=== PATIENT | male | born 1945 | race Caucasian/White ===

== ENCOUNTER → 2017-02-18 | Outpatient (REF) | payer OTHER | LOC: M LAB REF 16:49 | PROVIDERS: ATTEND Orthopaedic Surgery | DX: M25.522 Pain in left elbow (principal) ==

== ENCOUNTER 2017-06-25 06:13 | Day surgery (SDC) | payer OTHER ==
[~2017-06-25] VITALS: Ht 182.9 cm; Wt 93.0 kg
[~2017-06-25 06:13] MED LIST: ACETAMINOPHEN 325 MG TAB PO PRN; ATEN100T PO; LR 500 ML IV SCH; MULT1TAB10 PO; NEXI40CA PO; RAMI5CA PO
[2017-06-25] MEDS ORDERED: LIDOCAINE 1% MDV 20ML VIAL SC ONE (06:30)
[2017-06-25] MEDS ORDERED: TRIAMCINOLONE PRES FR 40 MG/ML 1ML(TRIESENCE)(OR EYE ONLY)(J3300 PER 1MG) As Ordered ONE (06:41)
[2017-06-25] MEDS ORDERED: LIDOCAINE 1% SDV 5 ML VIAL As Ordered ONE (06:41)
[2017-06-25] MEDS ORDERED: POVIDONE-IODINE 5% OPHTH PREP SOL 30ML As Ordered ONE (06:41)
[2017-06-25] MEDS ORDERED: MOXIFLOXACIN IN BSS 0.25MG/0.25ML INTRACAMERAL INJ (OR EYE ONLY)(J2280) As Ordered ONE (06:42)
[2017-06-25] MEDS ORDERED: HEALON DUET (HEALON 10MG/ML 0.55ML & HEALON ENDOCOAT 30MG/ML 0.85ML) As Ordered ONE (06:42)
[2017-06-25] MEDS ORDERED: LIDOCAINE 3.5 % 1ML OPHTH TOPICAL GEL As Ordered ONE (06:43)
[2017-06-25] MEDS ORDERED: BSS with VANC/TOB/EPI for EYE CASES IR ONE (07:00)
[2017-06-25] MEDS ORDERED: CYCLOPENTOLATE 2% OPHTH SOLN 2ML BTL OS ONE (07:00)
[2017-06-25] MEDS ORDERED: TROPICAMIDE 1% OPHTH SOLN 2ML OS ONE (07:00)
[2017-06-25] MEDS ORDERED: LIDOCAINE 3.5 % 1ML OPHTH TOPICAL GEL OU ONE (07:00)
[2017-06-25] MEDS ORDERED: PHENYLEPHRINE 2.5% OPHTH SOL 2ML OS ONE (07:00)
[2017-06-25] MEDS ORDERED: OFLOXACIN 0.3 % (OCUFLOX) OPTH SOL 5ML OS ONE (07:00)
[2017-06-25] MEDS ORDERED: PROPARACAINE 0.5% OPHTH SOL 15ML OS PRN (07:01)
[2017-06-25] MEDS ORDERED: MIDAZOLAM INJ 2 MG/2 ML VIAL (J2250) As Ordered ONE (07:39)
[2017-06-25] MEDS ORDERED: fentaNYL 100 MCG/2 ML INJECTION (J3010) As Ordered ONE (07:39)
[2017-06-25] MEDS ORDERED: CEFUROXIME 1MG/0.1ML INTRACAMERAL INJ As Ordered ONE (07:56)
[2017-06-25 08:35] VITALS: BP 118/79
[2017-06-25] MEDS ORDERED: TRIMETHOBENZAMIDE 300 MG CAP PO PRN (08:45)
[2017-06-25] MEDS ORDERED: AcetaZOLAMIDE 500 MG ER CAP PO ONE (08:45)
[2017-06-25] MEDS ORDERED: KETOROLAC 0.5% OPHTH SOLN OS ONE (08:45)
== END 2017-06-25 08:58 | disposition home or self-care (01) ==
LOC: M SDC 06:13
PROVIDERS: ATTEND Ophthalmology
DX: H25.9 Unspecified age-related cataract (principal); I34.8 Other nonrheumatic mitral valve disorders; I10 Essential (primary) hypertension; Z79.899 Other long term (current) drug therapy; K21.9 Gastro-esophageal reflux disease without esophagitis; Z87.891 Personal history of nicotine dependence
CPT/HCPCS: 66984; J2250; J2280; J3010; J3300

== ENCOUNTER 2018-03-02 10:12 | Emergency (ER) | payer OTHER ==
[2018-03-02] MEDS: NS 1,000 ML IV (12:30)
[2018-03-02 13:04] LABS: BASO % 0.7 % (0.0-1.0); EOS # 0.1 10^3/uL (0.0-0.50); EOS % 1.9 % (0.0-3.0); HEMATOCRIT 49.4 % (42.0-52.0); HEMOGLOBIN 16.9 g/dl (13.5-17.5); IMMATURE GRANULOCYTE % 0.2 % (0-3.0); LYMPH # 1.4 10^3/uL (1.5-4.5); LYMPH % 34.2 % (24.0-44.0); MEAN CORPUSCULAR HEMOGLOBIN 33.4 pg (27.0-33.0); MEAN CORPUSCULAR HGB CONC 34.2 g/dl (32.0-36.5); MEAN CORPUSCULAR VOLUME 97.6 fl (80.0-96.0); MONO # 0.6 10^3/uL (0.0-0.8); NEUTROPHILS # 2.1 10^3/uL (1.8-7.7); PLATELET COUNT, AUTOMATED 204 10^3/uL (150-450); RED BLOOD COUNT 5.06 10^6/uL (4.30-6.10); RED CELL DISTRIBUTION WIDTH 12.8 % (11.5-14.5); WHITE BLOOD COUNT 4.2 10^3/uL (4.0-10.0)
[2018-03-02 13:17] LABS: INR 2.59; PROTHROMBIN TIME 28.9 SECONDS (12.4-14.5)
[2018-03-02 13:18] LABS: PARTIAL THROMBOPLASTIN TIME 47.2 SECONDS (26.8-37.9)
[2018-03-02 13:40] LABS: ALBUMIN 4.4 GM/DL (3.2-5.2); ALKALINE PHOSPHATASE 81 U/L (45-117); ALT/SGPT 55 U/L (12-78); ANION GAP 6 MEQ/L (8-16); AST/SGOT 63 U/L (7-37); BILIRUBIN,DIRECT 0.2 MG/DL (0.0-0.2); BILIRUBIN,TOTAL 0.6 MG/DL (0.2-1.0); BLOOD UREA NITROGEN 23 MG/DL (7-18); CALCIUM LEVEL 8.7 MG/DL (8.8-10.2); CARBON DIOXIDE LEVEL 27 MEQ/L (21-32); CHLORIDE LEVEL 109 MEQ/L (98-107); CREATININE FOR GFR 1.48 MG/DL (0.70-1.30); GLOMERULAR FILTRATION RATE 49.9 (>42); GLUCOSE, FASTING 93 MG/DL (70-100); LIPASE 413 U/L (73-393); POTASSIUM SERUM 4.6 MEQ/L (3.5-5.1); SODIUM LEVEL 142 MEQ/L (136-145); TOTAL PROTEIN 8.4 GM/DL (6.4-8.2)
[2018-03-02 13:42] LABS: LACTIC ACID SEPSIS PROTOCOL 0.7 MMOL/L (0.4-2.0)
== END 2018-03-02 15:07 | disposition home or self-care (01) ==
LOC: M ED 10:12
DX: R19.7 Diarrhea, unspecified (principal); E86.0 Dehydration; I48.91 Unspecified atrial fibrillation; K21.9 Gastro-esophageal reflux disease without esophagitis; Z79.899 Other long term (current) drug therapy; Z79.01 Long term (current) use of anticoagulants
CPT/HCPCS: 83690

== ENCOUNTER 2019-03-10 08:57 | Emergency (ER) | payer OTHER ==
[~2019-03-10] VITALS: Ht 182.9 cm; Wt 100.1 kg
[~2019-03-10 08:57] MED LIST changes: -ACETAMINOPHEN 325 MG TAB PO PRN; +DRON40TA PO; -LR 500 ML IV SCH; +RAMI1CAP24 PO; -RAMI5CA PO; +ROSU40TA3 PO; +XARE20TA PO
[2019-03-10] MEDS ORDERED: METO1TAB7 PO (09:20)
[2019-03-10 09:26] LABS: BASO # 0.1 10^3/uL (0.0-0.2); BASO % 1.2 % (0.0-1.0); EOS # 0.2 10^3/uL (0.0-0.50); EOS % 2.9 % (0.0-3.0); HEMATOCRIT 49.4 % (42.0-52.0); HEMOGLOBIN 16.1 g/dl (13.5-17.5); LYMPH # 2.9 10^3/uL (1.5-4.5); MEAN CORPUSCULAR HEMOGLOBIN 32.5 pg (27.0-33.0); MEAN CORPUSCULAR HGB CONC 32.6 g/dl (32.0-36.5); MONO # 0.6 10^3/uL (0.0-0.8); MONO % 8.5 % (0.0-5.0); NEUTROPHILS % 43.4 % (36.0-66.0); PLATELET COUNT, AUTOMATED 220 10^3/uL (150-450); RED BLOOD COUNT 4.95 10^6/uL (4.30-6.10); WHITE BLOOD COUNT 6.9 10^3/uL (4.0-10.0)
[2019-03-10] MEDS ORDERED: ETOMIDATE INJ 20MG/10ML VIAL IV STA (09:30)
[2019-03-10] MEDS ORDERED: ETOMIDATE INJ 20MG/10ML VIAL As Ordered ONE (09:30)
[2019-03-10] MEDS ORDERED: AMIODARONE HCL 360 MG/200 ML PREMIXED BAG (NEXTERONE) As Ordered ONE (09:35)
[2019-03-10 09:37] LABS: MEAN CORPUSCULAR VOLUME 99.8 fl (80.0-96.0)
[2019-03-10] MEDS ORDERED: AMIODARONE HCL 360 MG in APPROPRIATE DILUENT 1 EA IV SCH (09:45)
[2019-03-10 09:46] LABS: INR 1.7; PROTHROMBIN TIME 20.3 SECONDS (12.1-14.4)
[2019-03-10 09:47] LABS: PARTIAL THROMBOPLASTIN TIME 31.5 SECONDS (25.4-37.6)
[2019-03-10] MEDS ORDERED: NS 1,000 ML IV SCH (10:10)
[2019-03-10 10:12] LABS: ALBUMIN 3.8 GM/DL (3.2-5.2); ALT/SGPT 52 U/L (12-78); BILIRUBIN,DIRECT < 0.1 MG/DL (0.0-0.2); BILIRUBIN,TOTAL 0.3 MG/DL (0.2-1.0); BLOOD UREA NITROGEN 17 MG/DL (7-18); CALCIUM LEVEL 8.7 MG/DL (8.8-10.2); CARBON DIOXIDE LEVEL 19 MEQ/L (21-32); CHLORIDE LEVEL 106 MEQ/L (98-107); CPK CREATINE PHOSPHOKINASE 115 U/L (39-308); GLOMERULAR FILTRATION RATE 37.3 (>42); GLUCOSE, FASTING 290 MG/DL (70-100); LIPASE 423 U/L (73-393); MB/CK RELATIVE INDEX 10.35 (< OR =4); POTASSIUM SERUM 3.6 MEQ/L (3.5-5.1); SODIUM LEVEL 140 MEQ/L (136-145); TOTAL PROTEIN 7.6 GM/DL (6.4-8.2); TROPONIN I 0.15 NG/ML (< 0.10)
[2019-03-10 10:13] LABS: FREE T4 0.84 NG/DL (0.76-1.46)
--- NOTE | 2019-03-10 10:13 | REP ---
CHEST, PORTABLE: AP portable view of the chest is performed and compared to a prior study 11/24/2004. There is mild cardiomegaly and venous hypertension. No infiltrate is seen. There is marked tortuosity of the thoracic aorta. The mediastinal silhouette is otherwise unremarkable. IMPRESSION: Mild cardiomegaly. Venous hypertension. No acute infiltrate. Electronically Signed by Ramesh Soto MD 03/10/2019 03:37 P
[2019-03-10] MEDS ORDERED: HEPARIN DRIP 25,000 UNITS in APPROPRIATE DILUENT 1 EA IV SCH (10:20)
--- NOTE | 2019-03-10 10:27 | REP ---
CT study of the cervical spine without contrast: History: Trauma. Technique: Helical scanning is acquired and overlapping 2 mm high resolution axial images were generated and reviewed at bone and soft tissue window settings. Coronal and sagittal multiplanar re-formations images are generated. CT findings: A nasopharyngeal airway is noted in place. Osteoarthritic changes are seen at the C1-2 articulation and in the cervical spine facets. There is a degenerative cyst associated with facet osteoarthritis in the lateral articular pillar of the CT for level on the left. Degenerative disc changes are noted most pronounced at C6-7. There is no evidence of cervical spine element fracture. No skull base fracture is seen. Cervical vertebral body heights are preserved. Alignment is normal. Facet joints are normally aligned bilaterally at each cervical level on multiplanar re-formations images. There is no evidence of intraspinal or paraspinal hematoma. No extra vertebral abnormality is seen. Impression: Degenerative spondylosis changes as noted above. Otherwise negative CT study of the cervical spine without contrast. No fracture seen. The nasopharyngeal airway is noted in place. Electronically Signed by Neno Blanco MD 03/10/2019 10:19 A
--- NOTE | 2019-03-10 10:39 | REP ---
CT BRAIN WITHOUT CONTRAST: CT brain performed without IV contrast. There is a moderate degree of atrophy. There is no midline shift. There are patchy periventricular small vessel ischemic changes. There is no acute hemorrhage or extra-axial fluid collection. No skull fracture is seen. There is a catheter in the right nasal cavity. There is a retention cyst in the floor of the right maxillary sinus. IMPRESSION: No evidence of acute intracranial hemorrhage or skull fracture. Electronically Signed by Ramesh Soto MD 03/10/2019 03:38 P
[2019-03-10 11:03] VITALS: BP 138/88
--- NOTE | 2019-03-10 20:28 | ECGEPIP ---
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
--- NOTE | 2019-03-10 20:30 | ECGEPIP ---
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
== END 2019-03-10 11:03 | disposition short-term general hospital (02) ==
LOC: EDBD 08:57 → M ED 08:57 → EDUNIT# 08:57 → M ED 11:03
DX: I47.2 Ventricular tachycardia (principal); I24.9 Acute ischemic heart disease, unspecified; I10 Essential (primary) hypertension; I48.91 Unspecified atrial fibrillation; E78.5 Hyperlipidemia, unspecified; Z79.899 Other long term (current) drug therapy; Z79.01 Long term (current) use of anticoagulants

== ENCOUNTER → 2019-08-13 | Outpatient (CLI) | payer OTHER ==
[~2019-08-13] MED LIST changes: +METO1TAB7 PO; -ROSU40TA3 PO; +ROSU40TA4 PO
[2019-08-13 15:55] LABS: HEMATOCRIT 46.5 % (42.0-52.0); HEMOGLOBIN 16.1 g/dl (13.5-17.5); MEAN CORPUSCULAR HEMOGLOBIN 34.8 pg (27.0-33.0); MEAN CORPUSCULAR HGB CONC 34.6 g/dl (32.0-36.5); MEAN CORPUSCULAR VOLUME 100.6 fl (80.0-96.0); PLATELET COUNT, AUTOMATED 142 10^3/uL (150-450); RED BLOOD COUNT 4.62 10^6/uL (4.30-6.10); WHITE BLOOD COUNT 4.4 10^3/uL (4.0-10.0)
[2019-08-13 16:18] LABS: ALT/SGPT 35 U/L (12-78); BLOOD UREA NITROGEN 17 MG/DL (7-18); CALCIUM LEVEL 8.7 MG/DL (8.8-10.2); CARBON DIOXIDE LEVEL 30 MEQ/L (21-32); CHLORIDE LEVEL 104 MEQ/L (98-107); CREATININE FOR GFR 1.51 MG/DL (0.70-1.30); GLOMERULAR FILTRATION RATE 48.6 (>42); GLUCOSE, FASTING 119 MG/DL (70-100); POTASSIUM SERUM 3.8 MEQ/L (3.5-5.1); SODIUM LEVEL 140 MEQ/L (136-145)
[2019-08-13 16:19] LABS: ALBUMIN 3.9 GM/DL (3.2-5.2); BILIRUBIN,TOTAL 0.6 MG/DL (0.2-1.0); C REACTIVE PROTEIN QUANTITATIV < 0.30 MG/DL (0.00-0.30); LIPASE 218 U/L (73-393); TOTAL PROTEIN 7.4 GM/DL (6.4-8.2)
[2019-08-19 00:08] LABS: FATS NEUTRAL Normal (.); FATS TOTAL Normal (.)
== END ==
LOC: M LAB 14:51
PROVIDERS: ATTEND Internal Medicine Gastroenterology
DX: R10.13 Epigastric pain (principal); R19.7 Diarrhea, unspecified

== ENCOUNTER → 2019-10-22 | Outpatient (REF) | payer OTHER ==
[2019-10-22 18:13] LABS: APPEARANCE, URINE CLEAR (CLEAR); BACTERIA, URINE AUTO NEGATIVE (NEGATIVE); BILIRUBIN, URINE AUTO NEGATIVE (NEGATIVE); BLOOD, URINE BLOOD 1+ (NEGATIVE); COLOR, URINE YELLOW (YELLOW); GLUCOSE, URINE (UA) AUTO NEGATIVE (NEGATIVE); KETONE, URINE AUTO NEGATIVE (NEGATIVE); LEUKOCYTE ESTERASE, URINE AUTO NEGATIVE (NEGATIVE); NITRITE, URINE AUTO NEGATIVE (NEGATIVE); PROTEIN, URINE AUTO NEGATIVE (NEGATIVE); RBC, URINE AUTO 1 /HPF (0-3); SPECIFIC GRAVITY URINE AUTO 1.018 (1.002-1.035); SQUAMOUS EPITHELIAL CELL UR AU 0 /HPF (0-6); UROBILINOGEN, URINE AUTO 0.2 mg/dL (0.0-2.0); WBC, URINE AUTO 1 /HPF (0-3)
== END ==
LOC: M SMT 16:44
PROVIDERS: ATTEND Urology
DX: R35.1 Nocturia (principal)

== ENCOUNTER → 2020-02-17 | Outpatient (CLI) | payer OTHER ==
[2020-02-17 11:25] LABS: BASO % 0.7 % (0.0-1.0); EOS # 0.2 10^3/uL (0.0-0.5); EOS % 4.1 % (0.0-3.0); HEMATOCRIT 47.3 % (42.0-52.0); HEMOGLOBIN 16.2 g/dl (13.5-17.5); LYMPH # 1.4 10^3/uL (1.5-5.0); LYMPH % 26.8 % (24.0-44.0); MEAN CORPUSCULAR HEMOGLOBIN 34.8 pg (27.0-33.0); MEAN CORPUSCULAR HGB CONC 34.2 g/dl (32.0-36.5); MEAN CORPUSCULAR VOLUME 101.7 fl (80.0-96.0); MONO # 0.8 10^3/uL (0.0-0.8); MONO % 15.1 % (0.0-5.0); NEUTROPHILS # 2.8 10^3/uL (1.5-8.5); NEUTROPHILS % 52.7 % (36.0-66.0); PLATELET COUNT, AUTOMATED 161 10^3/uL (150-450); RED BLOOD COUNT 4.65 10^6/uL (4.30-6.10); WHITE BLOOD COUNT 5.4 10^3/uL (4.0-10.0)
[2020-02-17 11:53] LABS: ALBUMIN 4.1 GM/DL (3.2-5.2); BILIRUBIN,DIRECT 0.2 MG/DL (0.0-0.2); BILIRUBIN,TOTAL 0.5 MG/DL (0.2-1.0); CREATININE FOR GFR 1.39 MG/DL (0.70-1.30); FREE T4 1.17 NG/DL (0.76-1.46); GLOMERULAR FILTRATION RATE 53.3 (>42); POTASSIUM SERUM 4.1 MEQ/L (3.5-5.1); THYROID STIMULATING HORMONE 3.14 uIU/ML (0.358-3.740); TOTAL PROTEIN 7.8 GM/DL (6.4-8.2)
== END ==
LOC: M PLALAB 10:20
PROVIDERS: ATTEND Internal Medicine Cardiovascular Disease
DX: R06.09 Other forms of dyspnea (principal); Z79.899 Other long term (current) drug therapy

== ENCOUNTER → 2020-02-18 | Outpatient (CLI) | payer OTHER | LOC: M LABSMTC 10:47 | PROVIDERS: ATTEND Family Medicine | DX: Z11.59 Encounter for screening for other viral diseases (principal); Z20.828 Contact with and (suspected) exposure to other viral communicable diseases ==

== ENCOUNTER → 2020-03-06 | Outpatient (CLI) | payer OTHER ==
[2020-03-06 14:40] LABS: ALBUMIN 3.7 GM/DL (3.2-5.2); BILIRUBIN,DIRECT 0.2 MG/DL (0.0-0.2); BILIRUBIN,TOTAL 0.8 MG/DL (0.2-1.0); FREE T4 1.42 NG/DL (0.76-1.46); THYROID STIMULATING HORMONE 1.99 uIU/ML (0.358-3.740); TOTAL PROTEIN 7.2 GM/DL (6.4-8.2)
[2020-03-06 14:41] LABS: TOTAL T3 72.8 NG/DL (60.0-181.0)
== END ==
LOC: M LAB 13:19
PROVIDERS: ATTEND Internal Medicine Cardiovascular Disease
DX: R06.02 Shortness of breath (principal); T46.2X5A Adverse effect of other antidysrhythmic drugs, initial encounter

== ENCOUNTER → 2020-03-20 | Outpatient (CLI) | payer OTHER ==
[~2020-03-20] MED LIST changes: +VITAD1000T PO
== END ==
LOC: M LABSMTC 11:55
PROVIDERS: ATTEND Anesthesiology
DX: Z01.818 Encounter for other preprocedural examination (principal); Z11.59 Encounter for screening for other viral diseases
CPT/HCPCS: C9803; U0003

== ENCOUNTER 2020-03-23 07:45 | Day surgery (SDC) | payer OTHER ==
[~2020-03-23] VITALS: Ht 182.9 cm; Wt 94.8 kg
[2020-03-23] MEDS: NS 1,000 ML IV ONE (08:06)
[2020-03-23] MEDS ORDERED: LIDOCAINE 2% 100MG/5ML SDV (FOR ANES.) As Ordered ONE (09:04)
[2020-03-23] MEDS ORDERED: propofoL 200 MG/20 ML VIAL As Ordered ONE (09:04)
--- NOTE | 2020-03-23 09:21 | ROOR ---
Patient Name: Antony Daniel Procedure Date: 03/23/2020 8:51 AM Date of : 1945 Age: 74 Room: [facility] Gender: Male Note Status: Finalized Procedure: Colonoscopy Indications: High risk colon cancer surveillance: Personal history of colonic polyps Providers: Jt Oneil Jr, MD Referring MD: Skyla Cole MD Requesting Provider: Medicines: Propofol per Anesthesia Complications: No immediate complications. Procedure: Pre-Anesthesia Assessment: - Prior to the procedure, a History and Physical was performed, and patient medications and allergies were reviewed. The patient is competent. The risks and benefits of the procedure and the sedation options and risks were discussed with the patient. All questions were answered and informed consent was obtained. Patient identification and proposed procedure were verified by the physician and the nurse in the pre-procedure area and in the procedure room. Mental Status Examination: alert and oriented. Airway Examination: normal oropharyngeal airway and neck mobility. Respiratory Examination: clear to auscultation. CV Examination: normal. ASA Grade Assessment: III - A patient with severe systemic disease. After reviewing the risks and benefits, the patient was deemed in satisfactory condition to undergo the procedure. The anesthesia plan was to use moderate sedation / analgesia (conscious sedation). Immediately prior to administration of medications, the patient was re-assessed for adequacy to receive sedatives. The heart rate, respiratory rate, oxygen saturations, blood pressure, adequacy of pulmonary ventilation, and response to care were monitored throughout the procedure. The physical status of the patient was re-assessed after the procedure. The Colonoscope was introduced through the anus and advanced to the cecum, identified by appendiceal orifice and ileocecal valve. The colonoscopy was performed without difficulty. The patient tolerated the procedure well. The quality of the bowel preparation was adequate. Findings: The rectum, recto-sigmoid colon, descending colon, transverse colon, cecum, appendiceal orifice and ileocecal valve appeared normal. Three sessile polyps were found in the sigmoid colon, transverse colon and ascending colon. The polyps were small in size. These polyps were removed with a cold snare. Resection and retrieval were complete. Non-bleeding internal hemorrhoids were found during retroflexion and during endoscopy. The hemorrhoids were Grade III (internal hemorrhoids that prolapse but require manual reduction). Impression: - The rectum, recto-sigmoid colon, descending colon, transverse colon, cecum, appendiceal orifice and ileocecal valve are normal. - Three small polyps in the sigmoid colon, in the transverse colon and in the ascending colon, removed with a cold snare. Resected and retrieved. - Non-bleeding internal hemorrhoids. Recommendation: - Repeat colonoscopy in 3 - 5 years for surveillance based on pathology results. Jt Oneil MD Jt Oneil Jr, MD 03/23/2020 9:20:39 AM Electronically signed by Jt Oneil Jr, MD Number of Addenda: 0 Note Initiated On: 03/23/2020 8:51 AM Estimated Blood Loss: Estimated blood loss: none.
[2020-03-23 09:40] VITALS: BP 156/86
== END 2020-03-23 10:00 | disposition home or self-care (01) ==
LOC: M OPP 07:45
PROVIDERS: ATTEND Surgery
DX: K64.2 Third degree hemorrhoids (principal); K63.5 Polyp of colon; Z86.010 Personal history of colon polyps; Z09 Encounter for follow-up examination after completed treatment for conditions other than malignant neoplasm; K21.9 Gastro-esophageal reflux disease without esophagitis; Z79.899 Other long term (current) drug therapy; Z87.891 Personal history of nicotine dependence; Z86.13 Personal history of malaria; I48.91 Unspecified atrial fibrillation; Z95.810 Presence of automatic (implantable) cardiac defibrillator

== ENCOUNTER → 2020-08-24 | Outpatient (CLI) | payer SELFPAY ==
[~2020-08-24] MED LIST changes: +D31000TA2 PO; -VITAD1000T PO
== END ==
LOC: M LABSMTC 12:34
PROVIDERS: ATTEND Pediatrics
DX: Z11.59 Encounter for screening for other viral diseases (principal)

== ENCOUNTER → 2020-09-26 | Outpatient (CLI) | payer SELFPAY | LOC: M LABSMTC 10:09 | PROVIDERS: ATTEND Pediatrics | DX: Z11.59 Encounter for screening for other viral diseases (principal) ==

== ENCOUNTER → 2020-11-30 | Outpatient (CLI) | payer OTHER ==
--- NOTE | 2020-11-30 10:05 | REPVR ---
PROCEDURE INFORMATION: Exam: CT Temporal Bones Without Contrast. Exam date and time: 11/30/2020 8:54 AM Age: 75 years old Clinical indication: Other: Hearing loss; Additional info: Sensorineural hearing loss, bilateral TECHNIQUE: Imaging protocol: Computed tomography images of the temporal bones without contrast. Radiation optimization: All CT scans at this facility use at least one of these dose optimization techniques: automated exposure control; mA and/or kV adjustment per patient size (includes targeted exams where dose is matched to clinical indication); or iterative reconstruction. COMPARISON: CT Head without contrast 03/10/2019 9:44 AM FINDINGS: Right inner ear: Normal. Right ossicles and middle ear: Normal. The middle ear ossicles are intact. Right external auditory canal: Normal. Right facial nerve canal: Normal. Right jugular foramen: No jugular dehiscence. Right carotid canal: No aberrent carotid canal. Right mastoid air cells: Normal. No mastoid effusions. Left inner ear: Normal. Left ossicles and middle ear: Normal. The middle ear ossicles are intact. Left external auditory canal: Normal. Left facial nerve canal: Normal. Left jugular foramen: No jugular dehiscence. Left carotid canal: No aberrent carotid canal. Left mastoid air cells: Normal. No mastoid effusions. Soft tissues: Unremarkable. IMPRESSION: No acute findings. Electronically signed by: Dann Nunez On 11/30/2020 10:05:23 AM
== END ==
LOC: M RAD 08:48
PROVIDERS: ATTEND Otolaryngology
DX: H90.3 Sensorineural hearing loss, bilateral (principal)

== ENCOUNTER → 2021-05-15 | Outpatient (CLI) | payer OTHER ==
[~2021-05-15] MED LIST changes: +DRON400T PO; -DRON40TA PO
--- NOTE | 2021-05-15 17:03 | REP ---
INDICATION: CERVICALGIA. COMPARISON: None. TECHNIQUE: Nine views including flexion extension lateral views. FINDINGS: Lateral views done in flexion extension and neutral position show straightening. Alignment is otherwise normal. Vertebral body heights are preserved. Disc spaces are maintained except at C5-6 and C6-7. These levels are slightly narrowed in there is anterior osteophyte formation at these 2 levels. No subluxation or instability is seen. Open mouth odontoid view is unremarkable. AP radiograph demonstrates osteoarthritic facet hypertrophy most pronounced on the left at C2-3 and C3-4 but also present bilaterally at C4-5. Oblique images demonstrate neural foraminal encroachment from facet arthropathy on the left at C2-3 C3-4 and C4-5 and on the right at C4-5. A cardiac pacemaker is noted. Swimmer's lateral view shows no additional abnormality. IMPRESSION: Degenerative spondylosis changes as noted above. No acute bony abnormality. <Electronically signed by Aldo Blanco > 05/15/21 [id number]
== END ==
LOC: M RAD 11:26
PROVIDERS: ATTEND Family Medicine
DX: M47.812 Spondylosis without myelopathy or radiculopathy, cervical region (principal); Z95.0 Presence of cardiac pacemaker

== ENCOUNTER 2021-06-27 15:47 | Inpatient (IN) | payer OTHER ==
[~2021-06-27] VITALS: Ht 182.9 cm; Wt 93.3 kg
[2021-06-27] MEDS ORDERED: VERA120C3 PO (16:15)
--- NOTE | 2021-06-27 16:45 | REP ---
INDICATION: DYSPNEA/COUGH. COMPARISON: Comparison portable chest x-ray March 10, 2019. TECHNIQUE: Portable upright AP chest radiograph. FINDINGS: Bipolar pacemaker is seen in place. Heart is mildly enlarged unchanged. Pulmonary vasculature is cephalized as before. The pleural angles are sharp. There is linear density in the left base consistent with platelike atelectasis. No definite infiltrate. IMPRESSION: Linear density in the left base consistent with platelike atelectasis. Cardiomegaly and cephalization. Pacemaker. Otherwise no acute disease. <Electronically signed by Aldo Blanco > 06/27/21 [id number]
[2021-06-27] MEDS ORDERED: ACETAMINOPHEN TAB 650MG DOSE (2X325MG) PO ONE (17:15)
[2021-06-27] MEDS ORDERED: METOPROLOL 5 MG/5 ML VIAL IV STA (17:16)
[2021-06-27] MEDS ORDERED: RAMI1CAP26 PO (17:50)
[2021-06-27] MEDS ORDERED: METH25TAB PO (17:50)
[2021-06-27] MEDS ORDERED: TOPR100T PO (17:50)
[2021-06-27] MEDS ORDERED: D31000TA2 PO (17:51)
[2021-06-27] MEDS ORDERED: HOME MED LIST COMPLETE! XX SCH (17:55)
[2021-06-27 18:41] LABS: BASO % 0.2 % (0.0-1.0); HEMATOCRIT 44.2 % (42.0-52.0); HEMOGLOBIN 14.7 g/dl (13.5-17.5); LYMPH # 1.1 10^3/uL (1.5-5.0); LYMPH % 10.3 % (24.0-44.0); MEAN CORPUSCULAR HEMOGLOBIN 32.7 pg (27.0-33.0); MEAN CORPUSCULAR HGB CONC 33.3 g/dl (32.0-36.5); MEAN CORPUSCULAR VOLUME 98.4 fl (80.0-96.0); MONO # 1.7 10^3/uL (0.0-0.8); MONO % 15.9 % (2.0-8.0); NEUTROPHILS % 73.1 % (36.0-66.0); PLATELET COUNT, AUTOMATED 162 10^3/uL (150-450); RED BLOOD COUNT 4.49 10^6/uL (4.30-6.10)
[2021-06-27 19:02] LABS: INR 1.79; PROTHROMBIN TIME 21.2 SECONDS (12.7-14.5)
[2021-06-27 19:03] LABS: PARTIAL THROMBOPLASTIN TIME 47.3 SECONDS (25.9-37.0)
[2021-06-27 19:04] LABS: ALBUMIN 3.6 GM/DL (3.2-5.2); ALT/SGPT 26 U/L (12-78); BILIRUBIN,DIRECT 0.4 MG/DL (0.0-0.2); BILIRUBIN,TOTAL 1.1 MG/DL (0.2-1.0); BLOOD UREA NITROGEN 14 MG/DL (7-18); CALCIUM LEVEL 9.1 MG/DL (8.8-10.2); CARBON DIOXIDE LEVEL 27 MEQ/L (21-32); CHLORIDE LEVEL 106 MEQ/L (98-107); CK-MB VALUE MASS < 1.0 NG/ML (<3.6); CPK CREATINE PHOSPHOKINASE 23 U/L (39-308); CREATININE FOR GFR 1.07 MG/DL (0.70-1.30); FERRITIN 159 NG/ML (26-388); GLOMERULAR FILTRATION RATE > 60.0 (>42); GLUCOSE, FASTING 106 MG/DL (70-100); LDH LACTATE DEHYDROGENASE 222 U/L (87-241); MAGNESIUM LEVEL 1.7 MG/DL (1.8-2.4); MB/CK RELATIVE INDEX 4.35 (< OR =4); NT-PRO BNP 2210 PG/ML (<125); POTASSIUM SERUM 4.3 MEQ/L (3.5-5.1); SODIUM LEVEL 137 MEQ/L (136-145); THYROID STIMULATING HORMONE < 0.005 uIU/ML (0.358-3.740); TOTAL PROTEIN 7.7 GM/DL (6.4-8.2); TROPONIN I 0.04 NG/ML (< 0.10)
[2021-06-27 19:05] LABS: D-DIMER QUANT 694.39 ng/ml (<500)
[2021-06-27] MEDS ORDERED: ISOVUE-370 76% 100ML VIAL As Ordered ONE (19:38)
[2021-06-27 19:44] LABS: WHITE BLOOD COUNT 10.9 10^3/uL (4.0-10.0)
[2021-06-27 21:24] LABS: FREE T4 2.11 NG/DL (0.76-1.46)
--- NOTE | 2021-06-27 23:31 | REPVR ---
PROCEDURE INFORMATION: Exam: CTA Chest With Contrast Exam date and time: 06/27/2021 11:13 PM Age: 75 years old Clinical indication: Other: Covid positive chest pain SOB TECHNIQUE: Imaging protocol: Computed tomographic angiography of the chest with contrast. 3D rendering (Not supervised by radiologist): MIP and/or 3D reconstructed images were created by the technologist. Radiation optimization: All CT scans at this facility use at least one of these dose optimization techniques: automated exposure control; mA and/or kV adjustment per patient size (includes targeted exams where dose is matched to clinical indication); or iterative reconstruction. Contrast material: ISOVUE 370; Contrast volume: 75 ml; Contrast route: INTRAVENOUS (IV); COMPARISON: CR PORTABLE CHEST X-RAY 06/27/2021 4:26 PM FINDINGS: Pulmonary arteries: Normal. No pulmonary emboli. Aorta: Unremarkable. No aortic aneurysm. No aortic dissection. Lungs: Unremarkable. No consolidation. No masses. Pleural spaces: Unremarkable. No pneumothorax. No pleural effusion. Heart: Unremarkable. No cardiomegaly. No pericardial effusion. Lymph nodes: Unremarkable. No enlarged lymph nodes. Bones/joints: Unremarkable. No acute fracture. Soft tissues: Unremarkable. IMPRESSION: No acute findings. Electronically signed by: Kendall Lockwood On 06/27/2021 23:31:43 PM
--- NOTE | 2021-06-28 03:20 | HPEPDOC ---
General Date of Admission 06/28/2021 Date of Service: Jun 28, 2021 Chief Complaint The patient is a 75-year-old male admitted with a reason for visit of Atrial Fibrillation W/Rvr,Covid, Hyperthyroidism. Source: Patient, Old records Exam Limitations: No limitations Timing/Duration: Day(s) (7) Severity: Moderate History of Present Illness Patient is a very pleasant 75 year old male with past medical history of A. fib and hyperthyroidism who was tested positive for Covid-19 presented to ER via ambulance due to dyspnea for 7 days. He reported dyspnea has been about the same. Denies any coughing, rhinorrhea, loss of smell, loss of taste, chills, nausea, vomiting, diarrhea. He reported a temperature of 100.2F yesterday. He said he has no known sick contract or recent travel history. Home Medications Scheduled Cholecalciferol (Vitamin D3) (Vitamin D3) 1,000 Unit Tablet, 1,000 UNITS PO DAILY, (Reported) Methimazole (Methimazole) 5 Mg Tablet, 5 MG PO BID, (Reported) NEW MED, NOT STARTED YET Metoprolol Succinate (Toprol Xl) 100 Mg Tab.er.24h, 100 MG PO DAILY, (Reported) Ramipril (Ramipril) 10 Mg Capsule, 10 MG PO DAILY, (Reported) Rivaroxaban (Xarelto) 20 Mg Tab, 20 MG PO DAILY, (Reported) Rosuvastatin Calcium (Rosuvastatin Calcium) 40 Mg Tab, 40 MG PO DAILY, (Reported) Verapamil HCl (Verapamil Sr) 120 Mg Cap24h.pel, 120 MG PO QHS, (Reported) Allergies Coded Allergies: No Known Allergies (Unverified , 03/20/20) Past Medical History Medical History A. fib s/p pacemaker placement Hypertrophic obstructive cardiomyopathy Vitamin D deficiency Hyperthyroidism Surgical History Colonoscopy 2013 Pacemaker and defibrillator placement 2019 Family History Both parents were Social History * Smoker: Denies Recent Travel/Sick Contacts: Denies: Recent travel, Recent sick contacts A-FIB/CHADSVASC A-FIB History Current/History of A-Fib/PAF?: Yes Current PO Anticoag Therapy: Yes Age/Risk Factor Scoring CHADSVASC: CHADSVASC Response (Comments) Value Age Risk Factor Age >/= 75 years old 2 Gender Risk Factor Male 0 Hx of CHF No 0 Hx of HTN No 0 Hx of Stroke/TIA/or VTE No 0 Hx of Diabetes No 0 Hx of Vascular Disease No 0 Total 2 Review of Systems Constitutional: Denies: Chills ENT: Denies: Ear Pain, Other Symptoms (Denies rhinorrhea or loss of smell/loss of taste) Pulmonary: Reports: Dyspnea; Denies: Cough Cardiovascular: Denies: Chest Pain, Palpitations, Orthopnea Gastrointestinal: Denies: Nausea, Vomiting, Abdominal Pain, Diarrhea Neurological: Denies: Weakness Physical Examination General Exam: Positive: Alert, Cooperative, No Acute Distress Eye Exam: Positive: Conjunctiva & lids normal; Negative: Sclera icteric ENT Exam: Positive: Atraumatic, Mucous membr. moist/pink, Tongue Midline Neck Exam: Positive: Supple Chest Exam: Positive: Clear to auscultation, Normal air movement; Negative: Rales, Rhonchi, Wheezing Heart Exam: Positive: Rate Normal, Regular Rhythm; Negative: Murmurs Extremity Exam: Negative: Edema Skin Exam: Positive: Nl turgor and temperature Neuro Exam: Positive: Normal Speech Psych Exam: Positive: Mental status NL, Mood NL, Memory Intact, Oriented x 3 Vital Signs Vital Signs Date Time Temp Pulse Resp B/P (MAP) Pulse Ox O2 Delivery O2 Flow Rate FiO2 06/27/21 23:17 86 16 97 Nasal Cannula 2.0 06/27/21 23:00 131/78 (95) 06/27/21 16:10 100.6 Laboratory Data Labs 24H Laboratory Tests 2 06/27/21 17:35: Lactic Acid Level 1.4 06/27/21 17:46: Immature Granulocyte % (Auto) 0.5, Neutrophils (%) (Auto) 73.1H, Lymphocytes (%) (Auto) 10.3L, Monocytes (%) (Auto) 15.9H, Eosinophils (%) (Auto) 0.0, Basophils (%) (Auto) 0.2, Neutrophils # (Auto) 8.0, Lymphocytes # (Auto) 1.1L, Monocytes # (Auto) 1.7H, Eosinophils # (Auto) 0.0, Basophils # (Auto) 0.0, Nucleated Red Blood Cells % (auto) 0.0, Prothrombin Time 21.2H, Prothromb Time International Ratio 1.79, Activated Partial Thromboplast Time 47.3H, Fibrinogen 563H, D-Dimer, Quantitative 694.39H, Anion Gap 4L, Glomerular Filtration Rate > 60.0, Calcium Level 9.1, Magnesium Level 1.7L, Ferritin 159, Total Bilirubin 1.1H, Direct Bilirubin 0.4H, Aspartate Amino Transf (AST/SGOT) 18, Alanine Aminotransferase (ALT/SGPT) 26, Alkaline Phosphatase 69, Lactate Dehydrogenase 222, Total Creatine Kinase 23L, Creatine Kinase MB < 1.0, Creatine Kinase MB Relative Index 4.35H, Troponin I 0.04, C-Reactive Protein, Quantitative 12.90H, KK-Zol-P-Type Natriuretic Peptide 2210H, Total Protein 7.7, Albumin 3.6, Albumin/Globulin Ratio 0.9, Procalcitonin <0.05, Thyroid Stimulating Hormone (TSH) < 0.005L, Free Thyroxine 2.11H 06/27/21 18:19: SARS Antigen (LFIA) POSITIVEH CBC/BMP Laboratory Tests 06/27/21 17:46 Microbiology Microbiology 06/27/21 Blood Culture, Received Pending 06/27/21 Blood Culture, Received Pending Assessment/Plan 1. Dyspnea and hypoxia due to COVID-19 -tested positive for Covid-19 in ER -Vitals and oxygen saturation monitoring, oxygen therapy PRN to maintain pulse ox>90% -Remdisvir and Decadron -Follow up CBC, BMP, liver panel, and inflammatory markers -droplet/contact isolation, awake pronation -r/o superimposed infection with legionella, strep pneumo, and mycoplasma pneumonia 2. Atrial fibrillation -Continue home med Xarelto, Verapamil, Toprol XL 3. Hyperthyroidism -patient's TSH<0.0005 with free T4 within normal range -He was prescribed Methimazole as home med, but he has not started it yet. Start home med Methimazole during hospitalization DVT prophylaxis: Continue home med Xarelto. SCD/TEDS Plan / VTE VTE Prophylaxis Ordered?: Yes Plan Disposition COVID-19 patient with dyspnea, pending symptom and oxygen saturation improvement GME ATTESTATION GME ATTESTATION My faculty preceptor for this patient encounter was physically present during the encounter and was fully available. All aspects of the patient interview, examination, medical decision making process, and medical care plan development were reviewed and approved by the faculty preceptor. The faculty preceptor is aware and concurs with the plan as stated in the body of this note and will attest to such by his/her cosignature. ATTENDING NOTE I, Sarahy Juárezsef, have independently examined this patient and performed my own physical exam, as well as reviewed the documentation and edited where necessary. I have discussed in detail with the resident / student the findings and plan of treatment as documented by the resident / student and edited their note. I agree with their findings and treatment plan and have edited their documentation. I will continue to follow the patient during this hospital stay. Start Methimazole for hyperthyroidism. Fu with PCP and repeat TSH testing. OUSMANE PHELPS DO Jun 28, 2021 03:20 CRISTIAN GARDNER MD Jun 28, 2021 06:50
[2021-06-28] MEDS ORDERED: MAGNESIUM OXIDE 400MG TAB (MAG-OX) PO ONE (04:00)
[2021-06-28 04:03] VITALS: BP 134/85
[2021-06-28] MEDS: dexameTHASONE 4 MG/ML 1ML VIAL (J1100 PER 1MG) IV SCH ×2 (04:33→09:22)
[2021-06-28] MEDS: VERAPAMIL 120 MG SR TAB PO SCH ×2 (05:23→21:14)
[2021-06-28] MEDS ORDERED: REMDESIVIR 200 MG in NS 250 ML IV ONE (06:00)
[2021-06-28 08:00] VITALS: BP 97/59
[2021-06-28] MEDS ORDERED: SODIUM CHLORIDE 0.9% INJ 10 ML SYR IV ONE (08:00)
[2021-06-28] MEDS ORDERED: METOPROLOL SUCC (TopROL XL) 100MG *XL* TAB PO SCH (09:00)
[2021-06-28] MEDS ORDERED: ramipriL 5 MG CAP PO SCH (09:00)
[2021-06-28] MEDS: ROSUVASTATIN 10 MG TAB (CRESTOR) PO SCH (09:23)
[2021-06-28] MEDS: VITAMIN D 1,000 INTERNATIONAL UNITS TABLET PO SCH (09:23)
[2021-06-28 10:01] LABS: BASO % 0.1 % (0.0-1.0); HEMATOCRIT 44.3 % (42.0-52.0); HEMOGLOBIN 14.3 g/dl (13.5-17.5); LYMPH # 0.6 10^3/uL (1.5-5.0); LYMPH % 7.7 % (24.0-44.0); MEAN CORPUSCULAR HEMOGLOBIN 32.4 pg (27.0-33.0); MEAN CORPUSCULAR HGB CONC 32.3 g/dl (32.0-36.5); MEAN CORPUSCULAR VOLUME 100.2 fl (80.0-96.0); MONO # 0.2 10^3/uL (0.0-0.8); MONO % 2.8 % (2.0-8.0); NEUTROPHILS # 7.3 10^3/uL (1.5-8.5); NEUTROPHILS % 88.7 % (36.0-66.0); PLATELET COUNT, AUTOMATED 164 10^3/uL (150-450); RED BLOOD COUNT 4.42 10^6/uL (4.30-6.10); WHITE BLOOD COUNT 8.2 10^3/uL (4.0-10.0)
[2021-06-28 10:19] LABS: INR 1.81; PROTHROMBIN TIME 21.4 SECONDS (12.7-14.5)
[2021-06-28 10:20] LABS: PARTIAL THROMBOPLASTIN TIME 50.2 SECONDS (25.9-37.0)
[2021-06-28 10:22] LABS: D-DIMER QUANT 602.36 ng/ml (<500)
[2021-06-28 10:44] VITALS: O2SAT 92
[2021-06-28 10:48] LABS: C REACTIVE PROTEIN QUANTITATIV 17.4 MG/DL (0.00-0.30)
[2021-06-28 10:50] LABS: ALBUMIN 3.1 GM/DL (3.2-5.2); ALT/SGPT 21 U/L (12-78); BILIRUBIN,DIRECT 0.4 MG/DL (0.0-0.2); BILIRUBIN,TOTAL 1.1 MG/DL (0.2-1.0); BLOOD UREA NITROGEN 18 MG/DL (7-18); CARBON DIOXIDE LEVEL 25 MEQ/L (21-32); CHLORIDE LEVEL 105 MEQ/L (98-107); CREATININE FOR GFR 1.02 MG/DL (0.70-1.30); GLOMERULAR FILTRATION RATE > 60.0 (>42); GLUCOSE, FASTING 231 MG/DL (70-100); MAGNESIUM LEVEL 1.8 MG/DL (1.8-2.4); SODIUM LEVEL 136 MEQ/L (136-145); TOTAL PROTEIN 7.7 GM/DL (6.4-8.2)
[2021-06-28] MEDS ORDERED: NS 500 ML IV ONE ×2 (11:45→18:55)
[2021-06-28 12:00] VITALS: BP 103/64
[2021-06-28 16:00] VITALS: BP 100/66; O2SAT 95
[2021-06-28] MEDS ORDERED: RIVAROXABAN 20 MG TAB (XARELTO) PO SCH (18:00)
--- NOTE | 2021-06-28 18:49 | ECGEPIP ---
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
--- NOTE | 2021-06-28 19:00 | IPNPDOC ---
Subjective Date Seen The patient was seen on 06/28/21. Subjective Chief Complaint/HPI Mr. Daniel is a 75 year old male with atrial fibrillation s/p pacemaker placement and hyperthyroidism who is here for atrial fibrillation with RVR and is COVID positive. This morning, he was feeling better than yesterday, but not yet at baseline. Dyspnea and fatigue improved. Denied any chest pain. SBP<100 and Toprol XL had to be held. He tells me that on Friday, he started taking Toprol XL 100mg qD. Before he was on Toprol XL 50mg qD. Possibly a cause to his low blood pressure. Will switch him back to 50mg qD and give 500mg fluid bolus x2. Objective Physical Examination General Exam: Positive: Alert, Cooperative Eye Exam: Negative: Sclera icteric ENT Exam: Positive: Atraumatic, Tongue Midline Neck Exam: Positive: Supple Chest Exam: Positive: Clear to auscultation Heart Exam: Positive: Rate Normal, Regular Rhythm Extremity Exam: Negative: Edema Neuro Exam: Positive: Normal Speech Psych Exam: Positive: Mental status NL, Mood NL Assessment /Plan Assessment Mr. Daniel is a 75 year old male with atrial fibrillation s/p pacemaker placement and hyperthyroidism who is here for atrial fibrillation with RVR and is COVID positive. Patient's COVID infection and hypoxia may have caused him to go into afib with RVR. Patient required 2L of NC on admission, but with treatment is doing okay at room air. He is still mildly hypotensive, which may be due to the increase in Toprol XL. Will go back to [place] XL 50mg qD and give fluid boluses. Plan/VTE VTE Prophylaxis Ordered?: Yes Plan 1. Hypoxia 2/2 COVID infection -Imaging negative for PNA and procalcitonin negative -Continue with dexamethasone and Remdesivir -Resolved 2. Afib with RVR -May be secondary to hypoxia and COVID infection -Patient was put on Verapamil and Toprol XL. RVR resolved -Continue Xarelto 3. Hyperthyroidism -Continue methimazole 4. Hypertension -Patient now hypotensive -Discontinue Ramipril -Decrease dosage of Toprol XL -Continue Verapamil 5. DVT ppx -Patient on Xarelto Disposition: Pending improvement in blood pressure and clinical improvement. VS, I&O, 24H, Fishbone Vital Signs/I&O Vital Signs Date Time Temp Pulse Resp B/P (MAP) Pulse Ox O2 Delivery O2 Flow Rate FiO2 06/28/21 16:00 95 Room Air 06/28/21 16:00 96.4 82 20 100/66 (77) 06/28/21 08:00 2.0 Laboratory Data 24H LABS Laboratory Tests 2 06/28/21 09:16: Immature Granulocyte % (Auto) 0.7, Neutrophils (%) (Auto) 88.7H, Lymphocytes (%) (Auto) 7.7L, Monocytes (%) (Auto) 2.8, Eosinophils (%) (Auto) 0.0, Basophils (%) (Auto) 0.1, Neutrophils # (Auto) 7.3, Lymphocytes # (Auto) 0.6L, Monocytes # (Auto) 0.2, Eosinophils # (Auto) 0.0, Basophils # (Auto) 0.0, Nucleated Red Blood Cells % (auto) 0.0, Prothrombin Time 21.4H, Prothromb Time International Ratio 1.81, Activated Partial Thromboplast Time 50.2H, Fibrinogen 612H, D-Dimer, Quantitative 602.36H, Anion Gap 6L, Glomerular Filtration Rate > 60.0, Calcium Level 9.0, Magnesium Level 1.8, Ferritin 226, Total Bilirubin 1.1H, Direct Bilirubin 0.4H, Aspartate Amino Transf (AST/SGOT) 14, Alanine Aminotransferase (ALT/SGPT) 21, Alkaline Phosphatase 62, Lactate Dehydrogenase 172, Total Creatin e Kinase 33L, C-Reactive Protein, Quantitative 17.40H, Total Protein 7.7, Albumin 3.1L, Albumin/Globulin Ratio 0.7, Procalcitonin <0.05 CBC/BMP Laboratory Tests 06/28/21 09:16 Microbiology Microbiology 06/27/21 Blood Culture - Preliminary, Resulted No growth after 24 hours . All specim... 06/27/21 Blood Culture - Preliminary, Resulted No growth after 24 hours . All specim... ROSA GARCIA DO Jun 28, 2021 19:00
[2021-06-28 20:00] VITALS: BP 111/67; O2SAT 90
[2021-06-29] VITALS: BP 116/71
[2021-06-29] MEDS ORDERED: UNRESOLVED CLARIFICATION ENTRY XX SCH (00:01)
[2021-06-29 02:00] VITALS: O2SAT 97
[2021-06-29 04:00] VITALS: BP 113/67; O2SAT 97
[2021-06-29] MEDS ORDERED: REMDESIVIR 100 MG in NS 250 ML IV SCH (06:00)
[2021-06-29] MEDS: SODIUM CHLORIDE 0.9% INJ 10 ML SYR IV SCH ×2 (06:31→10:20)
[2021-06-29 07:58] LABS: BASO % 0.1 % (0.0-1.0); HEMATOCRIT 40.8 % (42.0-52.0); HEMOGLOBIN 13.6 g/dl (13.5-17.5); LYMPH # 0.8 10^3/uL (1.5-5.0); LYMPH % 6.3 % (24.0-44.0); MEAN CORPUSCULAR HEMOGLOBIN 32.9 pg (27.0-33.0); MEAN CORPUSCULAR HGB CONC 33.3 g/dl (32.0-36.5); MEAN CORPUSCULAR VOLUME 98.6 fl (80.0-96.0); MONO % 8.2 % (2.0-8.0); NEUTROPHILS # 10.5 10^3/uL (1.5-8.5); NEUTROPHILS % 84.3 % (36.0-66.0); PLATELET COUNT, AUTOMATED 165 10^3/uL (150-450); RED BLOOD COUNT 4.14 10^6/uL (4.30-6.10); WHITE BLOOD COUNT 12.5 10^3/uL (4.0-10.0)
[2021-06-29 08:07] VITALS: BP 112/75
[2021-06-29 08:33] LABS: ALBUMIN 2.8 GM/DL (3.2-5.2); ALT/SGPT 17 U/L (12-78); BILIRUBIN,DIRECT 0.2 MG/DL (0.0-0.2); BILIRUBIN,TOTAL 0.4 MG/DL (0.2-1.0); BLOOD UREA NITROGEN 22 MG/DL (7-18); CALCIUM LEVEL 8.7 MG/DL (8.8-10.2); CARBON DIOXIDE LEVEL 26 MEQ/L (21-32); CHLORIDE LEVEL 110 MEQ/L (98-107); CREATININE FOR GFR 0.81 MG/DL (0.70-1.30); GLOMERULAR FILTRATION RATE > 60.0 (>42); GLUCOSE, FASTING 132 MG/DL (70-100); POTASSIUM SERUM 4.3 MEQ/L (3.5-5.1); SODIUM LEVEL 141 MEQ/L (136-145); TOTAL PROTEIN 6.6 GM/DL (6.4-8.2)
[2021-06-29] MEDS ORDERED: METOPROLOL SUCC (TopROL XL) 50MG **XL** TAB PO SCH (09:00)
[2021-06-29] MEDS: VITAMIN D 1,000 INTERNATIONAL UNITS TABLET PO SCH (10:17)
[2021-06-29 10:18] VITALS: BP 112/75
[2021-06-29] MEDS: ROSUVASTATIN 10 MG TAB (CRESTOR) PO SCH (10:18)
[2021-06-29] MEDS: dexameTHASONE 4 MG/ML 1ML VIAL (J1100 PER 1MG) IV SCH (10:19)
[2021-06-29 12:00] VITALS: BP 117/73
[2021-06-29] MEDS ORDERED: PRED10TA2 PO (12:15)
[2021-06-29] MEDS ORDERED: METO1TAB7 PO (12:15)
[2021-06-29 15:09] LABS: MYCOPLASMA PNEUMONIAE IgG 1132 U/mL (0-99); MYCOPLASMA PNEUMONIAE IgM 1295 U/mL (0-769)
--- NOTE | 2021-06-29 22:59 | DS.PDOC ---
Discharge Summary General Date of Admission Jun 27, 2021 at 15:48 Date of Discharge Jun 29, 2021 Discharge Summary PROCEDURES PERFORMED DURING STAY: None ADMITTING DIAGNOSES: 1. COVID 19 respiratory infection 2. Atrial fibrillation with RVR 3. Hyperthyroidism DISCHARGE DIAGNOSES: 1. COVID 19 respiratory infection 2. Atrial fibrillation with RVR 3. Hyperthyroidism 4. Hypertension COMPLICATIONS/CHIEF COMPLAINT: Atrial Fibrillation W/Rvr,Covid, Hyperthyroidism. HISTORY OF PRESENT ILLNESS: Copied from admitting provider's H&P " Patient is a very pleasant 75 year old male with past medical history of A. fib and hyperthyroidism who was tested positive for Covid-19 presented to ER via ambulance due to dyspnea for 7 days. He reported dyspnea has been about the same. Denies any coughing, rhinorrhea, loss of smell, loss of taste, chills, nausea, vomiting, diarrhea. He reported a temperature of 100.2F yesterday. He said he has no known sick contract or recent travel history. " HOSPITAL COURSE: Patient had tested positive for COVID and was given Decadron and remdesivir. CT angio chest did not demonstrate any signs of pneumonia and his procalcitonin was low. No antibiotics needed. He initially required 2L of NC, but that was rapidly weaned off. Otherwise at night, he would desaturate, but oxygen improves while he is awake. He may benefit from a sleep study. Otherwise, his atrial fibrillation with RVR was rapidly controlled with oral rate control meds. He was going to be discharge the next day, but then was found to be hypotensive with SBP< 100. Patient tells me that about a day prior to admission, his Toprol XL was increased from 50mg qD to 100mg qD. Toprol XL was held and patient was given fluids. The next day, he was put on Toprol XL 50mg qD. Blood pressure is more stable with Toprol XL. He denied any chest pain. He had some dyspnea on exertion, which would be expected for a viral respiratory infection. His blood pressure was stable, heart rate was controlled, and was weaned off of oxygen. Patient felt okay for home and was discharged home today with a prednisone taper DISCHARGE MEDICATIONS: Please see below. ALLERGIES: Please see below. PHYSICAL EXAMINATION ON DISCHARGE: VITAL SIGNS: Please see below. GENERAL: Comfortable, in no apparent distress HEENT: Head normocephalic, atraumatic NECK: Supple CARDIOVASCULAR EXAMINATION: Regular rate and rhythm RESPIRATORY EXAMINATION: Lungs clear to auscultation bilaterally ABDOMINAL EXAMINATION: Soft, non-tender, normal bowel sounds EXTREMITIES: No pitting edema bilaterally SKIN: Warm and dry NEUROLOGICAL EXAMINATION: CN 3-12 grossly intact PSYCHIATRIC EXAMINATION: Normal mood and affect LABORATORY DATA: Please see below. IMAGING: Radiologist interpretation CT angio chest No acute findings. PROGNOSIS: Good ACTIVITY: As tolerated DIET: As tolerated DISCHARGE PLAN: Home DISPOSITION: 01 Home, Self-Care. DISCHARGE INSTRUCTIONS: 1. Follow up with PCP in 1 week 2. Take prednisone taper to completion ITEMS TO FOLLOWUP ON ON OUTPATIENT: 1. Consider sleep study for nocturnal hypoxia and snoring DISCHARGE CONDITION: Stable Total time spent on discharge planning, discharge summary, and medication reconciliation: 45 minutes Vital Signs/I&Os Vital Signs Date Time Temp Pulse Resp B/P (MAP) Pulse Ox O2 Delivery O2 Flow Rate FiO2 06/29/21 12:43 94 Room Air 06/29/21 12:00 96.8 87 17 117/73 (88) 0.0 I&O- Last 24 Hours up to 6 AM 06/29/21 06:00 Intake Total 960 ml Output Total 0 ml Balance 960 ml Laboratory Data Labs 24H Laboratory Tests 2 06/29/21 07:01: Immature Granulocyte % (Auto) 1.1, Neutrophils (%) (Auto) 84.3H, Lymphocytes (%) (Auto) 6.3L, Monocytes (%) (Auto) 8.2H, Eosinophils (%) (Auto) 0.0, Basophils (%) (Auto) 0.1, Neutrophils # (Auto) 10.5H, Lymphocytes # (Auto) 0.8L, Monocytes # (Auto) 1.0H, Eosinophils # (Auto) 0.0, Basophils # (Auto) 0.0, Nucleated Red Blood Cells % (auto) 0.0, Anion Gap 5L, Glomerular Filtration Rate > 60.0, Calcium Level 8.7L, Magnesium Level 2.0, Total Bilirubin 0.4#, Direct Bilirubin 0.2, Aspartate Amino Transf (AST/SGOT) 12, Alanine Aminotransferase (ALT/SGPT) 17, Alkaline Phosphatase 66, Total Protein 6.6, Albumin 2.8L, Albumin/Globulin Ratio 0.7 CBC/BMP Laboratory Tests 06/29/21 07:01 Microbiology Microbiology 06/27/21 Blood Culture - Preliminary, Resulted No Growth after 48 hours. All Specime... 06/27/21 Blood Culture - Preliminary, Resulted No Growth after 48 hours. All Specime... Discharge Medications Scheduled Cholecalciferol (Vitamin D3) (Vitamin D3) 1,000 Unit Tablet, 1,000 UNITS PO DAILY, (Reported) Methimazole (Methimazole) 5 Mg Tablet, 5 MG PO BID, (Reported) NEW MED, NOT STARTED YET Metoprolol Succinate (Metoprolol Succinate) 50 Mg Tab.er.24h, 50 MG PO DAILY Prednisone (Prednisone) 10 Mg Tablet, 10 MG PO TAPER Take 4 tabs daily x 3 days, then 3 tabs daily x 3 days, then 2 tabs daily x 3 days, then 1 tab daily x 3 days and stop Rivaroxaban (Xarelto) 20 Mg Tab, 20 MG PO DAILY, (Reported) Rosuvastatin Calcium (Rosuvastatin Calcium) 40 Mg Tab, 40 MG PO DAILY, (Reported) Verapamil HCl (Verapamil Sr) 120 Mg Cap24h.pel, 120 MG PO QHS, (Reported) Allergies Coded Allergies: No Known Allergies (Unverified , 03/20/20) ROSA GARCIA DO Jun 29, 2021 22:59
== END 2021-06-29 17:13 | disposition home health service (06) | DRG 178 ==
LOC: M ED 15:47 → EDBD 15:47 → M ED INP 15:48 → M 4MAIN 06-28 04:16
PROVIDERS: ADMIT Family Medicine; ATTEND Internal Medicine
PROC: XW033E5 Introduction of Remdesivir Anti-infective into Peripheral Vein, Percutaneous Approach, New Technology Group 5 (ICD-10-PCS; principal; 2021-06-29)
DX: U07.1 COVID-19 (principal); I42.2 Other hypertrophic cardiomyopathy; I48.91 Unspecified atrial fibrillation; E55.9 Vitamin D deficiency, unspecified; E05.90 Thyrotoxicosis, unspecified without thyrotoxic crisis or storm; Z95.0 Presence of cardiac pacemaker; I10 Essential (primary) hypertension; Z79.899 Other long term (current) drug therapy

== ENCOUNTER → 2021-08-30 | Outpatient (CLI) | payer OTHER ==
[~2021-08-30] MED LIST changes: +METH25TAB PO; +PRED10TA2 PO; +RAMI1CAP26 PO; +TOPR100T PO; +VERA120C3 PO
[2021-08-30 18:31] LABS: FREE T4 2.27 NG/DL (0.76-1.46); THYROID STIMULATING HORMONE < 0.005 uIU/ML (0.358-3.740)
== END ==
LOC: M LAB 16:16
PROVIDERS: ATTEND Internal Medicine Endocrinology, Diabetes & Metabolism
DX: E05.90 Thyrotoxicosis, unspecified without thyrotoxic crisis or storm (principal)

== ENCOUNTER 2021-09-17 10:12 | Emergency (ER) | payer OTHER ==
[~2021-09-17] VITALS: Ht 182.9 cm; Wt 90.0 kg
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
[2021-09-17 11:04] LABS: VENOUS BASE EXCESS 2.3 (-2.0-2.0); VENOUS HCO3 28.9 MEQ/L (23.0-27.0); VENOUS O2 SATURATION 53.7 % (60.0-80.0); VENOUS PARTIAL PRESSURE O2 32.1 mmHg (30.0-50.0); VENOUS PH 7.354 UNITS (7.330-7.430); VENOUS STANDARD HCO3 25.5 MEQ/L; VENOUS TOTAL CO2 30.5 MEQ/L (24.0-28.0)
[2021-09-17 11:10] LABS: BASO % 0.3 % (0.0-1.0); EOS % 0.2 % (0.0-3.0); HEMATOCRIT 40.3 % (42.0-52.0); HEMOGLOBIN 12.6 g/dl (13.5-17.5); LYMPH # 0.9 10^3/uL (1.5-5.0); LYMPH % 9.5 % (24.0-44.0); MEAN CORPUSCULAR HEMOGLOBIN 30.5 pg (27.0-33.0); MEAN CORPUSCULAR HGB CONC 31.3 g/dl (32.0-36.5); MEAN CORPUSCULAR VOLUME 97.6 fl (80.0-96.0); MONO # 1.1 10^3/uL (0.0-0.8); NEUTROPHILS # 6.8 10^3/uL (1.5-8.5); NEUTROPHILS % 76.1 % (36.0-66.0); PLATELET COUNT, AUTOMATED 335 10^3/uL (150-450); RED BLOOD COUNT 4.13 10^6/uL (4.30-6.10)
--- OUTSIDE RECORDS SUMMARY | 2021-09-17 11:11 | CCD | Continuity of Care Document ---
Author Author Antony ASCENCIO MD Organization Unknown Address [address] [place] [address] Phone [phone] Care Team Providers Care Washroom Operator Name Role Phone Morgan Schultz MD AUT[facility] [phone] Problems Description No Information Available Social History Type Date Description Comments Sex Unknown Tobacco Use Start: Unknown End: Unknown Former Cigarette Smo ker quit age 50s ETOH Use Consumes 1 beer per day Tobacco Use Start: Unknown End: Unknown Patient is a former smoker Recreational Drug Use Denies Drug Use Exercise Type/Frequency Exercises sporadically a ctive at work Allergies and adverse reactions Description No Known Drug Allergies Medications Active Medications SIG Qnty Indications Ordering Provide r Date Amoxicillin 500mg Capsules 4 tabs prior to procedure Unknown Vitamin D3 25mcg (1000 Ut) Capsule s 1 by mouth every day Unknown Ramipril 10mg Capsules 1 by mouth every day Unknown Xarelto 20mg Tablets 1 by mouth every day Unknown Rosuvastatin Calcium 40mg Tablets 1 by mouth every day Unknown Verapamil HCL 120mg Tablets take 1 tab by mouth qd Unknown Metoprolol Succinate ER 100mg Tablets ER 24HR 1 by mouth every day Unknown /0 000 Immunizations CPT Code Status Date Vaccine Lot # [id number] Given 01/02/2021 Covid-19 Moderna vaccine, mRNA, LNP-S, PF,100mcg/0.5 mL 1st dose [id number] Given 12/03/2020 Covid-19 Moderna vaccine, mRNA, LNP-S, PF,100mcg/0.5 mL 1st dose [id number] Vital Signs Date Vital Result Comment 08/14/2021 12:06pm Body Temperature 95.7 F Weight 211.00 lb Heart Rate 82 /min BP Systolic 122 mmHg BP Diastolic 68 mmHg Height 72 inches 6'0" O2 % BldC Oximetry 95 % [place] Body Weight 178 lb BMI (Body Mass Index) 28.6 kg/m2 Results Test Acquired Date Facility Test Result H/L Range Note Laboratory test finding 08/14/2021 [facility] <pending> TSH Ultrasensitive <pending> Procedures Description No Information Available Medical Devices Description No Information Available Encounters Description No Information Available Assessments Date Code Description Provider 08/14/2021 E05.90 Thyrotoxicosis, unsp ecified without thyrotoxic crisis or storm Sofy Ascencio MD 08/14/2021 I48.0 Paroxysmal atrial fibrillation S Sofy joyce MD 08/14/2021 Z68.28 Body mass index [BMI] 28.0-28.9, adult Sofy Ascencio MD Plan of Treatment 08/14/2021 - Sofy Ascencio MD* E05.90 Thyrotoxicosis, unspecified without thyrotoxic crisis or storm* Comments:* 76-year-old white male with history of atrial fibrillation was found to be significantly hyperthyroid- The pathophysiology and various Rx as well Rx vs no Rx discussed with patient at length. He has been started on Tapazole 3 months ago and has had some improvement in his s/s. I discussed various Rxs and she was options of I 131 Rx, surgery or stay on antithyroid medications and pros and cons of each were d/w him at length. If he chooses I 131 Rx, he will have to get off of tapazole for a week and than scan and uptake would have to be done to calculate the dose of JOHNSON but this would put him at a high risk of having recurrent atrial fibrillation while he is off the methimazole getting workup done. The better option at this point is to continue treatment with tapazole. I have discussed side effects of tapazole including small possibilty of agranulocytosis as well as hepatic damage.. He understands and is aware that she should stop tapazole and call me away if she develops ST or blisters in the mouth. I will check CBC, CMP and thyroid function test and adjust the dose accordingly. * I48.0 Paroxysmal atrial fibrillation* Comments:* Patient had recent cardioversion done. It is important for him to stay in the euthyroid range to prevent recurrence of atrial fibrillation. * Z68.28 Body mass index [BMI] 28.0-28.9, adult Functional Status Description No Information Available Mental Status Description No Information Available Referrals Description No Information Available
--- OUTSIDE RECORDS SUMMARY | 2021-09-17 11:11 | CCD | Continuity of Care Document ---
Author Author Antony HERNANDEZ M.D. Organization Unknown Address [address] [place] [address] Phone [phone] Care Team Providers Care Food And Beverage Assistant Name Role Phone Miguel Guillermo MD AUT[facility] [phone] [facility] - Dermatology AUTM [phone] [facility] Gastroenterology AUTM [phone] [facility] AUTM [phone] Problems Active Problems Provider Date Vitamin D deficiency Lety Heredia, RPA-C Onset: 012 Hypertrophic Obstructive Cardiomyopathy Arturo Darling M.D. 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 Quit in 2013 Recreational Drug Use Denies Drug Use Exercise Type/Frequency Exercises regularly Exercise Type/Frequency walks 2 miles twice a we ek Exercise Type/Frequency walks 2 miles twice a we ek Tattoo/Piercing None Sun Exposure Uses sunscreen Seat Belt/Car Seat Always uses seat belt Bike Helmet Always Smoke Alarms Yes Smoke Alarms Carbon Monoxide Detector: Yes Allergies, Adverse Reactions, Alerts Description No Known Drug Allergies Medications Active Medications SIG Qnty Indications Ordering Provide r Date Pantoprazole Sodium 40mg Tablets D R 1 cap by mouth every day for heartburn/acid reflux 90tabs Skyla Pate M.D. 06/15/2020 Ramipril 10mg Capsules 1 by mouth every day Unknown Metoprolol Succinate ER 50mg Tablets ER 24HR 1 by mouth bid Unknown Rosuvastatin Calcium 40mg Tablets take 1 tablet daily for cholesterol Unknown Xarelto 20mg Tablets 1 by mouth every day Unknown Amoxicillin 500mg Capsules 4 tabs prior to dental work Unknown Vitamin D3 Super Strength 50mcg (1999 Ut) Capsules 1 by mouth every day Unknown 0 000 Fibercon 625mg Tablets one po qd Unknown Zyrtec Allergy 10mg Tablets 1 by mouth every day Unknown Verapamil HCL 120mg Tablets take one tablet by mouth at night Unknown 0 000 Immunizations CPT Code Status Date Vaccine Lot # [id number] Given 01/02/2021 Moderna Sars-(Co vid-19) vaccine, mRNA, LNP-S, PF, 100 mcg/ 0.5 mL [id number] Given 12/03/2020 Moderna Sars-(Co vid-19) vaccine, mRNA, LNP-S, PF, 100 mcg/ 0.5 mL 42854 Given 08/17/2019 Influenza Virus Vaccine, Quadrivalent,age 3 and up,multidose vial [id number] Refused 04/05/2021 Pneumococcal Vaccine 00440 Refused 12/07/2018 Prevnar 13 For Adults 35761 Refused 12/07/2018 Pneumococcal Vaccine 31164 Refused 12/12/2016 Pneumococcal Vaccine 95657 Refused 12/12/2016 Prevnar 13 Vital Signs Date Vital Result Comment 05/15/2021 10:16am BP Systolic 155 mmHg BP Diastolic 76 mmHg BP Systolic Recheck 143 mmHg BP Diastolic Recheck 78 mmHg Heart Rate 64 /min Body Temperature 97.1 F Respiratory Rate 18 /min Height 71.5 inches 5'11.50" Weight 217.12 lb O2 % BldC Oximetry 96 % Peak Expiratory Flow Rate 503 Estimated Peak Flow Rate [place] Body Weight 172 lb BMI (Body Mass Index) 29.9 kg/m2 04/05/2021 8:18am BP Systolic 141 mmHg BP Diastolic 75 mmHg BP Systolic Recheck 148 mmHg BP Diastolic Recheck 72 mmHg Heart Rate 67 /min Body Temperature 97.6 F Respiratory Rate 17 /min Height 71.5 inches 5'11.50" Weight 220.38 lb O2 % BldC Oximetry 94 % Peak Expiratory Flow Rate 503 Estimated Peak Flow Rate [place] Body Weight 172 lb BMI (Body Mass Index) 30.3 kg/m2 Results Test Acquired Date Facility Test Result H/L Range Note Laboratory test finding 06/27/2021 [place] [address] [phone] Mariah Covid Antigen POSITIVE High Negative Cardiac Marker Panel 06/27/2021 [place] [address] [phone] CPK Creatine Phosphokinase 23 U/L Low 39-30 8 CK-MB Value Mass < 1.0 NG/ML Normal <3.6 MB/CK Relative Index 4.35 High < Or =4 1 Troponin I 0.04 NG/ML Normal < 0.10 2 Liver Profile 06/27/2021 [place] [address] [phone] Ast/Sgot 18 U/L Normal 7-37 Alt/SGPT 26 U/L Normal 12-78 Alkaline Phosphatase 69 U/L Normal 45-117 Bilirubin,Total 1.1 mg/dL High 0.2-1.0 Bilirubin,Direct 0.4 mg/dL High 0.0-0.2 Total Protein 7.7 GM/DL Normal 6.4-8.2 Albumin 3.6 GM/DL Normal 3.2-5.2 Albumin/Globulin Ratio 0.9 Normal Basic Metabolic Profile 06/27/2021 [place] [address] [phone] Glucose, Fasting 106 mg/dL High 70-100 Blood Urea Nitrogen 14 mg/dL Normal 7-18 Creatinine For GFR 1.07 mg/dL Normal 0.70-1.30 Glomerular Filtration Rate > 60.0 Normal >42 3 Sodium Level 137 mEq/L Normal 136-145 Potassium Serum 4.3 mEq/L Normal 3.5-5.1 Chloride Level 106 mEq/L Normal 98-107 Carbon Dioxide Level 27 mEq/L Normal 21-32 Anion Gap 4 mEq/L Low 8-16 Calcium Level 9.1 mg/dL Normal 8.8-10.2 Laboratory test finding 06/27/2021 [place] [address] [phone] LDH Lactate Dehydrogenase 222 U/L Normal 87-241 Magnesium Level 1.7 mg/dL Low 1.8-2.4 NT-Pro BNP 2210 pg/mL High <125 Thyroid Stimulating Hormone < 0.005 uIU/ML Low 0.358-3.740 Ferritin 159 NG/ML Normal 26-388 C Reactive Protein Quantitativ 12.90 mg/dL High 0.00-0.30 PT & Aptt 06/27/2021 [place] [address] [phone] Prothrombin Time 21.2 seconds High 12.7-14.5 Inr 1.79 Normal 4 Partial Thromboplastin Time 47.3 seconds High 25.9-37.0 Laboratory test finding 06/27/2021 [place] [address] [phone] Fibrinogen 563 mg/dL High 268-480 D-Dimer Quant 694.39 ng/ml High <500 Procalcitonin <0.05 Normal 5 CBC With Differential 06/27/2021 [place] [address] [phone] White Blood Count 10.9 10 High 4.0-10.0 6 Red Blood Count 4.49 10 Normal 4.30-6.10 Hemoglobin 14.7 g/dL Normal 13.5-17.5 Hematocrit 44.2 % Normal 42.0-52.0 Mean Corpuscular Volume 98.4 fl High 80.0-96.0 Mean Corpuscular Hemoglobin 32.7 pg Normal 27.0-33.0 Mean Corpuscular HGB Conc 33.3 g/dL Normal 32.0-36.5 Red Cell Distribution Width 12.6 % Normal 11.5-14.5 Platelet Count, Automated 162 10 Normal 150-450 Neutrophils % 73.1 % High 36.0-66.0 Lymph % 10.3 % Low 24.0-44.0 [place] % 15.9 % High 2.0-8.0 Eos % 0.0 % Normal 0.0-3.0 Baso % 0.2 % Normal 0.0-1.0 Immature Granulocyte % 0.5 % Normal 0-3.0 Nucleated Red Blood Cell % 0.0 % Normal 0-0 Neutrophils # 8.0 10 Normal 1.5-8.5 Lymph # 1.1 10 Low 1.5-5.0 [place] # 1.7 10 High 0.0-0.8 Eos # 0.0 10 Normal 0.0-0.5 Baso # 0.0 10 Normal 0.0-0.2 Laboratory test finding 06/27/2021 [place] [address] [phone] Free T4 2.11 ng/dL High 0.76-1.46 Laboratory test finding 06/27/2021 [facility] [place] [id number] [phone] Lactic Acid Sepsis Protocol 1.4 mmol/L Normal 0.4- 2.0 7 1 DIAGNOSIS CRITERIA MMB ng/ml Relative Index (RI) NON-AMI < or = 5 N/A REDMOND ZONE > 5 < or = 4 AMI > 5 > 4 2 Troponin I Reference Interva l for Siemens Nourish LOCI: 99th Percentile= 0.00-0.045 ng/ml Risk Stratification: <= 0.10 ng/ml Decreased Risk for Adverse Clinical Events. 0.10-1.50 ng/ml Increased Risk for Adv erse Clinical Events. Evaluation of additional criterion and/or repeat testing in 2-6 hours is suggested to rule out myocardial damage. >= 1.50 ng/ml Indicative of Myocardial Injury. 3 Units are mL/min/1.73 m2 Chronic Kidney Disease Staging per NKF: Stage I & II GFR >=60 Normal to Mildly Decreased Stage III GFR 30-59 Moderately Decreased Stage IV GFR 15-29 Severely Decreased Stage V GFR <15 Very Little GFR Left ESRD GFR <15 on FINANCIAL OPERATIONS CLERK 4 THERAPUTIC HUMAN INR VALUES INDICATIONS NORMAL RANGES PROPHYLAXIS/TREATMENT OF: VENOUS THROMBOSIS 2.0-3.0 PULMONARY EMBOLISM 2.0-3.0 PREVENTION OF SYSTEMIC EMBOLISM FROM: TISSUE HEART VALVES 2.0-3.0 ACUTE MYOCARDIAL INFARCTION 2.0-3.0 VALVULAR HEART DISEASE 2.0-3.0 ATRIAL FIBRILLATION 2.0-3.0 MECHANICAL VALVES(HIGH RISK) 2.5-3.5 RECURRENT MYOCARDIAL INFARCTION 2.5-3.5 5 SEPSIS INTERPRETATION OF RES ULTS <0.5 ng/ml Low risk for progression to severe sepsis and or septic shock. 0.50-2.00 ng/ml Sepsis should be consid ered. >2.00 ng/ml High risk for progression to severe sepsis and or septic shock. LOWER RESPIRATORY TRACT INFECTION REFERENCE INTERVAL <0.1 ng/ml Antibiotics strongly discouraged. 0.1-0.25 ng/ml Antibiotics are disc ouraged. 0.26-0.5 ng/ml Antibiotics are enco uraged. >0.5 ng/ml Antibiotics are strongly encouraged. 6 A Pathologist review of this differential can help in the evaluation of a differential diagnosis. Please order a Pathologist Review (PERISM) if deemed necessary. Results are subject to change if a Pathologist Review is performed. 7 Y/N query for Sepsis Lactate Rule: Y Procedures Date Code Description Status 05/15/2021 31762 Office/Outpatient Established Lo w MDM 20-29 Min Completed 04/05/2021 55116 Preventive Medicine Over 65 Year s Completed 04/05/2021 55316 Office/Outpatient Established Lo w MDM 20-29 Min Completed 03/23/2020 [id number] Colonoscopy Completed Medical Devices Description No Information Available Encounters Type Date Location Provider Dx Diagnosis Office Visit 05/15/2021 10:30a Main Office Skyla Hernandez M.D. M 54.2 Cervicalgia Office Visit 04/05/2021 8:30a Main Office Skyla Hernandez M.D. I 42.1 Obstructive hypertrophic cardiomyopathy K21.9 Gastro-esophageal reflux dis ease without esophagitis I10 Essential (primary) hyperten yves H90.A11 Condctv hear loss, uni, r ea r with rstrcd hear cntra side Z00.00 Encntr for general adult med ical exam w/o abnormal findings Assessments Date Code Description Provider 05/15/2021 M54.2 Cervicalgia Skyla Hernandez M.D. 04/05/2021 I42.1 Obstructive hypertrophic cardiom yopathy Skyla Hernandez M.D. 04/05/2021 K21.9 Gastro-esophageal reflux disease without esophagitis Skyla Hernandez M.D. 04/05/2021 I10 Essential (primary) hypertension Skyla Hernandez M.D. 04/05/2021 H90.A11 Conductive hearing l oss, unilateral, right ear with restricted hearing on the contralateral side Skyla Hernandez M.D. 04/05/2021 Z00.00 Encounter for genera l adult medical examination without abnormal findings Skyla Hernandez M.D. Plan of Treatment Future Appointment(s):* 10/05/2021 8:15 am - Skyla Hernandez M.D. at Main Office 05/15/2021 - Skyla Hernandez M.D.* M54.2 Cervicalgia* Comments:* x-ray, PT, follow up heat. * Follow up:* 4-6 weeks Functional Status Functional Condition Comment Date Status Independent with all ADL's Activ e Glasses Active Independent with all IADL's Acti ve Mental Status Mental Condition Comment Date Status None Active Referrals Description No Information Available
--- OUTSIDE RECORDS SUMMARY | 2021-09-17 11:11 | CCD | Continuity of Care Document ---
Author Author Antony HERNANDEZ M.D. Organization Unknown Address [address] [place] [address] Phone [phone] Care Team Providers Care Cloth Bleaching Supervisor Name Role Phone Miguel Guillermo MD AUTM [phone] [facility] - Dermatology AUTM [phone] [facility] Gastroenterology AUTM [phone] [facility] - [facility] AUTM [phone] Problems Active Problems Provider Date Vitamin D deficiency Lety Heredia R, RPA-C Onset: 012 Hypertrophic Obstructive Cardiomyopathy Arturo Darling M.D. Onset: 05/14/2012 Social History Type Date Description Comments Sex Unknown Tobacco Use Start: Unknown previously smoked 1 ppd x 30 yea rs Tobacco Use Start: Unknown End: Unknown Former Cigarette Smo ker quit 08/2012 Smoking Status Reviewed: 08/30/21 Former Cigarette Smoker quit 08/2012 Tobacco Use [...] Yes Smoke Alarms Carbon Monoxide Detector: Yes Allergies and adverse reactions Description No Known Drug Allergies Medications Active Medications SIG Qnty Indications Ordering Provide r Date Colchicine 0.6mg Capsules 2 by mouth now then 1 by mouth twice a day for 7 days after symptoms resolve. 30caps M10.9 Skyla Hernandez M.D. 08/30/2021 Methimazole 5mg Tablets take 5mg one tab twice daily 60taSkyla Ortiz M.D. 021 Pantoprazole Sodium 40mg Tablets D R 1 cap by mouth every day for heartburn/acid reflux 90taSkyla Ritchie M.D. 06/15/2020 Ramipril 10mg Capsules 1 by mouth every day Unknown Metoprolol Succinate ER 50mg Tablets ER 24HR 1 by mouth bid Unknown Rosuvastatin Calcium 40mg Tablets take 1 tablet daily for cholesterol Unknown Xarelto 20mg Tablets 1 by mouth every day 30taSkyla Ortiz M.D. Amoxicillin 500mg Capsules 4 tabs prior to dental work Unknown Vitamin D3 Super Strength 50mcg (2000 Ut) Capsules 1 by mouth every day Unknown 000 Fibercon 625mg Tablets one po qd Unknown Zyrtec Allergy 10mg Tablets 1 by mouth every day Unknown Verapamil HCL 120mg Tablets take one tablet by mouth at night 30Skyla Gonzalez M.D . Digoxin 125mcg Tablets 1 by mouth every day Unknown History Medications Prednisone 10mg Tablets 4 po q d xs 3 d then 3 q d xs 3 d then 2 q d xs 3 d then 1 qd for 3 days then D/C Unknown 06/29/2021 - 08/30/2021 Immunizations CPT Code Status Date Vaccine Lot # [id number] Given 01/02/2021 Moderna Sars-(Co vid-19) vaccine, mRNA, LNP-S, PF, 100 mcg/ 0.5 mL [id number] Given 12/03/2020 Moderna Sars-(Co vid-19) vaccine, mRNA, LNP-S, PF, 100 mcg/ 0.5 mL 85098 Given 08/17/2019 Influenza Virus Vaccine, Vic drivalent,multidose vial [id number] Refused 04/05/2021 Pneumococcal Vaccine [id number] Refused 12/07/2018 Prevnar 13 For Adults 30627 Refused 12/07/2018 Pneumococcal Vaccine 85976 Refused 12/12/2016 Pneumococcal Vaccine 91406 Refused 12/12/2016 Prevnar 13 Vital Signs Date Vital Result Comment 08/30/2021 1:43pm BP Systolic 117 mmHg BP Diastolic 69 mmHg Heart Rate 84 /min Body Temperature 97.2 F Respiratory Rate 18 /min Height 71.5 inches 5'11.50" Weight 207.12 lb O2 % BldC Oximetry 96 % Peak Expiratory Flow Rate 501 Estimated Peak Flow Rate [place] Body Weight 172 lb BMI (Body Mass Index) 28.5 kg/m2 05/15/2021 10:16am BP Systolic 155 mmHg BP Diastolic 76 mmHg BP Systolic Recheck 143 mmHg BP Diastolic Recheck 78 mmHg Heart Rate 64 /min Body Temperature 97.1 F Respiratory Rate 18 /min Height 71.5 inches 5'11.50" Weight 217.12 lb O2 % BldC Oximetry 96 % Peak Expiratory Flow Rate 503 Estimated Peak Flow Rate [place] Body Weight 172 lb BMI (Body Mass Index) 29.9 kg/m2 Results Test Acquired Date Facility Test Result H/L Range Note Laboratory test finding 06/27/2021 [place] [address] [phone] Mariah Covid Antigen POSITIVE High Negative Cardiac Marker Panel 06/27/2021 [place] [address] [phone] CPK Creatine Phosphokinase 23 U/L Low 39-30 8 CK-MB Value Mass < 1.0 NG/ML Normal <3.6 MB/CK Relative Index 4.35 High < Or =4 1 Troponin I 0.04 NG/ML Normal < 0.10 2 Liver Profile 06/27/2021 Patient Service [facility] [place] [address] [phone] Ast/Sgot 18 U/L Normal 7-37 Alt/SGPT 26 U/L Normal 12-78 Alkaline Phosphatase 69 U/L Normal 45-117 Bilirubin,Total 1.1 mg/dL High 0.2-1.0 Bilirubin,Direct 0.4 mg/dL High 0.0-0.2 Total Protein 7.7 GM/DL Normal 6.4-8.2 Albumin 3.6 GM/DL Normal 3.2-5.2 Albumin/Globulin Ratio 0.9 Normal Basic Metabolic Profile 06/27/2021 [place] [address] [phone] Glucose, Fasting 106 mg/dL High 70-100 Blood [...] Laboratory test finding 06/27/2021 Patient Service [facility] [place], [place] [id number] [phone] LDH Lactate Dehydrogenase 222 U/L Normal 87-241 Magnesium Level 1.7 mg/dL Low 1.8-2.4 NT-Pro BNP 2210 pg/mL High <125 Thyroid Stimulating Hormone < 0.005 uIU/ML Low 0.358-3.740 Ferritin 159 NG/ML Normal 26-388 C Reactive Protein Quantitativ 12.90 mg/dL High 0.00-0.30 PT & Aptt 06/27/2021 Patient Service [facility] [place], [place] [id number] [phone] Prothrombin Time 21.2 seconds High 12.7-14.5 Inr 1.79 Normal 4 Partial Thromboplastin Time 47.3 seconds High 25.9-37.0 Laboratory test finding 06/27/2021 [place] [address] [phone] Fibrinogen 563 mg/dL High 268-480 D-Dimer Quant 694.39 ng/ml High <500 Procalcitonin <0.05 Normal 5 CBC With Differential 06/27/2021 Patient Service [facility]ter [place], [place] [id number] [phone] White Blood Count 10.9 10 High 4.0-10.0 [...] 36.0-66.0 Lymph % 10.3 % Low 24.0-44.0 [place] % 15.9 % High 2.0-8.0 Eos % 0.0 % Normal 0.0-3.0 Baso % 0.2 % Normal 0.0-1.0 Immature Granulocyte % 0.5 % Normal 0-3.0 Nucleated Red Blood Cell % 0.0 % Normal 0-0 Neutrophils # 8.0 10 Normal 1.5-8.5 Lymph # 1.1 10 Low 1.5-5.0 [place] # 1.7 10 High 0.0-0.8 Eos # 0.0 10 Normal 0.0-0.5 Baso # 0.0 10 Normal 0.0-0.2 Laboratory test finding 06/27/2021 [place] [address] [phone] Free T4 2.11 ng/dL High 0.76-1.46 Laboratory test finding 06/27/2021 [facility] [place] [id number] [phone] Lactic Acid Sepsis Protocol 1.4 mmol/L Normal 0.4- 2.0 7 1 DIAGNOSIS CRITERIA MMB ng/ml Relative Index (RI) NON-AMI < or = 5 N/A [place] ZONE > 5 < or = 4 AMI > 5 > 4 2 Troponin I Reference Interva l for Siemens [place] LOCI: 99th Percentile= 0.00-0.045 ng/ml Risk Stratification: [...] Little GFR Left ESRD GFR <15 on MEDICAL RECORD SPECIALIST 4 THERAPUTIC HUMAN INR VALUES INDICATIONS NORMAL [...] Rule: Y Procedures Date Code Description Status 07/06/2021 77579 Office/Outpatient Established Mo d MDM 30-39 Min Completed 05/15/2021 24722 Office/Outpatient Established Lo w MDM 20-29 Min Completed 04/05/2021 77439 Preventive Medicine Over 65 Year s Completed 04/05/2021 41602 Office/Outpatient Established Lo w MDM 20-29 Min Completed 03/23/2020 [id number] Colonoscopy Completed Medical Devices Description No Information Available Encounters Type Date Location Provider Dx Diagnosis Office Visit 07/06/2021 10:00a Main Office Skyla Hernandez M.D. U 07.1 Covid-19 R94.6 Abnormal results of thyroid function studies Office Visit 05/15/2021 10:30a Main Office Skyla [...] abnormal findings Assessments Date Code Description Provider 08/30/2021 M10.9 Gout, unspecified Stephanie Hernandez M.D. 07/06/2021 U07.1 Covid-19 Skyla Hernandez M.D. 07/06/2021 R94.6 Abnormal results of thyroid func tion studies Skyla Hernandez M.D. 05/15/2021 M54.2 Cervicalgia Skyla Hernandez M.D. 04/05/2021 [...] - Skyla Hernandez M.D. at Main Office 08/30/2021 - Skyla Hernandez M.D.* M10.9 Gout, unspecified* New Medication: * Colchicine 0.6 mg - 2 by mouth now then 1 by mouth twice a day for 7 days after symptoms resolve. Functional Status Functional Condition Comment Date Status Independent with all ADL's Activ e Glasses Active Independent with all IADL's Acti ve Mental Status Mental Condition Comment Date Status None Active Referrals Description No Information Available
--- OUTSIDE RECORDS SUMMARY | 2021-09-17 11:11 | CCD | Continuity of Care Document ---
Author Author Antony HERNANDEZ M.D. Organization Unknown Address [address] [place] [address] Phone [phone] Care Team Providers Care Knockdown Worker Name Role Phone Miguel Guillermo MD AUTM [phone] [facility] - Dermatology AUTM [phone] [facility] Gastroenterology AUTM [phone] [facility] - Hearing Aid Equipment AUTM [phone] Problems Active Problems Provider Date Vitamin D deficiency Lety Heredia, RPA-C Onset: 012 Hypertrophic Obstructive Cardiomyopathy Arturo Darling M.D. Onset: 05/14/2012 History of SARS-CoV-2 Skyla Hernandez M.D. Onset: 2020 Social History Type Date Description Comments Sex [...] smoker 1/4 pack per day. Quit in 2012 Recreational Drug Use Denies Drug Use Exercise [...] Tablets take 5mg one tab twice daily 60tabs Skyla Hernandez M.D. 021 Pantoprazole Sodium 40mg Tablets D R 1 cap by mouth every day for heartburn/acid reflux 90tabs Skyla Pate M.D. 06/15/2020 Ramipril 10mg Capsules 1 by mouth every day Unknown Metoprolol Succinate ER 50mg Tablets ER 24HR 1 by mouth bid Unknown Rosuvastatin Calcium 40mg Tablets take 1 tablet daily for cholesterol Unknown Xarelto 20mg Tablets 1 by mouth every day 30tabs Skyla Hernandez M.D. Amoxicillin 500mg Capsules 4 tabs prior to dental work Unknown Vitamin D3 Super Strength 50mcg (2000 Ut) Capsules 1 by mouth every day Unknown 000 Fibercon 625mg Tablets one po qd Unknown Zyrtec Allergy 10mg Tablets 1 by mouth every day Unknown Verapamil HCL 120mg Tablets take one tablet by mouth at night 30taSkyla Ortiz M.D . Digoxin 125mcg Tablets 1 by mouth every day Unknown History Medications Prednisone 10mg Tablets 4 po q d xs 3 d then 3 q d xs 3 d then 2 q d xs 3 d then 1 qd for 3 days then D/C Unknown 06/29/2021 - 08/30/2021 Immunizations CPT Code Status Date Vaccine Lot # [id number] Given 01/02/2021 Moderna Sars-(Co vid-19) vaccine, mRNA, LNP-S, PF, 100 mcg/ 0.5 mL 54345 Given 12/03/2020 Moderna Sars-(Co vid-19) vaccine, mRNA, LNP-S, PF, 100 mcg/ 0.5 mL 48250 Given 08/17/2019 Influenza Virus Vaccine, Vic drivalent,multidose vial 44353 Refused 04/05/2021 Pneumococcal Vaccine 92556 Refused 12/07/2018 Prevnar 13 For Adults 01558 Refused 12/07/2018 Pneumococcal Vaccine 70823 Refused 12/12/2016 Pneumococcal Vaccine 97667 Refused 12/12/2016 Prevnar 13 Vital Signs Date Vital Result Comment 08/30/2021 1:43pm BP Systolic 117 mmHg BP Diastolic 69 mmHg Heart Rate 84 /min Body Temperature 97.2 F Respiratory Rate 18 /min Height 71.5 inches 5'11.50" Weight 207.12 lb O2 % BldC Oximetry 96 % Peak Expiratory Flow Rate 501 Estimated Peak Flow Rate Post Body Weight 172 lb BMI (Body Mass [...] Flow Rate 503 Estimated Peak Flow Rate Post Body Weight 172 lb BMI (Body Mass Index) 29.9 kg/m2 Results Test Acquired Date Facility Test Result H/L Range Note FT4&TSH Panel 08/30/2021 [place] [address] [phone] Thyroid Stimulating Hormone < 0.005 uIU/ML Low 0.358-3.740 Free T4 2.27 ng/dL High 0.76-1.46 Laboratory test finding 06/27/2021 [place] [address] [phone] Mariah Covid Antigen POSITIVE High Negative Cardiac Marker Panel 06/27/2021 [place] [address] [phone] CPK Creatine Phosphokinase 23 U/L Low 39-30 8 CK-MB Value Mass < 1.0 NG/ML Normal <3.6 MB/CK Relative Index 4.35 High < Or =4 1 Troponin I 0.04 NG/ML Normal < 0.10 2 Liver Profile 06/27/2021 [place] [address] [phone] Ast/Sgot 18 U/L Normal 7-37 Alt/SGPT 26 U/L Normal 12-78 Alkaline Phosphatase 69 U/L Normal 45-117 Bilirubin,Total 1.1 mg/dL High 0.2-1.0 Bilirubin,Direct 0.4 mg/dL High 0.0-0.2 Total Protein 7.7 GM/DL Normal 6.4-8.2 Albumin 3.6 GM/DL Normal 3.2-5.2 Albumin/Globulin Ratio 0.9 Normal Basic Metabolic Profile 06/27/2021 [place] [address] [phone] Glucose, Fasting 106 mg/dL High 70-100 Blood [...] 8.8-10.2 Laboratory test finding 06/27/2021 [place] [address] [phone] LDH Lactate Dehydrogenase 222 U/L Normal 87-241 Magnesium Level 1.7 mg/dL Low 1.8-2.4 NT-Pro BNP 2210 pg/mL High <125 Thyroid Stimulating Hormone < 0.005 uIU/ML Low 0.358-3.740 Ferritin 159 NG/ML Normal 26-388 C Reactive Protein Quantitativ 12.90 mg/dL High 0.00-0.30 PT & Aptt 06/27/2021 [place] [address] [phone] Prothrombin Time 21.2 seconds High 12.7-14.5 Inr 1.79 Normal 4 Partial Thromboplastin Time 47.3 seconds High 25.9-37.0 Laboratory test finding 06/27/2021 [place] [address] [phone] Fibrinogen 563 mg/dL High 268-480 D-Dimer Quant 694.39 ng/ml High <500 Procalcitonin <0.05 Normal 5 CBC With Differential 06/27/2021 [place] [address] [phone] White Blood Count 10.9 10 High 4.0-10.0 [...] 36.0-66.0 Lymph % 10.3 % Low 24.0-44.0 [place] % 15.9 % High 2.0-8.0 Eos % 0.0 % Normal 0.0-3.0 Baso % 0.2 % Normal 0.0-1.0 Immature Granulocyte % 0.5 % Normal 0-3.0 Nucleated Red Blood Cell % 0.0 % Normal 0-0 Neutrophils # 8.0 10 Normal 1.5-8.5 Lymph # 1.1 10 Low 1.5-5.0 [place] # 1.7 10 High 0.0-0.8 Eos # 0.0 10 Normal 0.0-0.5 Baso # 0.0 10 Normal 0.0-0.2 Laboratory test finding 06/27/2021 [place] [address] [phone] Free T4 2.11 ng/dL High 0.76-1.46 Laboratory test finding 06/27/2021 [place] [address] [phone] Lactic Acid Sepsis Protocol 1.4 mmol/L Normal 0.4- 2.0 7 1 DIAGNOSIS CRITERIA MMB ng/ml Relative Index (RI) NON-AMI < or = 5 N/A [place] ZONE > 5 < or = 4 AMI > 5 > 4 2 Troponin I Reference Interva l for Siemens [place] LOCI: 99th Percentile= 0.00-0.045 ng/ml Risk Stratification: [...] Little GFR Left ESRD GFR <15 on GROUP ART SUPERVISOR 4 THERAPUTIC HUMAN INR VALUES INDICATIONS NORMAL [...] Rule: Y Procedures Date Code Description Status 08/30/2021 31957 Office/Outpatient Established Mo d MDM 30-39 Min Completed 07/06/2021 74352 Office/Outpatient Established Mo d MDM 30-39 Min Completed 05/15/2021 27816 Office/Outpatient Established Lo w MDM 20-29 Min Completed 04/05/2021 80915 Preventive Medicine Over 65 Year s Completed 04/05/2021 77276 Office/Outpatient Established Lo w MDM 20-29 Min Completed 03/23/2020 [id number] Colonoscopy Completed Medical Devices Description No Information Available Encounters Type Date Location Provider Dx Diagnosis Office Visit 08/30/2021 1:45p Main Office Skyla Hernandez M.D. M 10.9 Gout, unspecified I48.91 Unspecified atrial fibrillat ion Z86.16 Personal history of Covid-19 E05.90 Thyrotoxicosis, unsp without thyrotoxic crisis or storm Office Visit 07/06/2021 10:00a Main Office Skyla [...] 08/30/2021 M10.9 Gout, unspecified Stephanie Hernandez M.D. 08/30/2021 I48.91 Unspecified atrial fibrillation Skyla Hernandez M.D. 08/30/2021 Z86.16 Personal history of Covid-19 Skyla Pate M.D. 08/30/2021 E05.90 Thyrotoxicosis, unsp ecified without thyrotoxic crisis or storm Skyla Hernandez M.D. 07/06/2021 U07.1 Covid-19 Skyla Hernandez [...] day for 7 days after symptoms resolve. * Comments:* treat the acute flare of gout, follow up after cardioversion. * I48.91 Unspecified atrial fibrillation * Z86.16 Personal history of Covid-19 * E05.90 Thyrotoxicosis, unspecified without thyrotoxic crisis or storm* Comments:* following with endo in [place], will try to get records. Continue methimazole in the meantime. Functional Status Functional Condition Comment Date Status Independent with all ADL's Activ e Glasses Active Independent with all IADL's Acti ve Mental Status Mental Condition Comment Date Status None Active Referrals Description No Information Available
--- OUTSIDE RECORDS SUMMARY | 2021-09-17 11:11 | CCD ---
Continuity of Care Document (CCD) Created on: 08/20/2021 DanielAntony singleton External Reference #: [id number] : [id number] Sex: Male Author Author Antony ASCENCIO MD Organization Unknown Address [address] [place] [address] Phone [phone] Care Team Providers Care Sales Warehouse Driver Name Role Phone Morgan Schultz MD AUTM [phone] Problems Description No Information Available Social History [...] CPT Code Status Date Vaccine Lot # [id number] Given 01/02/2021 Covid-19 Moderna vaccine, mRNA, LNP-S, PF,100mcg/0.5 mL 1st dose 56534 Given 12/03/2020 Covid-19 Moderna vaccine, mRNA, LNP-S, PF,100mcg/0.5 mL 1st dose [id number] Vital Signs Date Vital Result Comment 08/14/2021 12:06pm Body Temperature 95.7 F Weight 211.00 lb Heart Rate 82 /min BP Systolic 122 mmHg BP Diastolic 68 mmHg Height 72 inches 6'0" O2 % BldC Oximetry 95 % [place] Body Weight 178 lb BMI (Body Mass Index) 28.6 kg/m2 Results Test Acquired Date Facility Test Result H/L Range Note Laboratory test finding 08/14/2021 Rob Free T4 1.49 ng/dL High 0.70-1.48 1 TSH Ultrasensitive <pending> Comprehensive Met Panel-[facility] 08/14/2021 Rob Sodium 142 mmol/L 135-146 2 Potassium 4.1 mmol/L 3.5-5.2 Chloride# 105 mmol/L 97-110 3 Carbon Dioxide 27 mmol/L 24-34 Calcium 9.2 mg/dL 8.5-10.5 4 Glucose 96 mg/dL 70-105 BUN 11 mg/dL 6-26 Creatinine 1.0 mg/dL 0.5-1.4 Total Protein 6.8 g/dL 6.0-8.0 Albumin 4.0 g/dL 3.6-4.9 Globulin 2.8 g/dL 2.0-3.5 A/G Ratio 1.4 Ratio 1.0-2.2 Total Bilirubin 0.7 mg/dL 0.1-1.3 Alkaline Phosphatase 85 U/L 24-140 Alt 20 U/L 3-42 Ast 28 U/L 8-42 Anion Gap 10 mmol/L 5-15 5 Female Egfr 56 Low >60 6 Male Egfr 74 >60 7 CBC with Auto Diff-fcmg 08/14/2021 Rob WBC 5.4 K/uL 4.1-11.0 8 RBC 4.56 M/uL Low 4.60-6.10 9 Hemoglobin 14.7 gm/dL 13.5-18.0 10 Hematocrit 44.1 % 41.0-53.0 11 MCV 96.9 fL High 80.0-95.0 12 MCH 32.3 pg High 27.0-32.0 13 MCHC 33.4 g/dL 32.0-36.0 14 RDW 13.9 % 10.5-14.5 15 PLT Count 180 K/ul 150-400 16 MPV 10.0 FL 7.1-10.7 Neutrophil 55.6 % 35.0-75.0 17 Lymphocyte 23.2 % 16.0-52.0 18 Monocyte 19.0 % High 0.0-8.0 19 Eosinophil 1.3 % 0.0-5.0 Basophil 0.9 % 0.0-4.0 Abs Neutrophils 3.0 K/uL 1.8-7.7 20 Abs Lymphocytes 1.2 K/uL 1.2-4.8 21 Abs Monocytes 1.0 K/uL High 0.0-0.8 22 Abs Eosinophils 0.1 K/uL 0.0-0.5 23 Abs Basophils 0.1 K/uL 0.0-0.2 24 Laboratory test finding 08/14/2021 [place] TSH <0.01 uIU/mL Low 0.35-4.94 1 This sample is drawn by:bs 2 Updated reference range on n ew analyzer 3 Updated reference range on n ew analyzer 4 Updated reference range 05-0 5 Updated Reference Range 2-20 18 6 Concerning GFR Guidelines fo r Americans: Normal function or mild renal disease, if clinically at risk: >/= 60 mL/min Moderately decreased: 30-59 Severely decreased: 15-29 Renal failure: <15 There is reduced accuracy above 60ml/min/1.73 m squared, but the numeric value may be clinically useful in the near 60 range 7 Concerning GFR Guidelines: Normal function or mild renal disease, if clinically at risk: >/= 60 mL/min Moderately decreased: 30-59 Severely decreased: 15-29 Renal failure: <15 There is reduced accuracy above 60ml/min/1.73 m squared, but the numeric value may be clinically useful in the near 60 range Glomerular Filtration Rate (GFR) is estimated based on the CKD-EPI equation, which assumes a steady state for creatinine as recommended by the National Kidney Disease Education Program in conjunction with the National Institutes of Health and the National Kidney Foundation. Clinical conditions in which it may be necessary to measure GFR by using clearance methods include extremes of age and body size, severe malnutrition or obesity, diseases of skeletal muscle, paraplegia or quadriplegia, vegetarian diet, rapidly changing kidney function, and calculation of the dose of potentially toxic drugs that are excreted by the kidneys. 8 Updated Reference Range 09/04 9 Updated Reference Range 09/04 10 Updated Reference Range 09/04 11 Updated Reference Range 09/04 12 Updated Reference Range 09/04 13 Updated Reference Range 09/04 14 Updated Reference range 09/04 15 Updated Reference range 09/04 16 Updated Reference Range 09/04 17 Updated Reference Range 09/04 18 Updated Reference Range 09/04 19 Updated Reference Range 09/04 20 Updated Reference Range 09/04 21 Updated Reference Range 09/04 22 Updated Reference Range 09/04 23 Updated Reference Range 09/04 24 Updated Reference Range 09/04 Procedures Date Code Description Status 08/14/2021 33963 Office/Outpatient New High MDM 6 0-74 Minutes Completed Medical Devices Description No Information Available Encounters Type Date Location Provider Dx Diagnosis Office Visit 08/14/2021 11:45a [place] Sofy Ascencio MD E05.90 Thyrotoxicosis, 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
--- OUTSIDE RECORDS SUMMARY | 2021-09-17 11:11 | CCD | Continuity of Care Document ---
Author Organization Unknown Address Unknown Phone Unavailable Care Team Providers Care Mailroom Coordinator Name Role Phone Miguel Guillermo MD AUTM [phone] [facility] Dermatology AUTM [phone] [facility] Gastroenterology AUTM [phone] [facility] AUTM [phone] Problems Active Problems Provider Date Vitamin D deficiency Lety Heredia, RPA-C Onset: 012 Hypertrophic Obstructive Cardiomyopathy Arturo Darling M.D. Onset: 05/14/2012 History of SARS-CoV-2 Skyla Cole M.D. Onset: 2020 Social History Type Date [...] days after symptoms resolve. 30caps M10.9 Skyla Cole M.D. 08/30/2021 Methimazole 5mg Tablets take 5mg one tab twice daily 60tabs Skyla Cole M.D. 021 Pantoprazole Sodium 40mg Tablets D [...] CPT Code Status Date Vaccine Lot # [id number] Given 01/02/2021 Moderna Sars-(Co vid-19) vaccine, mRNA, LNP-S, PF, 100 mcg/ 0.5 mL 76795 Given 12/03/2020 Moderna Sars-(Co vid-19) vaccine, mRNA, LNP-S, PF, 100 mcg/ 0.5 mL 18763 Given 08/17/2019 Influenza Virus Vaccine, Vic drivalent,multidose vial 23520 Refused 04/05/2021 Pneumococcal Vaccine 92003 Refused 12/07/2018 Prevnar 13 For Adults 76596 Refused 12/07/2018 Pneumococcal Vaccine 33978 Refused 12/12/2016 Pneumococcal Vaccine 72602 Refused 12/12/2016 Prevnar 13 Vital Signs Date Vital Result Comment 08/30/2021 1:43pm BP Systolic 117 mmHg BP Diastolic 69 mmHg Heart Rate 84 /min Body Temperature 97.2 F Respiratory Rate 18 /min Height 71.5 inches 5'11.50" Weight 207.12 lb O2 % BldC Oximetry 96 % Peak Expiratory Flow Rate 501 Estimated Peak Flow Rate [place] Body Weight 172 lb BMI (Body Mass [...] Flow Rate 503 Estimated Peak Flow Rate [place] Body Weight 172 lb BMI (Body Mass Index) 29.9 kg/m2 Results Test Acquired Date Facility Test Result H/L Range Note FT4&TSH Panel 08/30/2021 [place] [address] [phone] Thyroid Stimulating Hormone < 0.005 uIU/ML Low 0.358-3.740 Free T4 2.27 ng/dL High 0.76-1.46 Laboratory test finding 06/27/2021 [place] [address] [phone] Mariah Covid Antigen POSITIVE High Negative Cardiac Marker Panel 06/27/2021 [place] [address] [phone] CPK Creatine Phosphokinase 23 U/L Low 39-30 8 CK-MB Value Mass < 1.0 NG/ML Normal <3.6 MB/CK Relative Index 4.35 High < Or =4 1 Troponin I 0.04 NG/ML Normal < 0.10 2 Liver Profile 06/27/2021 [place] [address] [phone] Ast/Sgot 18 U/L Normal 7-37 Alt/SGPT 26 U/L Normal 12-78 Alkaline Phosphatase 69 U/L Normal 45-117 Bilirubin,Total 1.1 mg/dL High 0.2-1.0 Bilirubin,Direct 0.4 mg/dL High 0.0-0.2 Total Protein 7.7 GM/DL Normal 6.4-8.2 Albumin 3.6 GM/DL Normal 3.2-5.2 Albumin/Globulin Ratio 0.9 Normal Basic Metabolic Profile 06/27/2021 [place] [address] [phone] Glucose, Fasting 106 mg/dL High 70-100 Blood [...] 8.8-10.2 Laboratory test finding 06/27/2021 [place] [address] [phone] LDH Lactate Dehydrogenase 222 U/L Normal 87-241 Magnesium Level 1.7 mg/dL Low 1.8-2.4 NT-Pro BNP 2210 pg/mL High <125 Thyroid Stimulating Hormone < 0.005 uIU/ML Low 0.358-3.740 Ferritin 159 NG/ML Normal 26-388 C Reactive Protein Quantitativ 12.90 mg/dL High 0.00-0.30 PT & Aptt 06/27/2021 [place] [address] [phone] Prothrombin Time 21.2 seconds High 12.7-14.5 Inr 1.79 Normal 4 Partial Thromboplastin Time 47.3 seconds High 25.9-37.0 Laboratory test finding 06/27/2021 [place] [address] [phone] Fibrinogen 563 mg/dL High 268-480 D-Dimer Quant 694.39 ng/ml High <500 Procalcitonin <0.05 Normal 5 CBC With Differential 06/27/2021 [place] [address] [phone] White Blood Count 10.9 10 High 4.0-10.0 [...] 36.0-66.0 Lymph % 10.3 % Low 24.0-44.0 [place] % 15.9 % High 2.0-8.0 Eos % 0.0 % Normal 0.0-3.0 Baso % 0.2 % Normal 0.0-1.0 Immature Granulocyte % 0.5 % Normal 0-3.0 Nucleated Red Blood Cell % 0.0 % Normal 0-0 Neutrophils # 8.0 10 Normal 1.5-8.5 Lymph # 1.1 10 Low 1.5-5.0 [place] # 1.7 10 High 0.0-0.8 Eos # 0.0 10 Normal 0.0-0.5 Baso # 0.0 10 Normal 0.0-0.2 Laboratory test finding 06/27/2021 [place] [address] [phone] Free T4 2.11 ng/dL High 0.76-1.46 Laboratory test finding 06/27/2021 [place] [address] [phone] Lactic Acid Sepsis Protocol 1.4 mmol/L Normal 0.4- 2.0 7 1 DIAGNOSIS CRITERIA MMB ng/ml Relative Index (RI) NON-AMI < or = 5 N/A REDMOND ZONE > 5 < or = 4 AMI > 5 > 4 2 Troponin I Reference Interva l for Siemens [place] LOCI: 99th Percentile= 0.00-0.045 ng/ml Risk Stratification: [...] Little GFR Left ESRD GFR <15 on DROP WIRE STRINGER 4 THERAPUTIC HUMAN INR VALUES INDICATIONS NORMAL [...] Y Procedures Date Code Description Status 07/06/2021 45380 Office/Outpatient Established Mo d MDM 30-39 Min Completed 05/15/2021 10316 Office/Outpatient Established Lo w MDM 20-29 Min Completed 04/05/2021 57358 Preventive Medicine Over 65 Year s Completed 04/05/2021 00635 Office/Outpatient Established Lo w MDM 20-29 Min Completed 03/23/2020 [id number] Colonoscopy Completed Medical Devices Description No Information Available Encounters Type Date Location Provider Dx Diagnosis Office Visit 07/06/2021 10:00a Main Office Skyla Cole M.D. U 07.1 Covid-19 R94.6 Abnormal results of thyroid function studies Office Visit 05/15/2021 10:30a Main Office Skyla Cole M.D. M 54.2 Cervicalgia Office Visit 04/05/2021 8:30a Main Office Skyla Cole M.D. I 42.1 Obstructive hypertrophic cardiomyopathy K21.9 Gastro-esophageal reflux dis ease without esophagitis I10 Essential (primary) hyperten yves H90.A11 Condctv hear loss, uni, r ea r with rstrcd hear cntra side Z00.00 Encntr for general adult med ical exam w/o abnormal findings Assessments Date Code Description Provider 08/30/2021 M10.9 Gout, unspecified Stephanie Cole M.D. 08/30/2021 I48.91 Unspecified atrial fibrillation Skyla Cole M.D. 08/30/2021 Z86.16 Personal history of Covid-19 Nikos Skyla knight M.D. 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 07/06/2021 U07.1 Covid-19 Skyla Cole M.D. 07/06/2021 R94.6 Abnormal results of thyroid func tion studies Skyla Cole M.D. 05/15/2021 M54.2 Cervicalgia Skyla Cole M.D. 04/05/2021 I42.1 Obstructive hypertrophic cardiom yopathy Skyla Cole M.D. 04/05/2021 K21.9 Gastro-esophageal reflux disease without esophagitis Skyla Cole M.D. 04/05/2021 I10 Essential (primary) hypertension Skyla Cole M.D. 04/05/2021 H90.A11 Conductive hearing l oss, unilateral, right ear with restricted hearing on the contralateral side Skyla Cole M.D. 04/05/2021 Z00.00 Encounter for genera l adult medical examination without abnormal findings Skyla Cole M.D. Plan of Treatment Future Appointment(s):* 10/05/2021 8:15 am - Skyla Cole M.D. at Main Office 08/30/2021 - Skyla Cole M.D.* M10.9 Gout, unspecified* New Medication: * [...] or storm* Comments:* following with endo in [place], will try to get records. Continue methimazole in the meantime. Functional Status Functional Condition Comment Date Status Independent with all ADL's Activ e Glasses Active Independent with all IADL's Acti ve Mental Status Mental Condition Comment Date Status None Active Referrals Description No Information Available
--- OUTSIDE RECORDS SUMMARY | 2021-09-17 11:11 | CCD ---
Continuity of Care Document (CCD) Created on: 08/20/2021 FredyAntony External Reference #: [id number] : 1945 Sex: Male Author Author Antony Hermosillo Organization Unknown Address [address] [place] [address] [address] [place] [address] Phone [phone] Care Team Providers Care Independent Insurance Adjuster Name Role Phone Morgan Schultz MD AUTM [phone] Problems Description No Information Available Social History [...] CPT Code Status Date Vaccine Lot # [id number] Given 01/02/2021 Covid-19 Moderna vaccine, mRNA, LNP-S, PF,100mcg/0.5 mL 1st dose 93546 Given 12/03/2020 Covid-19 Moderna vaccine, mRNA, LNP-S, PF,100mcg/0.5 mL 1st dose [id number] Vital Signs Date Vital Result Comment 08/14/2021 12:06pm Body Temperature 95.7 F Weight 211.00 lb Heart Rate 82 /min BP Systolic 122 mmHg BP Diastolic 68 mmHg Height 72 inches 6'0" O2 % BldC Oximetry 95 % [place] Body Weight 178 lb BMI (Body Mass Index) 28.6 kg/m2 Results Test Acquired Date Facility Test Result H/L Range Note Laboratory test finding 08/14/2021 Rob Free T4 1.49 ng/dL High 0.70-1.48 1 TSH Ultrasensitive <pending> Comprehensive Met Panel-[facility] 08/14/2021 [place] Sodium 142 mmol/L 135-146 2 Potassium 4.1 [...] 09/04 Procedures Date Code Description Status 08/14/2021 66250 Office/Outpatient New High MDM 6 0-74 Minutes Completed Medical Devices Description No Information Available Encounters Type Date Location Provider Dx Diagnosis Office Visit 08/14/2021 11:45a [place] Sofy Gill MD E05.90 Thyrotoxicosis, unsp without thyrotoxic crisis or storm I48.0 Paroxysmal atrial fibrillati on Z68.28 Body mass index [BMI] 28.0-2 8.9, adult Assessments Date Code Description Provider 08/14/2021 E05.90 Thyrotoxicosis, unsp ecified without thyrotoxic crisis or storm Sofy Gill MD 08/14/2021 I48.0 Paroxysmal atrial fibrillation S Sofy joyce MD 08/14/2021 Z68.28 Body mass index [BMI] 28.0-28.9, adult Sofy Gill MD 08/14/2021 E05.90 Thyrotoxicosis, unsp without thy rotoxic crisis or storm [facility] Plan of Treatment 08/14/2021 - Sofy Gill MD* E05.90 Thyrotoxicosis, unspecified without thyrotoxic crisis [...]
--- OUTSIDE RECORDS SUMMARY | 2021-09-17 11:11 | CCD | Continuity of Care Document ---
Author Author Antony HERNANDEZ M.D. Organization Unknown Address [address] [place] [address] Phone [phone] Care Team Providers Care Manpower Development Advisor Name Role Phone Miguel Guillermo MD AUTM [phone] [facility] - Dermatology AUTM [phone] [facility] Gastroenterology AUTM [phone] [facility] AUTM [phone] Problems Active Problems Provider Date Vitamin D [...] CPT Code Status Date Vaccine Lot # [id number] Given 01/02/2021 Moderna Sars-(Co vid-19) vaccine, mRNA, LNP-S, PF, 100 mcg/ 0.5 mL 13057 Given 12/03/2020 Moderna Sars-(Co vid-19) vaccine, mRNA, LNP-S, PF, 100 mcg/ 0.5 mL 50375 Given 08/17/2019 Influenza Virus Vaccine, Vic drivalent,multidose vial 46206 Refused 04/05/2021 Pneumococcal Vaccine 96278 Refused 12/07/2018 Prevnar 13 For Adults 21840 Refused 12/07/2018 Pneumococcal Vaccine 55395 Refused 12/12/2016 Pneumococcal Vaccine 75396 Refused 12/12/2016 Prevnar 13 Vital Signs Date Vital Result Comment 08/30/2021 1:43pm BP Systolic 117 mmHg BP Diastolic 69 mmHg Heart Rate 84 /min Body Temperature 97.2 F Respiratory Rate 18 /min Height 71.5 inches 5'11.50" Weight 207.12 lb O2 % BldC Oximetry 96 % Peak Expiratory Flow Rate 501 Estimated Peak Flow Rate [place] Body Weight 172 lb BMI (Body Mass [...] Flow Rate 503 Estimated Peak Flow Rate [place] Body Weight 172 lb BMI (Body Mass Index) 29.9 kg/m2 Results Test Acquired Date Facility Test Result H/L Range Note Laboratory test finding 06/27/2021 [place] [address] [phone] Mariah Covid Antigen POSITIVE High Negative Cardiac Marker Panel 06/27/2021 [place] [address] [phone] CPK Creatine Phosphokinase 23 U/L Low 39-30 8 CK-MB Value Mass < 1.0 NG/ML Normal <3.6 MB/CK Relative Index 4.35 High < Or =4 1 Troponin I 0.04 NG/ML Normal < 0.10 2 Liver Profile 06/27/2021 Patient Service [facility] [place] [address] [phone] Ast/Sgot 18 U/L Normal 7-37 Alt/SGPT 26 U/L Normal 12-78 Alkaline Phosphatase 69 U/L Normal 45-117 Bilirubin,Total 1.1 mg/dL High 0.2-1.0 Bilirubin,Direct 0.4 mg/dL High 0.0-0.2 Total Protein 7.7 GM/DL Normal 6.4-8.2 Albumin 3.6 GM/DL Normal 3.2-5.2 Albumin/Globulin Ratio 0.9 Normal Basic Metabolic Profile 06/27/2021 [place] [address] [phone] Glucose, Fasting 106 mg/dL High 70-100 Blood [...] Laboratory test finding 06/27/2021 Patient Service Center [place], [place] [id number] [phone] LDH Lactate Dehydrogenase 222 U/L Normal 87-241 Magnesium Level 1.7 mg/dL Low 1.8-2.4 NT-Pro BNP 2210 pg/mL High <125 Thyroid Stimulating Hormone < 0.005 uIU/ML Low 0.358-3.740 Ferritin 159 NG/ML Normal 26-388 C Reactive Protein Quantitativ 12.90 mg/dL High 0.00-0.30 PT & Aptt 06/27/2021 Patient Service [facility] [place], [place] [address]204 [phone] Prothrombin Time 21.2 seconds High 12.7-14.5 Inr 1.79 Normal 4 Partial Thromboplastin Time 47.3 seconds High 25.9-37.0 Laboratory test finding 06/27/2021 [place] [address] [phone] Fibrinogen 563 mg/dL High 268-480 D-Dimer Quant 694.39 ng/ml High <500 Procalcitonin <0.05 Normal 5 CBC With Differential 06/27/2021 Patient Service Ce nter [place], [place] [id number] [phone] White Blood Count 10.9 10 High 4.0-10.0 [...] 36.0-66.0 Lymph % 10.3 % Low 24.0-44.0 [place] % 15.9 % High 2.0-8.0 Eos % 0.0 % Normal 0.0-3.0 Baso % 0.2 % Normal 0.0-1.0 Immature Granulocyte % 0.5 % Normal 0-3.0 Nucleated Red Blood Cell % 0.0 % Normal 0-0 Neutrophils # 8.0 10 Normal 1.5-8.5 Lymph # 1.1 10 Low 1.5-5.0 [place] # 1.7 10 High 0.0-0.8 Eos # 0.0 10 Normal 0.0-0.5 Baso # 0.0 10 Normal 0.0-0.2 Laboratory test finding 06/27/2021 [place] [address] [phone] Free T4 2.11 ng/dL High 0.76-1.46 Laboratory test finding 06/27/2021 [facility] [place] [id number] [phone] Lactic Acid Sepsis Protocol 1.4 mmol/L Normal 0.4- 2.0 7 1 DIAGNOSIS CRITERIA MMB ng/ml Relative Index (RI) NON-AMI < or = 5 N/A REDMOND ZONE > 5 < or = 4 AMI > 5 > 4 2 Troponin I Reference Interva l for Siemens [place] LOCI: 99th Percentile= 0.00-0.045 ng/ml Risk Stratification: [...] Little GFR Left ESRD GFR <15 on NEONATAL DOCTOR 4 THERAPUTIC HUMAN INR VALUES INDICATIONS NORMAL [...] Y Procedures Date Code Description Status 07/06/2021 78838 Office/Outpatient Established Mo d MDM 30-39 Min Completed 05/15/2021 54890 Office/Outpatient Established Lo w MDM 20-29 Min Completed 04/05/2021 74961 Preventive Medicine Over 65 Year s Completed 04/05/2021 16470 Office/Outpatient Established Lo w MDM 20-29 Min Completed 03/23/2020 [id number] Colonoscopy Completed Medical Devices Description No Information [...]
--- OUTSIDE RECORDS SUMMARY | 2021-09-17 11:11 | CCD ---
Continuity of Care Document (CCD) Created on: 08/30/2021 DanielAntony singleton External Reference #: [id number] : 1945 Sex: Male Author Author Antony HERNANDEZ M.D. Organization Unknown Address [address] [place] [address] Phone [phone] Care Team Providers Care Board Operator Name Role Phone Miguel Guillermo MD AUTM [phone] [facility] - Dermatology AUTM [phone] [facility] Gastroenterology AUTM [phone] [facility] AUTM [phone] Problems Active Problems Provider Date Vitamin D [...] CPT Code Status Date Vaccine Lot # [id number] Given 01/02/2021 Moderna Sars-(Co vid-19) vaccine, mRNA, LNP-S, PF, 100 mcg/ 0.5 mL 20933 Given 12/03/2020 Moderna Sars-(Co vid-19) vaccine, mRNA, LNP-S, PF, 100 mcg/ 0.5 mL 30429 Given 08/17/2019 Influenza Virus Vaccine, Vic drivalent,multidose vial 90955 Refused 04/05/2021 Pneumococcal Vaccine 88195 Refused 12/07/2018 Prevnar 13 For Adults 80429 Refused 12/07/2018 Pneumococcal Vaccine 02127 Refused 12/12/2016 Pneumococcal Vaccine 36450 Refused 12/12/2016 Prevnar 13 Vital Signs Date Vital Result Comment 08/30/2021 1:43pm BP Systolic 117 mmHg BP Diastolic 69 mmHg Heart Rate 84 /min Body Temperature 97.2 F Respiratory Rate 18 /min Height 71.5 inches 5'11.50" Weight 207.12 lb O2 % BldC Oximetry 96 % Peak Expiratory Flow Rate 501 Estimated Peak Flow Rate [place] Body Weight 172 lb BMI (Body Mass [...] Flow Rate 503 Estimated Peak Flow Rate [place] Body Weight 172 lb BMI (Body Mass Index) 29.9 kg/m2 Results Test Acquired Date Facility Test Result H/L Range Note Laboratory test finding 06/27/2021 [place] [address] [phone] Mariah Covid Antigen POSITIVE High Negative Cardiac Marker Panel 06/27/2021 [place] [address] [phone] CPK Creatine Phosphokinase 23 U/L Low 39-30 8 CK-MB Value Mass < 1.0 NG/ML Normal <3.6 MB/CK Relative Index 4.35 High < Or =4 1 Troponin I 0.04 NG/ML Normal < 0.10 2 Liver Profile 06/27/2021 Patient Service [facility] [place] [address] [phone] Ast/Sgot 18 U/L Normal 7-37 Alt/SGPT 26 U/L Normal 12-78 Alkaline Phosphatase 69 U/L Normal 45-117 Bilirubin,Total 1.1 mg/dL High 0.2-1.0 Bilirubin,Direct 0.4 mg/dL High 0.0-0.2 Total Protein 7.7 GM/DL Normal 6.4-8.2 Albumin 3.6 GM/DL Normal 3.2-5.2 Albumin/Globulin Ratio 0.9 Normal Basic Metabolic Profile 06/27/2021 [place] [address] [phone] Glucose, Fasting 106 mg/dL High 70-100 Blood [...] Laboratory test finding 06/27/2021 Patient Service Center [place], [place] [address]609 [phone] LDH Lactate Dehydrogenase 222 U/L Normal 87-241 Magnesium Level 1.7 mg/dL Low 1.8-2.4 NT-Pro BNP 2210 pg/mL High <125 Thyroid Stimulating Hormone < 0.005 uIU/ML Low 0.358-3.740 Ferritin 159 NG/ML Normal 26-388 C Reactive Protein Quantitativ 12.90 mg/dL High 0.00-0.30 PT & Aptt 06/27/2021 Patient Service [facility] [place], [place] [address] [phone] Prothrombin Time 21.2 seconds High 12.7-14.5 Inr 1.79 Normal 4 Partial Thromboplastin Time 47.3 seconds High 25.9-37.0 Laboratory test finding 06/27/2021 [place] [address] [phone] Fibrinogen 563 mg/dL High 268-480 D-Dimer Quant 694.39 ng/ml High <500 Procalcitonin <0.05 Normal 5 CBC With Differential 06/27/2021 Patient Service [facility]ter [place], [place] [address]3854 [phone] White Blood Count 10.9 10 High 4.0-10.0 [...] 36.0-66.0 Lymph % 10.3 % Low 24.0-44.0 [place] % 15.9 % High 2.0-8.0 Eos % 0.0 % Normal 0.0-3.0 Baso % 0.2 % Normal 0.0-1.0 Immature Granulocyte % 0.5 % Normal 0-3.0 Nucleated Red Blood Cell % 0.0 % Normal 0-0 Neutrophils # 8.0 10 Normal 1.5-8.5 Lymph # 1.1 10 Low 1.5-5.0 [place] # 1.7 10 High 0.0-0.8 Eos # 0.0 10 Normal 0.0-0.5 Baso # 0.0 10 Normal 0.0-0.2 Laboratory test finding 06/27/2021 [place] [address] [phone] Free T4 2.11 ng/dL High 0.76-1.46 Laboratory test finding 06/27/2021 [facility] [place] [id number] [phone] Lactic Acid Sepsis Protocol 1.4 mmol/L Normal 0.4- 2.0 7 1 DIAGNOSIS CRITERIA MMB ng/ml Relative Index (RI) NON-AMI < or = 5 N/A REDMOND ZONE > 5 < or = 4 AMI > 5 > 4 2 Troponin I Reference Interva l for Siemens [place] LOCI: 99th Percentile= 0.00-0.045 ng/ml Risk Stratification: [...] Little GFR Left ESRD GFR <15 on YARD PILOT 4 THERAPUTIC HUMAN INR VALUES INDICATIONS NORMAL [...] Y Procedures Date Code Description Status 07/06/2021 13074 Office/Outpatient Established Mo d MDM 30-39 Min Completed 05/15/2021 29876 Office/Outpatient Established Lo w MDM 20-29 Min Completed 04/05/2021 32109 Preventive Medicine Over 65 Year s Completed 04/05/2021 34154 Office/Outpatient Established Lo w MDM 20-29 Min Completed 03/23/2020 [id number] Colonoscopy Completed Medical Devices Description No Information [...]
--- OUTSIDE RECORDS SUMMARY | 2021-09-17 11:11 | CCD | Continuity of Care Document ---
Author Author Antony HERNANDEZ M.D. Organization Unknown Address [address] [place] [address] Phone [phone] Care Team Providers Care Engine Tester Name Role Phone Miguel Guillermo MD AUTM [phone] [facility] - Dermatology AUTM [phone] [facility] Gastroenterology AUTM [phone] [facility] - [facility] AUTM [phone] Problems Active Problems Provider Date Vitamin D [...] SIG Qnty Indications Ordering Provide r Date Methimazole 5mg Tablets take 5mg one tab twice daily 60taSkyla Ortiz M.D. 021 Prednisone 10mg Tablets 4 po q d xs 3 d then 3 q d xs 3 d then 2 q d xs 3 d then 1 qd for 3 days then D/C Unknown 06/29/2021 Pantoprazole Sodium 40mg Tablets D R 1 cap by mouth every day for heartburn/acid reflux 90tabs Skyla Pate M.D. 06/15/2020 Metoprolol Succinate ER 50mg Tablets ER 24HR 1 by mouth bid Unknown Rosuvastatin Calcium 40mg Tablets take 1 tablet daily for cholesterol Unknown Xarelto 20mg Tablets 1 by mouth every day 30taSkyla Ortiz M.D. Amoxicillin 500mg Capsules 4 tabs prior to dental work Unknown Vitamin D3 Super Strength 50mcg (2000 Ut) Capsules 1 by mouth every day Unknown Fibercon 625mg Tablets one po qd Unknown Zyrtec Allergy 10mg Tablets 1 by mouth every day Unknown Verapamil HCL 120mg Tablets take one tablet by mouth at night 30taSkyla Ortiz M.D . Immunizations CPT Code Status Date Vaccine Lot # [id number] Given 01/02/2021 Moderna Sars-(Co vid-19) vaccine, mRNA, LNP-S, PF, 100 mcg/ 0.5 mL 72022 Given 12/03/2020 Moderna Sars-(Co vid-19) vaccine, mRNA, LNP-S, PF, 100 mcg/ 0.5 mL 28770 Given 08/17/2019 Influenza Virus Vaccine, Quadrivalent,age 3 and up,multidose vial 91087 Refused 04/05/2021 Pneumococcal Vaccine 73887 Refused 12/07/2018 Prevnar 13 For Adults 05336 Refused 12/07/2018 Pneumococcal Vaccine 44231 Refused 12/12/2016 Pneumococcal Vaccine 79485 Refused 12/12/2016 Prevnar 13 Vital Signs Date [...] Flow Rate 503 Estimated Peak Flow Rate [place] Body Weight 172 lb BMI (Body Mass [...] Flow Rate 503 Estimated Peak Flow Rate [place] Body Weight 172 lb BMI (Body Mass Index) 30.3 kg/m2 Results Test Acquired Date Facility Test Result H/L Range Note Laboratory test finding 06/27/2021 Patient [facility] [place] [id number] [phone] [facility] Covid Antigen POSITIVE High Negative Cardiac Marker Panel 06/27/2021 [place] [address] [phone] CPK Creatine Phosphokinase 23 U/L Low 39-30 8 CK-MB Value Mass < 1.0 NG/ML Normal <3.6 MB/CK Relative Index 4.35 High < Or =4 1 Troponin I 0.04 NG/ML Normal < 0.10 2 Liver Profile 06/27/2021 [place] [address] [phone] Ast/Sgot 18 U/L Normal 7-37 Alt/SGPT 26 U/L Normal 12-78 Alkaline Phosphatase 69 U/L Normal 45-117 Bilirubin,Total 1.1 mg/dL High 0.2-1.0 Bilirubin,Direct 0.4 mg/dL High 0.0-0.2 Total Protein 7.7 GM/DL Normal 6.4-8.2 Albumin 3.6 GM/DL Normal 3.2-5.2 Albumin/Globulin Ratio 0.9 Normal Basic Metabolic Profile 06/27/2021 [place] [address] [phone] Glucose, Fasting 106 mg/dL High 70-100 Blood [...] Laboratory test finding 06/27/2021 [place] [address] [phone] LDH Lactate Dehydrogenase 222 U/L Normal 87-241 Magnesium Level 1.7 mg/dL Low 1.8-2.4 NT-Pro BNP 2210 pg/mL High <125 Thyroid Stimulating Hormone < 0.005 uIU/ML Low 0.358-3.740 Ferritin 159 NG/ML Normal 26-388 C Reactive Protein Quantitativ 12.90 mg/dL High 0.00-0.30 PT & Aptt 06/27/2021 [place] [address] [phone] Prothrombin Time 21.2 seconds High 12.7-14.5 Inr 1.79 Normal 4 Partial Thromboplastin Time 47.3 seconds High 25.9-37.0 Laboratory test finding 06/27/2021 Patient Service [place], [place] 0[address]1969 [phone] Fibrinogen 563 mg/dL High 268-480 D-Dimer Quant 694.39 ng/ml High <500 Procalcitonin <0.05 Normal 5 CBC With Differential 06/27/2021 Patient Service Ce nter [place], [place] [id number] [phone] White Blood Count 10.9 10 High 4.0-10.0 [...] 36.0-66.0 Lymph % 10.3 % Low 24.0-44.0 Bay % 15.9 % High 2.0-8.0 Eos % 0.0 % Normal 0.0-3.0 Baso % 0.2 % Normal 0.0-1.0 Immature Granulocyte % 0.5 % Normal 0-3.0 Nucleated Red Blood Cell % 0.0 % Normal 0-0 Neutrophils # 8.0 10 Normal 1.5-8.5 Lymph # 1.1 10 Low 1.5-5.0 Bay # 1.7 10 High 0.0-0.8 Eos # 0.0 10 Normal 0.0-0.5 Baso # 0.0 10 Normal 0.0-0.2 Laboratory test finding 06/27/2021 [place] [address] [phone] Free T4 2.11 ng/dL High 0.76-1.46 Laboratory test finding 06/27/2021 [place] [address] [phone] Lactic Acid Sepsis Protocol 1.4 mmol/L Normal 0.4- 2.0 7 1 DIAGNOSIS CRITERIA MMB ng/ml Relative Index (RI) NON-AMI < or = 5 N/A REDMOND ZONE > 5 < or = 4 AMI > 5 > 4 2 Troponin I Reference Interva l for Siemens [place] LOCI: 99th Percentile= 0.00-0.045 ng/ml Risk Stratification: [...] Little GFR Left ESRD GFR <15 on PHARM SPEC 4 THERAPUTIC HUMAN INR VALUES INDICATIONS NORMAL [...] Y Procedures Date Code Description Status 07/06/2021 66694 Office/Outpatient Established Mo d MDM 30-39 Min Completed 05/15/2021 23296 Office/Outpatient Established Lo w MDM 20-29 Min Completed 04/05/2021 11743 Preventive Medicine Over 65 Year s Completed 04/05/2021 85093 Office/Outpatient Established Lo w MDM 20-29 Min Completed 03/23/2020 91187628 Colonoscopy Completed Medical Devices Description No Information [...] abnormal findings Assessments Date Code Description Provider 07/06/2021 U07.1 Covid-19 Skyla Hernandez M.D. 07/06/2021 [...] - Skyla Hernandez M.D. at Main Office 07/06/2021 - Skyla Hernandez M.D.* U07.1 Covid-19* Comments:* TCM performed, tele health because of COVID-. He looks and sounds great, is comfortable and doing well, Need procedure for a fib, but has to wait until the quarantine up and get re tested, he also has follow up scheduled for thyroid. Needs meds sent to [facility] in [place] as he quarantining at his home up there. * R94.6 Abnormal results of thyroid function studies Functional Status Functional Condition Comment Date Status Independent with all ADL's Activ e Glasses Active Independent with all IADL's Acti ve Mental Status Mental Condition Comment Date Status None Active Referrals Description No Information Available
--- OUTSIDE RECORDS SUMMARY | 2021-09-17 11:11 | CCD | Continuity of Care Document ---
Author Author Antony ASCENCIO MD Organization Unknown Address [address] [place] [address] Phone [phone] Care Team Providers Care Research Rn Spec Name Role Phone Morgan Schultz MD AUTM [phone] Problems Description No Information Available Social History [...] 24HR 1 by mouth every day Unknown 0 000 Methimazole 5mg Tablets 2 by mouth every day Unknown Immunizations CPT Code Status Date Vaccine Lot # [id number] Given 01/02/2021 Covid-19 Moderna vaccine, mRNA, LNP-S, PF,100mcg/0.5 mL 1st dose 63922 Given 12/03/2020 Covid-19 Moderna vaccine, mRNA, LNP-S, PF,100mcg/0.5 mL 1st dose [id number] Vital Signs Date Vital Result Comment 08/14/2021 12:06pm Body Temperature 95.7 F Weight 211.00 lb Heart Rate 82 /min BP Systolic 122 mmHg BP Diastolic 68 mmHg Height 72 inches 6'0" O2 % BldC Oximetry 95 % [place] Body Weight 178 lb BMI (Body Mass Index) 28.6 kg/m2 Results Test Acquired Date Facility Test Result H/L Range Note FT4&TSH Panel 08/30/2021 [facility] Thyroid Stimulating Hormone < 0.005 uIU/ML Low 0.358-3.740 Free T4 2.27 ng/dL High 0.76-1.46 Laboratory test finding 08/14/2021 [facility] Free T4 1.49 ng/dL High 0.70-1.48 1 Comprehensive Met Panel-FCMG 08/14/2021 [place] Sodium 142 [...] >60 7 CBC with Auto Diff-fcmg 08/14/2021 [facility] WBC 5.4 K/uL 4.1-11.0 8 RBC 4.56 [...] 09/04 Procedures Date Code Description Status 08/14/2021 55728 Office/Outpatient New High MDM 6 0-74 Minutes Completed Medical Devices Description No Information Available Encounters Type Date Location Provider Dx Diagnosis Office Visit 08/14/2021 11:45a [place] Sofy Ascencio MD E05.90 Thyrotoxicosis, unsp without [...] unsp without thy rotoxic crisis or storm [facility] Lab Plan of Treatment Future Appointment(s):* 09/19/2021 1:30 pm - Sofy Ascencio MD at [place] 08/14/2021 - Sofy Ascencio MD* E05.90 Thyrotoxicosis, [...]
--- OUTSIDE RECORDS SUMMARY | 2021-09-17 11:11 | CCD | Continuity of Care Document ---
Author Author Antony ASCENCIO MD Organization Unknown Address [address] [place] [address] Phone [phone] Care Team Providers Care Burial Needs Salesperson Name Role Phone Morgan Schultz MD AUTM [phone] Problems Description No Information Available Social History [...] CPT Code Status Date Vaccine Lot # [id number] Given 01/02/2021 Covid-19 Moderna vaccine, mRNA, LNP-S, PF,100mcg/0.5 mL 1st dose 31173 Given 12/03/2020 Covid-19 Moderna vaccine, mRNA, LNP-S, PF,100mcg/0.5 mL 1st dose [id number] Vital Signs Date Vital Result Comment 08/14/2021 12:06pm Body Temperature 95.7 F Weight 211.00 lb Heart Rate 82 /min BP Systolic 122 mmHg BP Diastolic 68 mmHg Height 72 inches 6'0" O2 % BldC Oximetry 95 % [place] Body Weight 178 lb BMI (Body Mass [...]
--- OUTSIDE RECORDS SUMMARY | 2021-09-17 11:11 | CCD | Continuity of Care Document ---
Author Author Antony HERNANDEZ M.D. Organization Unknown Address [address] [place] [address] Phone [phone] Care Team Providers Care Cartographic Technician Name Role Phone Miguel Guillermo MD AUTM [phone] [facility] - Dermatology AUTM [phone] [facility] Gastroenterology AUTM [phone] [facility] - [facility] AUTM [phone] Problems Active Problems Provider Date Vitamin D [...] CPT Code Status Date Vaccine Lot # [id number] Given 01/02/2021 Moderna Sars-(Co vid-19) vaccine, mRNA, LNP-S, PF, 100 mcg/ 0.5 mL 40327 Given 12/03/2020 Moderna Sars-(Co vid-19) vaccine, mRNA, LNP-S, PF, 100 mcg/ 0.5 mL 81946 Given 08/17/2019 Influenza Virus Vaccine, Quadrivalent,age 3 and up,multidose vial 76563 Refused 04/05/2021 Pneumococcal Vaccine 77671 Refused 12/07/2018 Prevnar 13 For Adults 57160 Refused 12/07/2018 Pneumococcal Vaccine 46232 Refused 12/12/2016 Pneumococcal Vaccine 24724 Refused 12/12/2016 Prevnar 13 Vital Signs Date [...] Flow Rate 503 Estimated Peak Flow Rate [place] Body Weight 172 lb BMI (Body Mass [...] Flow Rate 503 Estimated Peak Flow Rate [place] Body Weight 172 lb BMI (Body Mass Index) 30.3 kg/m2 Results Test Acquired Date Facility Test Result H/L Range Note Laboratory test finding 06/27/2021 Patient Service [place] 3069155 [phone] [facility] Covid Antigen POSITIVE High Negative Cardiac Marker Panel 06/27/2021 [place] [address] [phone] CPK Creatine Phosphokinase 23 U/L Low 39-30 8 CK-MB Value Mass < 1.0 NG/ML Normal <3.6 MB/CK Relative Index 4.35 High < Or =4 1 Troponin I 0.04 NG/ML Normal < 0.10 2 Liver Profile 06/27/2021 [place] [address] [phone] Ast/Sgot 18 U/L Normal 7-37 Alt/SGPT 26 U/L Normal 12-78 Alkaline Phosphatase 69 U/L Normal 45-117 Bilirubin,Total 1.1 mg/dL High 0.2-1.0 Bilirubin,Direct 0.4 mg/dL High 0.0-0.2 Total Protein 7.7 GM/DL Normal 6.4-8.2 Albumin 3.6 GM/DL Normal 3.2-5.2 Albumin/Globulin Ratio 0.9 Normal Basic Metabolic Profile 06/27/2021 [place] [address] [phone] Glucose, Fasting 106 mg/dL High 70-100 Blood [...] Laboratory test finding 06/27/2021 [place] [address] [phone] LDH Lactate Dehydrogenase 222 U/L Normal 87-241 Magnesium Level 1.7 mg/dL Low 1.8-2.4 NT-Pro BNP 2210 pg/mL High <125 Thyroid Stimulating Hormone < 0.005 uIU/ML Low 0.358-3.740 Ferritin 159 NG/ML Normal 26-388 C Reactive Protein Quantitativ 12.90 mg/dL High 0.00-0.30 PT & Aptt 06/27/2021 [place] [address] [phone] Prothrombin Time 21.2 seconds High 12.7-14.5 Inr 1.79 Normal 4 Partial Thromboplastin Time 47.3 seconds High 25.9-37.0 Laboratory test finding 06/27/2021 Patient Service [place], [place] 3039705 [phone] Fibrinogen 563 mg/dL High 268-480 D-Dimer Quant 694.39 ng/ml High <500 Procalcitonin <0.05 Normal 5 CBC With Differential 06/27/2021 Patient Service Ce [facility]ter [place], [place] [address]1947 [phone] White Blood Count 10.9 10 High 4.0-10.0 [...] 36.0-66.0 Lymph % 10.3 % Low 24.0-44.0 [place] % 15.9 % High 2.0-8.0 Eos % 0.0 % Normal 0.0-3.0 Baso % 0.2 % Normal 0.0-1.0 Immature Granulocyte % 0.5 % Normal 0-3.0 Nucleated Red Blood Cell % 0.0 % Normal 0-0 Neutrophils # 8.0 10 Normal 1.5-8.5 Lymph # 1.1 10 Low 1.5-5.0 [place] # 1.7 10 High 0.0-0.8 Eos # 0.0 10 Normal 0.0-0.5 Baso # 0.0 10 Normal 0.0-0.2 Laboratory test finding 06/27/2021 [place] [address] [phone] Free T4 2.11 ng/dL High 0.76-1.46 Laboratory test finding 06/27/2021 [place] [address] [phone] Lactic Acid Sepsis Protocol 1.4 mmol/L Normal 0.4- 2.0 7 1 DIAGNOSIS CRITERIA MMB ng/ml Relative Index (RI) NON-AMI < or = 5 N/A REDMOND ZONE > 5 < or = 4 AMI > 5 > 4 2 Troponin I Reference Interva l for Siemens [place] LOCI: 99th Percentile= 0.00-0.045 ng/ml Risk Stratification: [...] Little GFR Left ESRD GFR <15 on DIRECTOR DANCE 4 THERAPUTIC HUMAN INR VALUES INDICATIONS NORMAL [...] Y Procedures Date Code Description Status 05/15/2021 51183 Office/Outpatient Established Lo w MDM 20-29 Min Completed 04/05/2021 01999 Preventive Medicine Over 65 Year s Completed 04/05/2021 83889 Office/Outpatient Established Lo w MDM 20-29 Min Completed 03/23/2020 [id number] Colonoscopy Completed Medical Devices Description No Information [...] - Skyla Hernandez M.D. at Main Office Functional Status Functional Condition Comment Date Status Independent with all ADL's Activ e Glasses Active Independent with all IADL's Acti ve Mental Status Mental Condition Comment Date Status None Active Referrals Description No Information Available
--- OUTSIDE RECORDS SUMMARY | 2021-09-17 11:11 | CCD ---
Continuity of Care Document (CCD) Created on: 08/22/2021 Antony Daniel External Reference #: [id number] : 1945 Sex: Male Author Author Antony ASCENCIO MD Organization Unknown Address [address] [place] [address] Phone [phone] Care Team Providers Care Repeater Chief Name Role Phone Morgan Schultz MD AUTM [phone] Problems Description No Information Available Social History [...] CPT Code Status Date Vaccine Lot # [id number] Given 01/02/2021 Covid-19 Moderna vaccine, mRNA, LNP-S, PF,100mcg/0.5 mL 1st dose 20897 Given 12/03/2020 Covid-19 Moderna vaccine, mRNA, LNP-S, PF,100mcg/0.5 mL 1st dose [id number] Vital Signs Date Vital Result Comment 08/14/2021 12:06pm Body Temperature 95.7 F Weight 211.00 lb Heart Rate 82 /min BP Systolic 122 mmHg BP Diastolic 68 mmHg Height 72 inches 6'0" O2 % BldC Oximetry 95 % [place] Body Weight 178 lb BMI (Body Mass Index) 28.6 kg/m2 Results Test Acquired Date Facility Test Result H/L Range Note Laboratory test finding 08/14/2021 [facility] T4 1.49 ng/dL High 0.70-1.48 1 Comprehensive Met Panel-FCMG 08/14/2021 [facility] Sodium 142 mmol/L 135-146 2 Potassium 4.1 [...] Reference Range 09/04 12 Updated Reference Range 11/2 019 13 Updated Reference Range 09/04 14 Updated [...] 09/04 Procedures Date Code Description Status 08/14/2021 24340 Office/Outpatient New High MDM 6 0-74 Minutes Completed Medical Devices Description No Information Available Encounters Type Date Location Provider Dx Diagnosis Office Visit 08/14/2021 11:45a [place] Sofy Ascencio MD E05.90 Thyrotoxicosis, unsp without [...] unsp without thy rotoxic crisis or storm [facility] Lab Plan of Treatment 08/14/2021 - [...]
--- OUTSIDE RECORDS SUMMARY | 2021-09-17 11:12 | CCD | Summary of Care ---
Author Author [facility] Organization [facility] Address Unknown Phone Unavailable Care Team Providers Care Commercial Reporter Name Role Phone Skyla Cole MD PCP Encounter Details Care Team Description Date Type Department 06/26/2021 [facility] Clinical Encounter Pathology at [address] [address] Allergies No Known Active Allergiesdocumented as of this encounter (statuses as of 06/28/2021) Medications End Date Status Medication Sig Dispensed Refills Start Date Active Cholecalciferol (VITAMIN Take 1,000 0 D) 1000 units tablet Units by mouth daily Active amoxicillin (AMOXIL) 500 Take 500 mg 0 MG capsule by mouth as needed 4 tablets by mouth 1 hour prior to procedure Active Rosuvastatin Calcium 40 Take 1 tablet 90 tablet 3 MG Oral Tablet by mouth 1 (CRESTOR)Indications: daily Mixed hyperlipidemia Active Rivaroxaban 20 MG Oral Take 1 tablet 30 tablet 11 0 Tablet by mouth 1 (XARELTO)Indications: PAF daily (paroxysmal atrial fibrillation) Active Verapamil HCl 120 MG Oral Take 120 mg 0 Tablet (CALAN) by mouth daily 06/25/2022 Active Metoprolol Succinate ER Take 1 tablet 90 tablet 3 100 MG Oral Tablet by mouth 1 Extended Release 24 Hour daily (TOPROL-XL)Indications: Shortness of breath, PAF (paroxysmal atrial fibrillation) Active Ramipril 10 MG Oral Take 1 90 capsule 3 Capsule (ALTACE) capsule by 1 mouth daily 06/26/2022 Active methIMAzole 5 MG Oral Take 1 tablet 60 tablet 3 Tablet by mouth Two 1 (Tapazole)Indications: Times Daily Hyperthyroidism documented as of this encounter (statuses as of 06/28/2021) Active Problems Problem Noted Date HOCM (hypertrophic obstructive cardiomyopathy) 03/10 NSTEMI (non-ST elevated myocardial infarction) 03/10 PAF (paroxysmal atrial fibrillation) 03/10/2019 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 Aortic valve Valvular heart disease Overview: Formatting of this note might be differ ent from the original. Moderate mitral regurgitation Hypertension Hyperlipidemia documented as of this encounter (statuses as of 06/28/2021) Immunizations Name Administration Dates Next Due documented as of this encounter Social History Date Tobacco Use Types Packs/Day Years Used Quit: 2004 Former Smoker Cigarettes 0.5 25 Smokeless Tobacco: Never Used Comments Alcohol Use Standard Drinks/Week occasionally Yes 0 (1 standard drink = 0.6 o z pure alcohol) Physical Activity Answer Date Recorded On average, how many days per week do you engage 0 days 09/02/2019 in moderate to strenuous exercise (like walking fast, running, jogging, dancing, swimmi ng, biking, or other activities that cause a light or heavy sweat)? On average, how many minutes do you engage in Not as ked exercise at this level? Sex Assigned at Date Recorded Not on file Date Recorded COVID-19 Exposure Response 06/26/2021 1:01 PM EDT In the last month, have you been in contact with No / Unsure someone who was confirmed or suspected to have Coronavirus / COVID-19? documented as of this encounter Last Filed Vital Signs Not on filedocumented in this encounter Plan of Treatment Care Team Description Date Type Specialty 10/02/2021 Clinical Cardiology Support Morgan Schultz MD [address] [place] [address] [place] [address] [phone] 11/06/2021 Office Visit Cardiology Health Maintenance Due Date Last Done Comments Hepatitis C Screening (B. 1945 7028-1845) MMR Vaccines (1 of 1 - 1946 Standard series) Varicella Vaccines (1 of 1946 2 - 2-dose childhood series) DTaP,Tdap,and Td Vaccines 1953 (1 - Tdap) Colon Cancer Screening 10 1996 yrs Zoster Vaccines (1 of 2) 1996 Pneumococcal Vaccine: 65+ 2011 Years (1 of 1 - PPSV23) Influenza Vaccine 08/03/2021 08/17/2018, 08/07/2017 COVID-19 Vaccine Completed 01/02/2021, 12/03/2020 HIB Vaccines Aged Out No longer eligible based on patient's age to complete this topic Hepatitis A Vaccines Aged Out No longer eligibl e based on patient's age to complete this topic Hepatitis B Vaccines Aged Out No longer eligibl e based on patient's age to complete this topic IPV Vaccines Aged Out No longer eligible based on patient's age to complete this topic Pneumococcal Vaccine: Aged Out No longer eligib le based on patient's age to Pediatrics (0 to 5 Years) complete this topic and At-Risk Patients (6 to 64 Years) documented as of this encounter Implants Device Identifier Shelf Expiration Date Model / Serial / L ot Implanted Type Area Manufactur er [id number] / [id number] / Defibrilator-03/15/2019 [facility]at [facility] Implanted: 03/15/2019 (Quantity not or [place] [employer], on file) [employer] documented as of this encounter Results Not on filedocumented in this encounter
--- OUTSIDE RECORDS SUMMARY | 2021-09-17 11:12 | CCD | Continuity of Care Document ---
Author Author Antony HERNANDEZ M.D. Organization Unknown Address [address] [place] [address] Phone [phone] Care Team Providers Care Cook Fast [employer] Name Role Phone Miguel Guillermo MD AUTM [phone] [facility] - Dermatology AUTM [phone] [facility] Gastroenterology AUTM [phone] [facility] - [facility] AUTM [phone] Problems Active Problems Provider Date Vitamin D [...] CPT Code Status Date Vaccine Lot # [id number] Given 01/02/2021 Moderna Sars-(Co vid-19) vaccine, mRNA, LNP-S, PF, 100 mcg/ 0.5 mL [id number] Given 12/03/2020 Moderna Sars-(Co vid-19) vaccine, mRNA, LNP-S, PF, 100 mcg/ 0.5 mL [id number] Given 08/17/2019 Influenza Virus Vaccine, Quadrivalent,age 3 and up,multidose vial [id number] Refused 04/05/2021 Pneumococcal Vaccine 59682 Refused 12/07/2018 Prevnar 13 For Adults 35304 Refused 12/07/2018 Pneumococcal Vaccine 78371 Refused 12/12/2016 Pneumococcal Vaccine 46128 Refused 12/12/2016 Prevnar 13 Vital Signs Date [...] Flow Rate 503 Estimated Peak Flow Rate [place] Body Weight 172 lb BMI (Body Mass [...] Flow Rate 503 Estimated Peak Flow Rate [place] Body Weight 172 lb BMI (Body Mass Index) 30.3 kg/m2 Results Test Acquired Date Facility Test Result H/L Range Note Laboratory test finding 06/27/2021 [place] [address] [phone] Mariah Covid Antigen POSITIVE High Negative Cardiac Marker Panel 06/27/2021 [place] [address] [phone] CPK Creatine Phosphokinase 23 U/L Low 39-30 8 CK-MB Value Mass < 1.0 NG/ML Normal <3.6 MB/CK Relative Index 4.35 High < Or =4 1 Troponin I 0.04 NG/ML Normal < 0.10 2 Liver Profile 06/27/2021 [place] [address] [phone] Ast/Sgot 18 U/L Normal 7-37 Alt/SGPT 26 U/L Normal 12-78 Alkaline Phosphatase 69 U/L Normal 45-117 Bilirubin,Total 1.1 mg/dL High 0.2-1.0 Bilirubin,Direct 0.4 mg/dL High 0.0-0.2 Total Protein 7.7 GM/DL Normal 6.4-8.2 Albumin 3.6 GM/DL Normal 3.2-5.2 Albumin/Globulin Ratio 0.9 Normal Basic Metabolic Profile 06/27/2021 [place] [address] [phone] Glucose, Fasting 106 mg/dL High 70-100 Blood [...] Laboratory test finding 06/27/2021 [place] [address] [phone] LDH Lactate Dehydrogenase 222 U/L Normal 87-241 Magnesium Level 1.7 mg/dL Low 1.8-2.4 NT-Pro BNP 2210 pg/mL High <125 Thyroid Stimulating Hormone < 0.005 uIU/ML Low 0.358-3.740 Ferritin 159 NG/ML Normal 26-388 C Reactive Protein Quantitativ 12.90 mg/dL High 0.00-0.30 PT & Aptt 06/27/2021 [place] [address] [phone] Prothrombin Time 21.2 seconds High 12.7-14.5 Inr 1.79 Normal 4 Partial Thromboplastin Time 47.3 seconds High 25.9-37.0 Laboratory test finding 06/27/2021 [place] [address] [phone] Fibrinogen 563 mg/dL High 268-480 D-Dimer Quant 694.39 ng/ml High <500 Procalcitonin <0.05 Normal 5 CBC With Differential 06/27/2021 [place] [address] [phone] White Blood Count 10.9 10 High 4.0-10.0 [...] 36.0-66.0 Lymph % 10.3 % Low 24.0-44.0 [place] % 15.9 % High 2.0-8.0 Eos % 0.0 % Normal 0.0-3.0 Baso % 0.2 % Normal 0.0-1.0 Immature Granulocyte % 0.5 % Normal 0-3.0 Nucleated Red Blood Cell % 0.0 % Normal 0-0 Neutrophils # 8.0 10 Normal 1.5-8.5 Lymph # 1.1 10 Low 1.5-5.0 [place] # 1.7 10 High 0.0-0.8 Eos # 0.0 10 Normal 0.0-0.5 Baso # 0.0 10 Normal 0.0-0.2 Laboratory test finding 06/27/2021 [place] [address] [phone] Free T4 2.11 ng/dL High 0.76-1.46 Laboratory test finding 06/27/2021 Patient [facility] [place] [id number] [phone] Lactic Acid Sepsis Protocol 1.4 mmol/L Normal 0.4- 2.0 7 1 DIAGNOSIS CRITERIA MMB ng/ml Relative Index (RI) NON-AMI < or = 5 N/A [place] ZONE > 5 < or = 4 AMI > 5 > 4 2 Troponin I Reference Interva l for Siemens [email or web address] LOCI: 99th Percentile= 0.00-0.045 ng/ml Risk Stratification: [...] Little GFR Left ESRD GFR <15 on AQUA AMMONIA OPERATOR 4 THERAPUTIC HUMAN INR VALUES INDICATIONS NORMAL [...] Y Procedures Date Code Description Status 05/15/2021 47225 Office/Outpatient Established Lo w MDM 20-29 Min Completed 04/05/2021 50396 Preventive Medicine Over 65 Year s Completed 04/05/2021 45766 Office/Outpatient Established Lo w MDM 20-29 Min Completed 03/23/2020 [id number] Colonoscopy Completed Medical Devices Description No Information [...]
--- OUTSIDE RECORDS SUMMARY | 2021-09-17 11:12 | CCD | Continuity of Care Document ---
Author Author Antony HERNANDEZ M.D. Organization Unknown Address [address] [place] [address] Phone [phone] Care Team Providers Care Library Assistant Name Role Phone Miguel Guillermo MD AUTM [phone] [facility] - Dermatology AUTM [phone] [facility] Gastroenterology AUTM [phone] [facility] - [facility] AUTM [phone] Problems Active Problems Provider Date Vitamin D [...] CPT Code Status Date Vaccine Lot # [id number] Given 01/02/2021 Moderna Sars-(Co vid-19) vaccine, mRNA, LNP-S, PF, 100 mcg/ 0.5 mL [id number] Given 12/03/2020 Moderna Sars-(Co vid-19) vaccine, mRNA, LNP-S, PF, 100 mcg/ 0.5 mL 88171 Given 08/17/2019 Influenza Virus Vaccine, Quadrivalent,age 3 and up,multidose vial 87213 Refused 04/05/2021 Pneumococcal Vaccine 29643 Refused 12/07/2018 Prevnar 13 For Adults 55840 Refused 12/07/2018 Pneumococcal Vaccine 95042 Refused 12/12/2016 Pneumococcal Vaccine 64409 Refused 12/12/2016 Prevnar 13 Vital Signs Date [...] Flow Rate 503 Estimated Peak Flow Rate [place] Body Weight 172 lb BMI (Body Mass [...] Flow Rate 503 Estimated Peak Flow Rate [place] Body Weight 172 lb BMI (Body Mass Index) 30.3 kg/m2 Results Test Acquired Date Facility Test Result H/L Range Note Laboratory test finding 06/27/2021 [place] [address] [phone] Mariah Covid Antigen POSITIVE High Negative Cardiac Marker Panel 06/27/2021 [place] [address] [phone] CPK Creatine Phosphokinase 23 U/L Low 39-30 8 CK-MB Value Mass < 1.0 NG/ML Normal <3.6 MB/CK Relative Index 4.35 High < Or =4 1 Troponin I 0.04 NG/ML Normal < 0.10 2 Liver Profile 06/27/2021 [place] [address] [phone] Ast/Sgot 18 U/L Normal 7-37 Alt/SGPT 26 U/L Normal 12-78 Alkaline Phosphatase 69 U/L Normal 45-117 Bilirubin,Total 1.1 mg/dL High 0.2-1.0 Bilirubin,Direct 0.4 mg/dL High 0.0-0.2 Total Protein 7.7 GM/DL Normal 6.4-8.2 Albumin 3.6 GM/DL Normal 3.2-5.2 Albumin/Globulin Ratio 0.9 Normal Basic Metabolic Profile 06/27/2021 [place] [address] [phone] Glucose, Fasting 106 mg/dL High 70-100 Blood [...] Laboratory test finding 06/27/2021 [place] [address] [phone] LDH Lactate Dehydrogenase 222 U/L Normal 87-241 Magnesium Level 1.7 mg/dL Low 1.8-2.4 NT-Pro BNP 2210 pg/mL High <125 Thyroid Stimulating Hormone < 0.005 uIU/ML Low 0.358-3.740 Ferritin 159 NG/ML Normal 26-388 C Reactive Protein Quantitativ 12.90 mg/dL High 0.00-0.30 PT & Aptt 06/27/2021 [place] [address] [phone] Prothrombin Time 21.2 seconds High 12.7-14.5 Inr 1.79 Normal 4 Partial Thromboplastin Time 47.3 seconds High 25.9-37.0 Laboratory test finding 06/27/2021 [place] [address] [phone] Fibrinogen 563 mg/dL High 268-480 D-Dimer Quant 694.39 ng/ml High <500 Procalcitonin <0.05 Normal 5 CBC With Differential 06/27/2021 [place] [address] [phone] White Blood Count 10.9 10 High 4.0-10.0 [...] 36.0-66.0 Lymph % 10.3 % Low 24.0-44.0 [place] % 15.9 % High 2.0-8.0 Eos % 0.0 % Normal 0.0-3.0 Baso % 0.2 % Normal 0.0-1.0 Immature Granulocyte % 0.5 % Normal 0-3.0 Nucleated Red Blood Cell % 0.0 % Normal 0-0 Neutrophils # 8.0 10 Normal 1.5-8.5 Lymph # 1.1 10 Low 1.5-5.0 [place] # 1.7 10 High 0.0-0.8 Eos # 0.0 10 Normal 0.0-0.5 Baso # 0.0 10 Normal 0.0-0.2 Laboratory test finding 06/27/2021 [place] [address] [phone] Free T4 2.11 ng/dL High 0.76-1.46 Laboratory test finding 06/27/2021 [facility] [place] [id number] [phone] Lactic Acid Sepsis Protocol 1.4 mmol/L Normal 0.4- 2.0 7 1 DIAGNOSIS CRITERIA MMB ng/ml Relative Index (RI) NON-AMI < or = 5 N/A [place] ZONE > 5 < or = 4 AMI > 5 > 4 2 Troponin I Reference Interva l for Siemens [place] LOCI: 99th Percentile= 0.00-0.045 ng/ml Risk Stratification: [...] Little GFR Left ESRD GFR <15 on OCC THERAPIST 4 THERAPUTIC HUMAN INR VALUES INDICATIONS NORMAL [...] Y Procedures Date Code Description Status 05/15/2021 37103 Office/Outpatient Established Lo w MDM 20-29 Min Completed 04/05/2021 41875 Preventive Medicine Over 65 Year s Completed 04/05/2021 67095 Office/Outpatient Established Lo w MDM 20-29 Min Completed 03/23/2020 [id number] Colonoscopy Completed Medical Devices Description No Information [...]
--- OUTSIDE RECORDS SUMMARY | 2021-09-17 11:12 | CCD | Summary of Care ---
Author Author [facility] Organization [facility] Address Unknown Phone Unavailable Care Team Providers Care Textile Knitter Name Role Phone Skyla Cole MD PCP Reason for Referral * Hospital - Outpatient (Routine) Referred By Contact Referred To Contact Status Reason Specialty Diagnoses / Procedures Bettie Goodman NP [address] [place] [address] Authorized Cardiology Diagnoses PAF (paroxysmal atrial fibrillation) P rocedures Cardioversion external Electronically signed by Bettie Goodman NP at Reason for Visit * Reason Comments Follow-up No new hospital stays or re cent surgeries. Pt. states he is feeling ok, he states he has been having some kidney s tones and would like a new Urologist, his current one on file has retired.. Pt. denies chest pain, palpitations, dizziness, edema. Shortness of Breath Pt. states he gets sob upon exertion. He states since yesterday he has had some issues of belching. Encounter Details Care Team Description Date Type Department Bettie Goodman NP [address] [place] [address] PAF (paroxysmal atrial fibrillation) (Pr imary Dx); Shortness of breath; Hypertension, unspecified type 06/26/2021 Office Visit [facility] [address] [place] [address] Allergies No Known Active Allergiesdocumented as of this encounter (statuses as of 06/26/2021) Medications End Date Status Medication Sig Dispensed [...] Capsule (ALTACE) capsule by 1 mouth daily 06/26/2021 Discontinued (Medication Rec oncilation) Cetirizine HCl 10 MG Oral Take 10 mg by 0 Tablet (ZYRTEC) mouth daily 06/26/2021 Discontinued (Dose adjustmen t) Metoprolol Succinate ER TAKE ONE 180 tablet 3 50 MG Oral Tablet TABLET BY 1 Extended Release 24 Hour MOUTH TWICE A (TOPROL-XL)Indications: DAY PAF (paroxysmal atrial fibrillation) 06/26/2021 Discontinued Ramipril 10 MG Oral TAKE ONE 30 capsule 11 Capsule (ALTACE) CAPSULE BY 1 MOUTH EVERY DAY documented as of this encounter (statuses as of 06/26/2021) Active Problems Problem Noted Date HOCM (hypertrophic [...] as of this encounter (statuses as of 06/26/2021) Social History Date Tobacco Use Types Packs/Day [...] of this encounter Last Filed Vital Signs Reading Time Taken Comments Vital Sign 130/80 06/26/2021 1:41 PM EDT Blood Pressure 94 06/26/2021 1:07 PM EDT Pulse - - Temperature 18 06/26/2021 1:07 PM EDT Respiratory Rate - - Oxygen Saturation - - Inhaled Oxygen Concentration 98.9 kg (218 lb) 06/26/2021 1:07 PM EDT Weight 182.9 cm (6' 0.01") 06/26/2021 1:07 PM EDT Height 29.56 06/26/2021 1:07 PM EDT Body Mass Index documented in this encounter Patient Instructions * Patient Instructions* Bettie Goodman NP - 06/26/2021 1:30 PM EDT Increase metoprolol to 100 mg daily (two of the 50 mg pills a day, can take 2 at the same time) Blood work today Cardioversion Follow up in 2 weeks after cardioversion documented in this encounter Progress Notes * Bettie Goodman NP - 06/26/2021 1:30 PM EDT Images from the original note were not included. PROGRESS NOTE CHIEF COMPLAINT: Chief Complaint Patient presents with Follow-up No new hospital stays or recent surgeries. Pt. states he is feeling ok, he sta lara he has been having some kidney stones and would like a new Urologist, his cu rrent one on file has retired.. Pt. denies chest pain, palpitations, dizziness, edema. Shortness of Breath Pt. states he gets sob upon exertion. He states since yesterday he has had kg e issues of belching. HISTORY: Mr. Daniel is a 75 y.o. male, patient of Dr. Morgan Schultz with past [facility] history significant for hypertrophic cardiomyopathy, paroxysmal atrial fibri llation, hyperlipidemia and V. tach status post [facility] AICD. Patient underw ent cardiac cath in March 2019 which showed no evidence of CAD. Patient presents for acute visit as we received alert from Lexi that patient h as been in atrial fibrillation since 06/21/2021. After speaking to the patient on the phone, he reported some shortness of breath. He was advised to increase Met oprolol XL to 75 mg daily and obtain blood work to rule out electrolyte and thyr oid abnormalities. Today patient reports he did not increase his dose of metoprolol, as he reviewed his records and realized he were supposed to take metoprolol 50 mg twice a day, but he has been only taking 50 mg daily since the medication has been prescribed to him. Unfortunately he was not able to obtain blood work prior to coming to our office. In March 2021 patient has been seen at the [facility] hypertrophic cardiomyopath y clinic and was started on low-dose verapamil. There were also discussion of o ptions including clinical trials with mavacamten, or septal reduction therapy. P atient states that he sometimes misses doses of the verapimil as most of his med ications are prescribed to take in the morning. Patient states he trying stay hydrated and denies any increased caffeine intake or mhlg-omg-bwertdp medication. Patient was at [facility] when he was infor med that he is back in atrial fibrillation. He believes he might of overexerted himself with chores, which subsequently caused return of A-fib. He had no recur rence of the a-fib in the past 3 years. Patient was previously on amiodarone, bu t it was discontinued ue to reports of shortness of breath. Patient subsequently underwent PFT, which was unremarkable. Patient's notes erratic breathing at night at times as well as snoring. Zeinab robles has never been tested for sleep apnea in the past, though it has been broug ht up during his recent visits during the pandemic. Today patient reports shortness of breath, but on the further evaluation, he adm its that it has been present for several years. He is unsure if he got worse wi th return atrial fibrillation. Patient denies any chest pain/pressures, neck, jaw or arm pain, PND/orthopnea, p alpitations, dizziness/lightheadedness, near syncope or syncope, or lower extrem ity edema. ROS: See above in HPI. All other systems have been reviewed and are negative. PMH / PROBLEM LIST: Past Medical History: Diagnosis Date Arrhythmia Atrial Fibrillation Cardiomyopathy 08/11/2012 Hypertrophic - [facility] General Endocarditis 07/03/2009 Aortic valve Erectile dysfunction Gout 05/2021 left toe History of COVID-19 09/2020 Hyperlipidemia Hypertension Malaria 1968 Measles 1957 Mumps 1955 Valvular heart disease Moderate mitral regurgitation Valvular heart disease Trace AI Valvular heart disease Trace TR Varicose veins of both lower extremities Patient Active Problem List Diagnosis HOCM (hypertrophic obstructive cardiomyopathy) NSTEMI (non-ST elevated myocardial infarction) PAF (paroxysmal atrial fibrillation) Valvular heart disease Hypertension Hyperlipidemia Endocarditis SURGICAL HISTORY: Past Surgical History: Procedure Laterality Date APPENDECTOMY CARDIAC CATHETERIZATION 03/12/2019 CARDIAC DEFIBRILLATOR PLACEMENT 03/15/2019 Dr. Meliton RANGEL CARDIOVERSION 11/27/2015 CARDIOVERSION 03/24/2018 Successful cardioversion CARDIOVERSION 09/12/2017 CATARACT EXTRACTION Left 07/2017 CATARACT EXTRACTION Right 2017 Dr. Hicks - Harvey TONSILLECTOMY ALLERGIES Patient has no known allergies. MEDICATIONS: Current Outpatient Medications: amoxicillin (AMOXIL) 500 MG capsule, Take 500 mg by mouth as needed 4 ta blets by mouth 1 hour prior to procedure, Disp: , Rfl: Cholecalciferol (VITAMIN D) 1000 units tablet, Take 1,000 Units by mouth daily, Disp: , Rfl: Ramipril 10 MG Oral Capsule (ALTACE), Take 1 capsule by mouth daily, Dis p: 90 capsule, Rfl: 3 Rivaroxaban 20 MG Oral Tablet (XARELTO), Take 1 tablet by mouth daily, D isp: 30 tablet, Rfl: 11 Rosuvastatin Calcium 40 MG Oral Tablet (CRESTOR), Take 1 tablet by mouth daily, Disp: 90 tablet, Rfl: 3 Verapamil HCl 120 MG Oral Tablet (CALAN), Take 120 mg by mouth daily, Di sp: , Rfl: Metoprolol Succinate ER 100 MG Oral Tablet Extended Release 24 Hour (TOP ROL-XL), Take 1 tablet by mouth daily, Disp: 90 tablet, Rfl: 3 FAMILY HISTORY: Family History Problem Relation Age of Onset Stroke Father Heart disease Father SOCIAL HISTORY: Social History Tobacco Use Smoking status: Former Smoker Packs/day: 0.50 Years: 25.00 Pack years: 12.50 Types: Cigarettes Quit date: 2004 Years since quittin.6 Smokeless tobacco: Never Used Substance Use Topics Alcohol use: Yes Comment: occasionally Drug use: Not on file TOBACCO USE: Social History Tobacco Use Smoking Status Former Smoker Packs/day: 0.50 Years: 25.00 Pack years: 12.50 Types: Cigarettes Quit date: 2004 Years since quittin.6 Smokeless Tobacco Never Used PHYSICAL EXAM: Vitals: 06/26/21 1307 06/26/21 1341 BP: 132/82 130/80 BP Location: Right arm Right arm Patient Position: Sitting Sitting Cuff size: Regular Regular Pulse: 94 Resp: 18 Weight: 98.9 kg (218 lb) Height: 1.829 m (6' 0.01") Wt Readings from Last 3 Encounters: 06/26/21 98.9 kg (218 lb) 12/04/20 99.3 kg (219 lb) 03/01/20 97.5 kg (215 lb) BMI: Body mass index is 29.56 kg/m. GEN: Alert and Oriented in no acute distress HEENT: Normocephalic, atraumatic. PERRLA. HEART: S1, S2, irregularly irregular rhythm, no murmurs, rubs, or gallops LUNGS: CTA bilaterally, no wheezing, rales, or rhonchi ABDOMEN: Soft, non tender, non distended with normal bowel sounds EXT: No edema bilaterally. Palpable distal pulses NEUROLOGIC: Nonfocal; awake, alert and oriented SKIN: warm, dry and intact EKG: A-fib at 94 bpm, Non-specific IVCD, possible LVE, nonspecific ST/T wave abn ormality in anterolateral leads. Compared to EKG from 12/04/2020 A. fib has rep laced NSR ECHO 03/01/2020: 1. There is mild to moderate concentric left ventricular hypertrophy. 2. Estimated LVEF 60%. 3. Moderate NATANAEL with peak LVOT gradient of (LVOT maxPG). 4. There is trace to mild aortic incompetence. 5. Mild mitral regurgitation is present. 6. There is no pericardial effusion. 6. AICD wire is noted. Conclusions completed STRESS TESTING 02/12/2018: * Normal hemodynamic and chronotropic response to Lexiscan (regadenoson). * Overall the stress portion is non-diagnostic due to the protocol utilized. * Moderate fixed perfusion defect involving the inferior wall consistent with di aphragmatic attenuation artifact. There is no evidence for myocardial ischemia o r infarction on this study. * Gated display reveals mild global hypo kinesis. * Left ventricular ejection fraction is mildly reduced at 43% CARDIAC CATH 03/12/2019: Coronary findings: Dominance: Left RCA artery: Mid RCA lesion, 5% stenosis LVEDP equals 13 mmHg There is no significant gradient across the aortic valve. REMOTE DEVICE CHECK 06/19/2021: Scheduled remote defibrillator check received through [employer]. Battery and lead measurements appropriate with approximately 6 years 4 months to INA. Charge time 8.8 seconds. RV auto threshold testing stable. No VT/VF noted. 1 NSVT episode lasting 6sec 7 mode switch episodes detected with a maximum duration of 28sec . LABS 03/06/2020: AST 37 ALT 34 TSH 1.99 Free T4 1.42 ASSESSMENT: Encounter Diagnoses Name Primary? Paroxysmal atrial fibrillation Yes Shortness of breath PLAN: 1. Paroxysmal atrial fibrillation. Patient with shortness of breath, althoug h might have some chronic element to it. He is rate controlled seem to be well controlled high rate episodes on device check. I will increase his metoprolol 1 00 mg daily and set him up for cardioversion. Patient already has a slip for bl ood work for BMP, CBC, and thyroid studies. His echocardiogram from 2019 showed mild mitral regurgitation an normal LVEF. Patient reports snoring at nighttime, but has never been tested for sleep apnea. Can consider home sleep study. Adv ised patient after he left to call our office should he consider DANILO testing. 2. Hypertrophic cardiomyopathy with ventricular tachycardia. He has not had fu rther episodes of lightheadedness. He underwent cardiac catheterization and now has AICD implanted. He is now followed by hypertrophic cardiomyopathy clinic [facility] was seen by Dr. Rutherford, who started patient on low dose v erapamil. 3. 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 He will require a ntibiotic prophylaxis prior to nonsterile procedures. 4. Hypertension. Blood pressures well controlled. 30 total minutes were spent reviewing previous tests/result, obtaining and/or re viewing separately obtained history, performing a medically appropriate examinat ion, counseling and educating the patient/family/caregiver, for medications, doc umenting clinical information, and independently interpreted results and x-ray r esults to the patient/family/caregiver. A care plan and follow-up was discussed with the patient and their family. The p atient was given ample opportunity to ask questions which were all addressed and agrees with the above listed plan. They have been educated to contact our office at [phone] with any questions, concerns or development of worsening sympt oms or change in condition. We discussed face to face to call me should they hav e symptoms of angina, increased shortness of breath, increased lower extremity e yoana, or severe palpitations with syncope or near-syncope. Pt expressed understa nding. Note dictated using [employer] dictation software and some errors may occur in trans cription. Every effort has been made to ensure accuracy of wire brush maker, but e rrors may go unnoticed/uncorrected. Antony will return for follow up in 2 weeks after cardioversion. Bettie Goodman, MSN, LOGISTICS MANAGEMENT SPECIALIST, [facility] [phone] documented in this encounter Plan of Treatment Care Team Description Date Type Specialty 10/02/2021 Clinical Cardiology Support Morgan Schultz MD [address] [place] [address] [place] [address] 11/06/2021 Office Visit Cardiology Order Schedule Name Type Priority Associated Diag noses Expected: 06/26/2021, Expires: Cardioversion external Cardiac Routine PAF (pa roxysmal atrial Services fibrillation) Health Maintenance Due Date Last Done Comments Hepatitis C Screening (B. 1945 [id number]) MMR Vaccines (1 of 1 - 1946 Standard series) Varicella Vaccines (1 of 1946 2 - 2-dose childhood series) DTaP,Tdap,and Td Vaccines 1953 (1 - Tdap) Colon Cancer Screening 10 1996 yrs Zoster Vaccines (1 of 2) 1996 Pneumococcal Vaccine: 65+ 2011 Years (1 of 1 - PPSV23) Influenza Vaccine 08/03/2021 08/17/2018, 08/07/2017 HIB Vaccines Aged Out No longer eligible [...] Implanted Type Area Manufactur er [id number] / [id number] / Defibrilator-03/15/2019 Defibrilat [place] [employer] Implanted: 03/15/2019 (Quantity not or [employer], on file) [employer] documented as of this encounter Procedures Comments Procedure Name Priority Date/Time Associated Diag nosis EKG 12-LEAD - CMAXX 06/26/2021 PAF (paroxysmal a trial REPORT 1:16 PM EDT fibrillation) EKG 12-LEAD - CMAXX 06/26/2021 PAF (paroxysmal a trial REPORT 1:16 PM EDT fibrillation) EKG 12-LEAD Routine 06/26/2021 Shortness of br eath 1:16 PM EDT PAF (paroxysmal atrial fibrillation) documented in this encounter Results * EKG 12-LEAD - CMAXX REPORT (06/26/2021 1:16 PM EDT) Narrative Performed At This result has an attachment that is n ot available. * EKG 12-LEAD - CMAXX REPORT (06/26/2021 1:16 PM EDT) Narrative Performed At This result has an attachment that is n ot available. * EKG 12 lead (06/26/2021 1:16 PM EDT) Specimen Narrative Performed At Ventricular Rate: [facility]ES [facility] EKG 94 BPM QRS Duration: 126 ms Q-T Interval: 360 ms QTC Calculation(Bazett): 450 ms R [place]: 79 degrees T [place]: 253 degrees : ATRIAL FIBRILLATION : NON-SPECIFIC INTRA-VENTRICULAR CONDUC TION BLOCK : MINIMAL VOLTAGE CRITERIA FOR LV ENLAR GEMENT, MAY BE A NORMAL : VARIANT ( Sokolow-Cooper ) : NON SPECIFIC T WAVE ABNORMALITY, ANTE ROLATERAL LEADS : ABNORMAL ECG : WHEN COMPARED WITH ECG OF 04-DEC-2020 12:07, : ATRIAL FIBRILLATION HAS REPLACED SINU S RHYTHM : Confirmed by Bettie Goodman ([id number]) on 06/26/2021 1:31:58 PM Procedure Note Interface, Received Via [employer] - 06/26/2021 1:32 PM EDT Ventricular Rate: 94 BPM QRS Duration: 126 ms Q-T Interval: 360 ms QTC Calculation(Bazett): 450 ms R [place]: 79 degrees T [place]: 253 degrees : ATRIAL FIBRILLATION : NON-SPECIFIC INTRA-VENTRICULAR CONDUCTION BLOCK : MINIMAL VOLTAGE CRITERIA FOR LV ENLARGEMENT, MAY BE A NORMAL : VARIANT ( Sokolow-Cooper ) : NON SPECIFIC T WAVE ABNORMALITY, ANTEROLATERAL LEADS : ABNORMAL ECG : WHEN COMPARED WITH ECG OF 04-DEC-2020 12:07, : ATRIAL FIBRILLATION HAS REPLACED SINUS RHYTHM : Confirmed by Bettie Goodman ([id number]) on 06/26/2021 1:31:58 PM Performing Organization Address City/State/ZIP Code [place] Number [facility]ES [facility] EKG documented in this encounter Visit Diagnoses Diagnosis PAF (paroxysmal atrial fibrillation) - Primary Atrial fibrillation Shortness of breath Hypertension, unspecified type documented in this encounter
--- OUTSIDE RECORDS SUMMARY | 2021-09-17 11:13 | CCD ---
Author Author [facility] Organization [facility] Address Unknown Phone Unavailable Care Team Providers Care Division Supervisor Name Role Phone SHELDON BROTHERS Unavailable Unavailable MUNASINGHE, UTHPALA Unavailable Unavailable Munasinghe, Uthpala Unavailable Mariano Mc MD Unavailable Unavailable Mariano Mc MD Unavailable Unavailable Mariano Mc MD Unavailable Unavailable Mariano Mc MD Unavailable Unavailable Mariano Mc MD Unavailable Unavailable Mariano Mc MD Unavailable Unavailable Mariano Mc MD Unavailable Unavailable Mariano Mc MD Unavailable Unavailable Mariano Mc MD Unavailable Unavailable Mariano Mc MD Unavailable Unavailable Mariano Mc MD Unavailable Unavailable Mariano Mc MD Unavailable Unavailable Mariano Mc MD Unavailable Unavailable Maraino Mc MD Unavailable Unavailable Mariano Mc MD Unavailable Unavailable Mariano Mc MD Unavailable Unavailable Mariano Mc MD Unavailable Unavailable Mariano Mc MD Unavailable Unavailable Mariano Mc MD Unavailable Unavailable PITTAMPALLI, AUSTYN Unavailable Unavailable BARANOVA, RASHID Unavailable Unavailable Zamudio, Vanessa MICROBIOLOGICAL LABORATORY TECHNICIAN Unavailable Unavailable Zamudio, Vanessa MICROBIOLOGICAL LABORATORY TECHNICIAN Unavailable Unavailable Zamudio, Vanessa MICROBIOLOGICAL LABORATORY TECHNICIAN Unavailable Unavailable Zamudio, Vanessa MICROBIOLOGICAL LABORATORY TECHNICIAN Unavailable Unavailable Zamudio, Vanessa MICROBIOLOGICAL LABORATORY TECHNICIAN Unavailable Unavailable Zamudio, Vanessa MICROBIOLOGICAL LABORATORY TECHNICIAN Unavailable Unavailable Zamudio, Vanessa MICROBIOLOGICAL LABORATORY TECHNICIAN Unavailable Unavailable Zamudio, Vanessa MICROBIOLOGICAL LABORATORY TECHNICIAN Unavailable Unavailable Zamudio, Vanessa MICROBIOLOGICAL LABORATORY TECHNICIAN Unavailable Unavailable Zamudio, Vanessa MICROBIOLOGICAL LABORATORY TECHNICIAN Unavailable Unavailable Zamudio, Vanessa MICROBIOLOGICAL LABORATORY TECHNICIAN Unavailable Unavailable Zamudio, Vanessa MICROBIOLOGICAL LABORATORY TECHNICIAN Unavailable Unavailable Zamudio, Vanessa MICROBIOLOGICAL LABORATORY TECHNICIAN Unavailable Unavailable Petrancosta, Doniphan Isabella PA-C Unavailable Unavailabl e Petrancosta, Doniphan Isabella PA-C Unavailable Unavailabl e Petrancosta, Doniphan Isabella PA-C Unavailable Unavailabl e Petrancosta, Doniphan Isabella PA-C Unavailable Unavailabl e Petrancosta, Doniphan Isabella PA-C Unavailable Unavailabl e Petrancosta, Doniphan Isabella PA-C Unavailable Unavailabl e Petrancosta, Doniphan Isabella PA-C Unavailable Unavailabl e Petrancosta, Doniphan Isabella PA-C Unavailable Unavailabl e Petrancosta, Doniphan Isabella PA-C Unavailable Unavailabl e Petrancosta, Doniphan Isabella PA-C Unavailable Unavailabl e Petrancosta, Doniphan Isabella PA-C Unavailable Unavailabl e Petrancosta, Doniphan Isabella PA-C Unavailable Unavailabl e Petrancosta, Doniphan Isabella PA-C Unavailable Unavailabl e Petrancosta, Doniphan Isabella PA-C Unavailable Unavailabl e Petrancosta, Doniphan Isabella PA-C Unavailable Unavailabl e Petrancosta, Doniphan Isabella PA-C Unavailable Unavailabl e Petrancosta, Doniphan Isabella PA-C Unavailable Unavailabl e Petrancosta, Doniphan Isabella PA-C Unavailable Unavailabl e Petrancosta, Doniphan Isabella PA-C Unavailable Unavailabl e Petrancosta, Doniphan Isabella PA-C Unavailable Unavailabl e Petrancosta, Doniphan Isabella PA-C Unavailable Unavailabl e Petrancosta, Doniphan Isabella PA-C Unavailable Unavailabl e Petrancosta, Doniphan Isabella PA-C Unavailable Unavailabl e Petrancosta, Doniphan Isabella PA-C Unavailable Unavailabl e Petrancosta, Doniphan Isabella PA-C Unavailable UnavailNorman Lai MD Unavailable Unavailable Norman MOORE MD Unavailable Unavailable Norman MOORE MD Unavailable Unavailable MOORE, Norman SPENCER MD Unavailable Unavailable MOORE, Norman SPENCER MD Unavailable Unavailable MOORE, Norman SPENCER MD Unavailable Unavailable MOORE, Nomran SPENCER MD Unavailable Unavailable MOORE, Norman SPENCER MD Unavailable Unavailable MOORE, Norman SPENCER MD Unavailable Unavailable MOORE, Norman SPENCER MD Unavailable Unavailable MOORE, Norman SPENCER MD Unavailable Unavailable MOORE, Norman SPENCER MD Unavailable Unavailable MOORE, Norman SPENCER MD Unavailable Unavailable MOORE, Norman SPENCER MD Unavailable Unavailable MOORE, Norman SPENCER MD Unavailable Unavailable MOORE, Norman SPENCER MD Unavailable Unavailable MOORE, Norman SPENCER MD Unavailable Unavailable MOORE, Norman SPENCER MD Unavailable Unavailable MOORE, Norman SPENCER MD Unavailable Unavailable BARANOVA, RASHID POPULATION HEALTH COACH-C Unavailable Unavailable BARANOVA, RASHID POPULATION HEALTH COACH-C Unavailable Unavailable BARANOVA, RASHID POPULATION HEALTH COACH-C Unavailable Unavailable BARANOVA, RASHID POPULATION HEALTH COACH-C Unavailable Unavailable BARANOVA, RASHID POPULATION HEALTH COACH-C Unavailable Unavailable BARANOVA, RASHID POPULATION HEALTH COACH-C Unavailable Unavailable BARANOVA, RASHID POPULATION HEALTH COACH-C Unavailable Unavailable BARANOVA, RASHID POPULATION HEALTH COACH-C Unavailable Unavailable BARANOVA, RASHID POPULATION HEALTH COACH-C Unavailable Unavailable BARANOVA, RASHID POPULATION HEALTH COACH-C Unavailable Unavailable BARANOVA, RASHID POPULATION HEALTH COACH-C Unavailable Unavailable BARANOVA, RASHID POPULATION HEALTH COACH-C Unavailable Unavailable BARANOVA, RASHID POPULATION HEALTH COACH-C Unavailable Unavailable Scott JOHNSON MD Unavailable Unavailable Scott JOHNSON MD Unavailable Unavailable Scott JOHNSON MD Unavailable Unavailable Scott JOHNSON MD Unavailable Unavailable Sarahy Cole MD Unavailable Unavailable Sarahy Cole MD Unavailable Unavailable Sarahy Cole MD Unavailable Unavailable Sarahy Cole MD Unavailable Unavailable Sarahy Cole MD Unavailable Unavailable Sarahy Cole MD Unavailable Unavailable Sarahy Cole MD Unavailable Unavailable Sarahy Cole MD Unavailable Unavailable Sarahy Cole MD Unavailable Unavailable Sarahy Cole MD Unavailable Unavailable Sarahy Cole MD Unavailable Unavailable Sarahy Cole MD Unavailable Unavailable Sarahy Cole MD Unavailable Unavailable Sarahy Cole MD Unavailable Unavailable Sarahy Cole MD Unavailable Unavailable Sarahy Cole MD Unavailable Unavailable Sarahy Cole MD Unavailable Unavailable Sarahy Cole MD Unavailable Unavailable Sarahy Cole MD Unavailable Unavailable Douglas, Sarahy Crum MD Unavailable Unavailable Douglas, Sarahy Crum MD Unavailable Unavailable Douglas, Sarahy Crum MD Unavailable Unavailable Douglas, Sarahy Crum MD Unavailable Unavailable Douglas, A Skyla WALSH Unavailable Unavailable Douglas, A Skyla WALSH Unavailable Unavailable Douglas, Sarahy Crum MD Unavailable Unavailable Douglas, Sarahy Crum MD Unavailable Unavailable Douglas, Sarahy Crum MD Unavailable Unavailable Douglas, Sarahy Crum MD Unavailable Unavailable Douglas, Sarahy Crum MD Unavailable Unavailable Douglas, Sarahy Crum MD Unavailable Unavailable Douglas, A Skyla WALSH Unavailable Unavailable Douglas, A Skyla WALSH Unavailable Unavailable Douglas, Sarahy Crum MD Unavailable Unavailable Douglas, Sarahy Crum MD Unavailable Unavailable Douglas, Sarahy Crum MD Unavailable Unavailable Douglas, A Skyla WALSH Unavailable Unavailable Douglas, A Skyla WALSH Unavailable Unavailable Douglas, A Skyla WALSH Unavailable Unavailable Douglas, A Skyla WALSH Unavailable Unavailable Douglas, A Skyla WALSH Unavailable Unavailable Douglas, A Skyla WALSH Unavailable Unavailable Douglas, A Skyla WALSH Unavailable Unavailable Douglas, Sarahy Crum MD Unavailable Unavailable Douglas, A Skyla WALSH Unavailable Unavailable Douglas, A Skyla WALSH Unavailable Unavailable Duoglas, A Skyla WALSH Unavailable Unavailable Douglas, A Skyla WALSH Unavailable Unavailable Douglas, A Skyla WALSH Unavailable Unavailable Douglas, Sarahy Crum MD Unavailable Unavailable Douglas, Sraahy Crum MD Unavailable Unavailable Douglas, A Skyla WALSH Unavailable Unavailable Douglas, A Skyla WALSH Unavailable Unavailable Douglas, A Skyla WALSH Unavailable Unavailable Douglas, A Skyla WALSH Unavailable Unavailable Douglas, A Skyla WALSH Unavailable Unavailable Douglas, A Skyla WALSH Unavailable Unavailable Douglas, Sarahy Crum MD Unavailable Unavailable Douglas, Sarahy Crum MD Unavailable Unavailable Douglas, Sarahy Crum MD Unavailable Unavailable Douglas, Sarahy Crum MD Unavailable Unavailable Douglas, Sarahy Crum MD Unavailable Unavailable Douglas, Sarahy Crum MD Unavailable Unavailable Douglas, Sarahy Crum MD Unavailable Unavailable Douglas, Sarahy Crum MD Unavailable Unavailable Douglas, Sarahy Crum MD Unavailable Unavailable Douglas, Sarahy Crum MD Unavailable Unavailable Douglas, Sarahy Crum MD Unavailable Unavailable Douglas, Sarahy Crum MD Unavailable Unavailable Douglas, Sarahy Crum MD Unavailable Unavailable Douglas, A Skyla WALSH Unavailable Unavailable Douglas, A Skyla WALSH Unavailable Unavailable Douglas, A Skyla WALSH Unavailable Unavailable Douglas, Sarahy Crum MD Unavailable Unavailable Douglas, Sarahy Crum MD Unavailable Unavailable Douglas, Sarahy Crum MD Unavailable Unavailable Douglas, Sarahy Crum MD Unavailable Unavailable Douglas, Sarahy Crum MD Unavailable Unavailable Douglas, aSrahy Crum MD Unavailable Unavailable Douglas, Sarahy Crum MD Unavailable Unavailable Douglas, Sarahy Crum MD Unavailable Unavailable Douglas, Sarahy Crum MD Unavailable Unavailable SILVA, Sarahy PUCKETT MD Unavailable Unavailable SILVA, Sarahy PUCKETT MD Unavailable Unavailable SILVA, Sarahy PUCKETT MD Unavailable Unavailable SILVA, Sarahy PUCKETT MD Unavailable Unavailable SILVA, Sarahy PUCKETT MD Unavailable Unavailable SILVA, Sarahy PUCKETT MD Unavailable Unavailable SILVA, Sarahy PUCKETT MD Unavailable Unavailable SILVA, Sarahy PUCKETT MD Unavailable Unavailable SILVA, Sarahy PUCKETT MD Unavailable Unavailable SILVA, Sarahy PUCKETT MD Unavailable Unavailable SILVA, Sarahy PUCKETT MD Unavailable Unavailable SILVA, Sarahy PUCKETT MD Unavailable Unavailable SILVA, Sarahy PUCKETT MD Unavailable Unavailable SILVA, Sarahy PUCKETT MD Unavailable Unavailable SILVA, Sarahy PUCKETT MD Unavailable Unavailable SILVA, Sarahy PUCKETT MD Unavailable Unavailable SILVA, Sarahy PUCKETT MD Unavailable Unavailable SILVA, Sarahy PUCKETT MD Unavailable Unavailable SILVA, Sarahy PUCKETT MD Unavailable Unavailable SILVA, Sarahy PUCKETT MD Unavailable Unavailable SILVA, Sarahy PUCKETT MD Unavailable Unavailable SILVA, Sarahy PUCKETT MD Unavailable Unavailable SILVA, Sarahy PUCKETT MD Unavailable Unavailable SILVA, Sarahy PUCKETT MD Unavailable Unavailable SILVA, Sarahy PUCKETT MD Unavailable Unavailable SILVA, Sarahy PUCKETT MD Unavailable Unavailable SILVA, Sarahy PUCKETT MD Unavailable Unavailable SILVA, Sarahy PUCKETT MD Unavailable Unavailable SILVA, Sarahy PUCKETT MD Unavailable Unavailable SILVA, Sarahy PUCKETT MD Unavailable Unavailable SILVA, Sarahy PUCKETT MD Unavailable Unavailable SILVA, Sarahy PUCKETT MD Unavailable Unavailable SILVA, Sarahy PUCKETT MD Unavailable Unavailable SILVA, Sarahy PUCKETT MD Unavailable Unavailable SILVA, Sarahy PUCKETT MD Unavailable Unavailable SILVA, Sarahy PUCKETT MD Unavailable Unavailable SILVA, Sarahy PUCKETT MD Unavailable Unavailable SILVA, Sarahy PUCKETT MD Unavailable Unavailable SILVA, Sarahy PUCKETT MD Unavailable Unavailable SILVA, Sarahy PUCKETT MD Unavailable Unavailable SILVA, Sarahy PUCKETT MD Unavailable Unavailable SILVA, Sarahy PUCKETT MD Unavailable Unavailable SILVA, Sarahy PUCKETT MD Unavailable Unavailable SILVA, Sarahy PUCKETT MD Unavailable Unavailable SILVA, Sarahy PUCKETT MD Unavailable Unavailable SILVA, Sarahy PUCKETT MD Unavailable Unavailable SILVA, Sarahy PUCKETT MD Unavailable Unavailable SILVA, Sarahy PUCKETT MD Unavailable Unavailable SILVA, Sarahy PUCKETT MD Unavailable Unavailable SILVA, Sarahy PUCKETT MD Unavailable Unavailable SILVA, Sarahy PUCKETT MD Unavailable Unavailable SILVA, Sarahy PUCKETT MD Unavailable Unavailable SILVA, Sarahy PUCKETT MD Unavailable Unavailable SILVA, Sarahy PUCKETT MD Unavailable Unavailable SILVA, Sarahy PUCKETT MD Unavailable Unavailable SILVA, Sarahy PUCKETT MD Unavailable Unavailable SILVA, Sarahy PUCKETT MD Unavailable Unavailable SILVA, Sarahy PUCKETT MD Unavailable Unavailable SILVA, Sarahy PUCKETT MD Unavailable Unavailable SILVA, Sarahy PUCKETT MD Unavailable Unavailable SILVA, Sarahy PUCKETT MD Unavailable Unavailable SILVA, Sarahy PUCKETT MD Unavailable Unavailable SILVA, Sarahy PUCKETT MD Unavailable Unavailable SILVA, Sarahy PUCKETT MD Unavailable Unavailable SILVA, Sarahy PUCKETT MD Unavailable Unavailable SILVA, Sarahy PUCKETT MD Unavailable Unavailable SILVA, Sarahy PUCKETT MD Unavailable Unavailable SILVA, Sarahy PUCKETT MD Unavailable Unavailable SILVA, Sarahy PUCKETT MD Unavailable Unavailable SILVA, Sarahy PUCKETT MD Unavailable Unavailable SILVA, Sarahy PUCKETT MD Unavailable Unavailable SILVA, Sarahy PUCKETT MD Unavailable Unavailable SILVA, Sarahy PUCKETT MD Unavailable Unavailable SILVA, Sarahy PUCKETT MD Unavailable Unavailable SILVA, Sarahy PUCKETT MD Unavailable Unavailable SILVA, Sarahy PUCKETT MD Unavailable Unavailable SILVA, Sarahy PUCKETT MD Unavailable Unavailable SILVA, Sarahy PUCKETT MD Unavailable Unavailable SILVA, Sarahy PUCKETT MD Unavailable Unavailable SILVA, Sarahy PUCKETT MD Unavailable Unavailable SILVA, Sarahy PUCKETT MD Unavailable Unavailable SILVA, Sarahy PUCKETT MD Unavailable Unavailable SILVA, Sarahy PUCKETT MD Unavailable Unavailable SILVA, Sarahy PUCKETT MD Unavailable Unavailable SILVA, Sarahy PUCKETT MD Unavailable Unavailable SILVA, Sarahy PUCKETT MD Unavailable Unavailable SILVA, Sarahy PUCKETT MD Unavailable Unavailable SILVA, Sarahy PUCKETT MD Unavailable Unavailable SILVA, Sarahy PUCKETT MD Unavailable Unavailable SILVA, Sarahy PUCKETT MD Unavailable Unavailable SILVA, Sarahy PUCKETT MD Unavailable Unavailable SILVA, Sarahy PUCKETT MD Unavailable Unavailable SILVA, Sarahy PUCKETT MD Unavailable Unavailable SILVA, Sarahy PUCKETT MD Unavailable Unavailable SILVA, Sarahy PUCKETT MD Unavailable Unavailable SILVA, Sarahy PUCKETT MD Unavailable Unavailable SILVA, Sarahy PUCKETT MD Unavailable Unavailable SILVA, Sarahy PUCKETT MD Unavailable Unavailable SILVA, Sarahy PUCKETT MD Unavailable Unavailable SILVA, Sarahy PUCKETT MD Unavailable Unavailable SILVA, Sarahy PUCKETT MD Unavailable Unavailable SILVA, Sarahy PUCKETT MD Unavailable Unavailable SILVA, Sarahy PUCKETT MD Unavailable Unavailable SILVA, Sarahy PUCKETT MD Unavailable Unavailable SILVA, Sarahy PUCKETT MD Unavailable Unavailable SILVA, Sarahy PUCKETT MD Unavailable Unavailable SILVA, Sarahy PUCKETT MD Unavailable Unavailable SILVA, Sarahy PUCKETT MD Unavailable Unavailable SILVA, Sarahy PUCKETT MD Unavailable Unavailable HEBER, HAN PA Unavailable Unavailable HEBER, HAN PA Unavailable Unavailable HEBER, HAN PA Unavailable Unavailable HEBER, HAN PA Unavailable Unavailable HEBER, HAN PA Unavailable Unavailable HEBER, HAN PA Unavailable Unavailable HEBER, HAN PA Unavailable Unavailable HEBER, HAN PA Unavailable Unavailable HEBER, HAN PA Unavailable Unavailable HEBER, HAN PA Unavailable Unavailable HEBER, HAN PA Unavailable Unavailable HEBER, HAN PA Unavailable Unavailable HEBER, HAN PA Unavailable Unavailable HEBER, HAN PA Unavailable Unavailable HEBER, HAN PA Unavailable Unavailable HEBER, HAN PA Unavailable Unavailable HEBER, HAN PA Unavailable Unavailable HEBER, HAN PA Unavailable Unavailable HEBER, HAN PA Unavailable Unavailable HEBER, HAN PA Unavailable Unavailable HEBER, HAN PA Unavailable Unavailable HEBER, HAN PA Unavailable Unavailable HEBER, HAN PA Unavailable Unavailable HEBER, HAN PA Unavailable Unavailable HEBER, HAN PA Unavailable Unavailable HEBER, HAN PA Unavailable Unavailable HEBER, HAN PA Unavailable Unavailable HEBER, HAN PA Unavailable Unavailable HEBER, HAN PA Unavailable Unavailable HEBER, HAN PA Unavailable Unavailable HEBER, HAN PA Unavailable Unavailable HEBER, HAN PA Unavailable Unavailable HEBER, HAN PA Unavailable Unavailable HEBER, HAN PA Unavailable Unavailable HEBER, HAN PA Unavailable Unavailable HEBER, HAN PA Unavailable Unavailable [facility], [facility] Unavailable [facility] Unavailable Melinda SCHULTZ MD Unavailable Unavailable Melinda SCHULTZ MD Unavailable Unavailable Melinda SCHULTZ MD Unavailable Unavailable Melinda SCHULTZ MD Unavailable Unavailable Melinda SCHULTZ MD Unavailable Unavailable Melinda SCHULTZ MD Unavailable Unavailable Melinda SCHULTZ MD Unavailable Unavailable Melinda SCHUTLZ MD Unavailable Unavailable Melinda SCHULTZ MD Unavailable Unavailable Melinda SCHULTZ MD Unavailable Unavailable Melinda SCHULTZ MD Unavailable Unavailable Melinda SCHULTZ MD Unavailable Unavailable Melinda SCHULTZ MD Unavailable Unavailable Melinda SCHULTZ MD Unavailable Unavailable Melinda SCHULTZ MD Unavailable Unavailable Melinda SCHULTZ MD Unavailable Unavailable Melinda SCHULTZ MD Unavailable Unavailable CHARLAMB J JASMINA WALSH Unavailable Unavailable CHARLAMBMelinda MD Unavailable Unavailable CHARLAMB J JASMINA WALSH Unavailable Unavailable CHARLAMB J JASMINA WALSH Unavailable Unavailable CHARLAMBMelinda MD Unavailable Unavailable CHARLAMB J JASMINA WALSH Unavailable Unavailable CHARLAMBMelinda MD Unavailable Unavailable CHARLAMB J JASMINA WALSH Unavailable Unavailable CHARLAMBMelinda MD Unavailable Unavailable CHARLAMB J JASMINA WALSH Unavailable Unavailable CHARLAMBMelinda MD Unavailable Unavailable CHARLAMBMelinda MD Unavailable Unavailable CHARLAMBMelinda MD Unavailable Unavailable CHARLAMBMelinda MD Unavailable Unavailable CHARLAMB J JASMINA WALSH Unavailable Unavailable CHARLAMBMelinda MD Unavailable Unavailable CHARLAMB J JASMINA WALSH Unavailable Unavailable CHARLAMB J JASMINA WALSH Unavailable Unavailable CHARLAMB J JASMINA WALSH Unavailable Unavailable CHARLAMB J JASMINA WALSH Unavailable Unavailable CHARLAMBMelinda MD Unavailable Unavailable CHARLAMB J JASMINA WALSH Unavailable Unavailable CHARLAMB J JASMINA WALSH Unavailable Unavailable CHARLAMBMelinda MD Unavailable Unavailable REGINOLAMBMelinda MD Unavailable Unavailable CHARLAMMelinda Brooks MD Unavailable Unavailable REGINOLAMBMelinda MD Unavailable Unavailable CHARLAMMelinda Brooks MD Unavailable Unavailable REGINOLAMMelinda Brooks MD Unavailable Unavailable REGINOLAMMelinda Brooks MD Unavailable Unavailable REGINOLAMBMelinda MD Unavailable Unavailable REGINOLAMMelinda Brooks MD Unavailable Unavailable CHARLAMCecilia J JASMINA WALSH Unavailable Unavailable CHARLAMMelinda Brooks MD Unavailable Unavailable CHARLAMMelinda Brooks MD Unavailable Unavailable Melinda SCHULTZ MD Unavailable Unavailable Melinda SCHULTZ MD Unavailable Unavailable Melinda SCHULTZ MD Unavailable Unavailable REGINOLAMMelinda Brooks MD Unavailable Unavailable REGINOLAMMelinda Brooks MD Unavailable Unavailable REGINOLAMMelinda Brooks MD Unavailable Unavailable CHARLAMMelinda Brooks MD Unavailable Unavailable CHARLAMMelinda Brooks MD Unavailable Unavailable REGINOLAMMelinda Brooks MD Unavailable Unavailable REGINOLAMMelinda Brooks MD Unavailable Unavailable REGINOLAMBMelinda MD Unavailable Unavailable REGINOLAMBMelinda MD Unavailable Unavailable CHARLAMBMelinda MD Unavailable Unavailable CHARLAMBMelinda MD Unavailable Unavailable CHARLAMBMelinda MD Unavailable Unavailable REGINOLAMMelinda Brooks MD Unavailable Unavailable Melinda SCHULTZ MD Unavailable Unavailable Melinda SCHULTZ MD Unavailable Unavailable REGINOLAMMelinda Brooks MD Unavailable Unavailable CHARLAMBMelinda MD Unavailable Unavailable CHARLAMMelinda Brooks MD Unavailable Unavailable CHARLAMB, J JASMINA MD Unavailable Unavailable Melinda SCHULTZ MD Unavailable Unavailable Melinda SCHULTZ MD Unavailable Unavailable Melinda SCHULTZ MD Unavailable Unavailable Melinda SCHULTZ MD Unavailable Unavailable Melinda SCHULTZ MD Unavailable Unavailable Shaban, M Eman Unavailable Shaban, M Eman Unavailable Shaban, M Eman Unavailable Shaban, M Eman Unavailable Shaban, M Eman Unavailable Shaban, M Eman Unavailable Shaban, M Eman Unavailable Shaban, M Eman Unavailable Shaban, M Eman Unavailable Shaban, M Eman Unavailable Shaban, M Eman Unavailable Shaban, M Eman Unavailable DANDRE BENJAMIN Unavailable Unavailable Sarahy PAZ Unavailable Unavailable BRUCE LOZANO MD Unavailable Unavailable BRUCE LOZANO MD Unavailable Unavailable BRUCE LOZANO MD Unavailable Unavailable BRUCE LOZANO MD Unavailable Unavailable BRUCE LOZANO MD Unavailable Unavailable BRUCE LOZANO MD Unavailable Unavailable BRUCE LOZANO MD Unavailable Unavailable BRUCE LOZANO MD Unavailable Unavailable BRUCE LOZANO MD Unavailable Unavailable BRUCE LOZANO MD Unavailable Unavailable BRUCE LOZANO MD Unavailable Unavailable BRUCE LOZANO MD Unavailable Unavailable BRUCE LOZANO MD Unavailable Unavailable BRUCE LOZANO MD Unavailable Unavailable BRUCE LOZANO MD Unavailable Unavailable Melinda SCHULTZ MD Unavailable Unavailable Melinda SCHULTZ MD Unavailable Unavailable Melinda SCHULTZ MD Unavailable Unavailable Melinda SCHULTZ MD Unavailable Unavailable Melinda SCHULTZ MD Unavailable Unavailable Melinda SCHULTZ MD Unavailable Unavailable Melinda SCHULTZ MD Unavailable Unavailable Melinda SCHULTZ MD Unavailable Unavailable Melinda SCHULTZ MD Unavailable Unavailable CHARMelinda KAUFMAN MD Unavailable Unavailable Melinda SCHULTZ MD Unavailable Unavailable CHARMelinda KAUFMAN MD Unavailable Unavailable CHARPERBMelinda MD Unavailable Unavailable CHARLAMBMelinda MD Unavailable Unavailable CHARLAMBMelinda MD Unavailable Unavailable CHARLAMMelinda Brooks MD Unavailable Unavailable CHARMelinda KAUFMAN MD Unavailable Unavailable Melinda SCHULTZ MD Unavailable Unavailable Melinda SCHULTZ MD Unavailable Unavailable REGINOLAMBMelinda MD Unavailable Unavailable REGINOLAMMelinda Brooks MD Unavailable Unavailable CHARLAMMelinda Brooks MD Unavailable Unavailable CHARLAMMelinda Brooks MD Unavailable Unavailable REGINOLAMMelinda Brooks MD Unavailable Unavailable Melinda SCHULTZ MD Unavailable Unavailable Melinda SCHULTZ MD Unavailable Unavailable Melinda SCHULTZ MD Unavailable Unavailable Melinda SCHULTZ MD Unavailable Unavailable CHARLAMMelinda Brooks MD Unavailable Unavailable CHARMelinda KAUFMAN MD Unavailable Unavailable Melinda SCHULTZ MD Unavailable Unavailable Melinda SCHULTZ MD Unavailable Unavailable Melinda SCHULTZ MD Unavailable Unavailable Melinda SCHULTZ MD Unavailable Unavailable Melinda SCHULTZ MD Unavailable Unavailable Melinda SCHULTZ MD Unavailable Unavailable Melinda SCHULTZ MD Unavailable Unavailable Melinda SCHULTZ MD Unavailable Unavailable Melinda SCHULTZ MD Unavailable Unavailable Melinda SCHULTZ MD Unavailable Unavailable Melinda SCHULTZ MD Unavailable Unavailable Melinda SCHULTZ MD Unavailable Unavailable Melinda SCHULTZ MD Unavailable Unavailable Melinda SCHULTZ MD Unavailable Unavailable Melinda SCHULTZ MD Unavailable Unavailable Melinda SCHULTZ MD Unavailable Unavailable Melinda SCHULTZ MD Unavailable Unavailable Melinda SCHULTZ MD Unavailable Unavailable Melinda SCHULTZ MD Unavailable Unavailable Melinda SCHULTZ MD Unavailable Unavailable Melinda SCHULTZ MD Unavailable Unavailable Melinda SCHULTZ MD Unavailable Unavailable Melinda SCHULTZ MD Unavailable Unavailable Melinda SCHULTZ MD Unavailable Unavailable Melinda SCHULTZ MD Unavailable Unavailable Melinda SCHULTZ MD Unavailable Unavailable Melinda SCHULTZ MD Unavailable Unavailable Melinda SCHULTZ MD Unavailable Unavailable Melinda SCHULTZ MD Unavailable Unavailable Melinda SCHULTZ MD Unavailable Unavailable Melinda SCHULTZ MD Unavailable Unavailable Melinda SCHULTZ MD Unavailable Unavailable Melinda SCHULTZ MD Unavailable Unavailable Melinda SCHULTZ MD Unavailable Unavailable Melinda SCHULTZ MD Unavailable Unavailable Melinda SCHULTZ MD Unavailable Unavailable Melinda SCHULTZ MD Unavailable Unavailable Melinda SCHULTZ MD Unavailable Unavailable Melinda SCHULTZ MD Unavailable Unavailable Melinda SCHULTZ MD Unavailable Unavailable Melinda SCHULTZ MD Unavailable Unavailable Melinda SCHULTZ MD Unavailable Unavailable Melinda SCHULTZ MD Unavailable Unavailable Melinda SCHULTZ MD Unavailable Unavailable Melinda SCHULTZ MD Unavailable Unavailable Melinda SCHULTZ MD Unavailable Unavailable Melinda SCHULTZ MD Unavailable Unavailable Melinda SCHULTZ MD Unavailable Unavailable Melinda SCHULTZ MD Unavailable Unavailable LEVY, L AKSHAT RPA-C Unavailable Unavailable LEVY, L AKSHAT RPA-C Unavailable Unavailable LEVY, L AKSHAT RPA-C Unavailable Unavailable LEVY, L AKSHAT RPA-C Unavailable Unavailable LEVY, L AKSHAT RPA-C Unavailable Unavailable LEVY, L AKSHAT RPA-C Unavailable Unavailable LEVY, L AKSHAT RPA-C Unavailable Unavailable LEVY, L AKSHAT RPA-C Unavailable Unavailable LEVY, L AKSHAT RPA-C Unavailable Unavailable LEVY, L AKSHAT RPA-C Unavailable Unavailable LEVY, L AKSHAT RPA-C Unavailable Unavailable LEVY, L AKSHAT RPA-C Unavailable Unavailable LEVY, L AKSHAT RPA-C Unavailable Unavailable LEVY, L AKSHAT RPA-C Unavailable Unavailable LEVY, L AKSHAT RPA-C Unavailable Unavailable LEVY, L AKSHAT RPA-C Unavailable Unavailable LEVY, L AKSHAT RPA-C Unavailable Unavailable LEVY, L AKSHAT RPA-C Unavailable Unavailable LEVY, L AKSHAT RPA-C Unavailable Unavailable LEYV, L AKSHAT RPA-C Unavailable Unavailable LEVY, L AKSHAT RPA-C Unavailable Unavailable LEVY, L AKSHAT RPA-C Unavailable Unavailable LEVY, L AKSHAT RPA-C Unavailable Unavailable Duncan Roa MD Unavailable Unavailable Duncan Roa MD Unavailable Unavailable Duncan Roa MD Unavailable Unavailable Duncan Roa MD Unavailable Unavailable Duncan Roa MD Unavailable Unavailable Duncan Roa MD Unavailable Unavailable Duncan Roa MD Unavailable Unavailable Duncan Roa MD Unavailable Unavailable Duncan Roa MD Unavailable Unavailable Duncan Roa MD Unavailable Unavailable Duncan Roa MD Unavailable Unavailable Duncan Roa MD Unavailable Unavailable Duncan Roa MD Unavailable Unavailable Duncan Roa MD Unavailable Unavailable [place], Duncan MD Unavailable Unavailable [place], Duncan MD Unavailable Unavailable [place], Duncan MD Unavailable Unavailable [place], Duncan MD Unavailable Unavailable [place], Duncan MD Unavailable Unavailable [place], Duncan MD Unavailable Unavailable [place], Duncan MD Unavailable Unavailable [place], Duncan MD Unavailable Unavailable [place], Duncan MD Unavailable Unavailable [place], Duncan MD Unavailable Unavailable [place], Duncan MD Unavailable Unavailable [place], Duncan MD Unavailable Unavailable [place], Duncan MD Unavailable Unavailable [place], Duncan MD Unavailable Unavailable [place], Duncan MD Unavailable Unavailable [place], Duncan MD Unavailable Unavailable [place], Duncan MD Unavailable Unavailable SHABAN, M EMAN Unavailable Unavailable Ahmed, Dandre Unavailable Ahmed, Dandre Unavailable HADZIPASIC, FAB MD Unavailable Unavailable HADZIPASIC, FAB MD Unavailable Unavailable Re-disclosure Warning The records that you are about to access may contain information from federally-assisted alcohol or drug abuse programs. If such information is present, then the following federally mandated warning applies: This information has been disclosed to you from records protected by federal confidentiality rules (42 CFR part 2). The federal rules prohibit you from making any further disclosure of this information unless further disclosure is expressly permitted by the written consent of the person to whom it pertains or as otherwise permitted by 42 CFR part 2. A general authorization for the release of medical or other information is NOT sufficient for this purpose. The Federal rules restrict any use of the information to criminally investigate or prosecute any alcohol or drug abuse patient.The records that you are about to access may contain highly sensitive health information, the redisclosure of which is protected by Article 27-F of the [facility] Public Health law. If you continue you may have access to information: Regarding HIV / AIDS; Provided by facilities licensed or operated by the [facility] Office of Mental Health; or Provided by the [facility] Office for People With Developmental Disabilities. If such information is present, then the following [facility] mandated warning applies: This information has been disclosed to you from confidential records which are protected by state law. State law prohibits you from making any further disclosure of this information without the specific written consent of the person to whom it pertains, or as otherwise permitted by law. Any unauthorized further disclosure in violation of state law may result in a fine or mcc sentence or both. A general authorization for the release of medical or other information is NOT sufficient authorization for further disc losure. Family History Family Member Name Family Member Gender Family Member Status Date o f Status Description Data Source(s) Unknown Male Problem [facility] ([facility]) Unknown Male Problem [facility] ([facility]) Unknown Unknown Problem [facility] ([facility] Unknown Unknown Problem [facility] ([facility] Unknown Unknown Problem [facility] ([facility] Unknown Unknown Problem [facility] ([facility] Encounters Encounter Providers Location Date Indications Data Source(s ) Outpatient Attender: JASMINA NUNEZeferrer: Skyla Ayers ms, MD 11/06/2021 12:00:[address] [facility] Outpatient 10/02/2021 12:00:[address] [facility] Outpatient Attender: Sheldon Smith ttender: SHELDON BROTHERSReferrer: AUSTYN MAYERS 09/21/2021 12:00:00 AM [facility] Outpatient Attender: SHELDON SMITH ttender: Sheldon BrothersReferrer: AUSTYN PITTAMPJEANETTEI 09/20/2021 12:00:00 AM [facility] Outpatient Attender: SHELDON SMITH ttender: Sheldon BrothersReferrer: AUSTYN PATELI 09/20/2021 12:00:00 AM [facility] Outpatient Attender: DANDRE BENJAMINAttender: Dandre Benjamin 09/20/2021 12:00:[address] [facility] Outpatient Attender: JASMINA SCHULTZ MD 09/20/2021 12:00:[address] [facility] Outpatient Attender: Eliezer Martettender: ELIEZER CAMPOS 09/13/2021 12:00:[address] [facility] Outpatient Attender: JASMINA NUNEZeferrer: Skyla Ayers ms, MD 09/11/2021 12:00:[address] [facility] Outpatient Attender: JASMINA SCHULTZ MD 09/11/2021 12:00:[address] [facility] Inpatient Attender: YUNIEL JOHNSON Arturo nder: RBUCE LOZANO MDAttender: FAB SARAH MDAttender: Angel CornejoAttender: ANGEL CORNEJOAttender: JOHANNA MOORE MDAdmitter: ANGEL CORNEJOReferrer: ANGEL CORNEJO [id number] 12:00:00 AM EDT - 09/07/2021 11:29:00 AM EDT difficulty breathing [facility] difficulty breathing Patient discharged. Emergency Attender: JOHANNA MOORE MDAd mitter: ANGEL CORNEJOReferrer: JOHANNA MOORE MD 09/03/2021 12:00:00 AM [facility] 09/03/2021 12:00:00 AM EDT [facility] Outpatient Attender: Skyla Cole MD Main Office 08/30/2021 01:45:0 0 PM EDT [facility] ([facility] SDC Attender: JASMINA SCHULTZ MDAdmitter: JASMINA Brooks MD [facility] 08/28/2021 08:29:28 AM EDT [facility] Outpatient Attender: JASMINA SCHULTZ MDReferrer: Skyla Ayers ms, MD [facility] 2021 12:00:00 AM EDT - 2021 11:50:01 AM EDT [facility] Outpatient Attender: JASMINA SCHULTZ MD 2021 12:00:00 AM [facility] OFFICE OUTPATIENT NEW 60 MINUTES Attender: LAVERN ASCENCIO MD Eppo gina 08/14/2021 11:45:00 AM EDT [facility] ([facility]) Outpatient Attender: JASMINA SCHULTZ MD [facility] 12:00:00 AM EDT [facility] Outpatient Referrer: RASHID DON MOB-MOB.PAT 08/06 08:33:15 AM EDT - 08/06/2021 08:33:18 AM EDT [facility] Outpatient Referrer: Skyla Cole MD 08/06/2021 12:00:00 AM EDT [facility] Outpatient Attender: Skyla Cole MD Main Office 07/06/2021 10:00:0 0 AM EDT [facility] ([facility] Outpatient Referrer: RASHID IYER-C 06/28/2021 09: 56:18 AM EDT [facility] Attender: JASMINA SCHULTZ MDAdmitter: JASMINA SCHULTZ MDReferrer: Mariano Mc MD [facility] 06/27/2021 03:05:47 PM EDT - 08/10/2021 12:41:00 PM EDT [facility] Patient discharged. Outpatient Attender: RASHID IYER-CReferrer : Skyla Cole MD [address] [place] [address] 06/26/2021 01:02:33 PM EDT - 06/26/2021 02:28:17 PM EDT [facility] Outpatient Referrer: RASHID IYER-C 06/26/20 09:11:00 AM EDT Paroxysmal atrial fibrillation [facility] Paroxysmal atrial fibrillation Outpatient 06/26/2021 12:00:00 AM [facility] Outpatient Attender: VIRY PAZReferrer: Skyla roman MD 06/19/2021 12:00:00 AM EDT Presence of automatic (implantable) cardiac defibrilla [facility] Presence of automatic (implantable) card iac defibrillator Outpatient Attender: JASMINA SCHULTZ MDReferrer: Skyla Ayers ms, MD 06/15/20[facility] HAN hernández 06/03/2021 02:20:00 PM EDT [facility] ([facility] Outpatient Attender: Vanessa leone 05/25/2021 08:35:00 AM EDT [facility] ([facility]) Outpatient Attender: Skyla Cole MD Main Office 05/15/2021 10:30:0 0 AM EDT [facility] ([facility] Outpatient Attender: Skyla Cole MD Main Office 04/05/2021 08:30:0 0 AM EDT [facility] ([facility] Outpatient Attender: VIRY Amaraler: Skyla roman MD 02/22/2021 12:00:00 AM EDT Presence of automatic (implantable) cardiac defibrilla [facility] Presence of automatic (implantable) card iac defibrillator Outpatient Attender: Duncan Martines/Janina/Luisito/Thompson l 01/08/2021 07:15:00 AM EST [facility] ([facility] Outpatient Attender: AKSHAT LEVY RPA-CReferrer: Skyla Stroud ams, MD [facility] 12/04/2020 11:55:25 AM EST - 12/04/2020 12:45:16 PM EST Paroxysmal atrial fibrillation [facility] Paroxysmal atrial fibrillation Outpatient Attender: AKSHAT YU 12/04/2020 12:00:00 AM EST [facility] Outpatient Attender: Duncan Martines/Janina/Luisito/Thompson l 11/24/2020 06:40:00 AM EST [facility] ([facility] Outpatient Attender: VIRY Amaraler: Skyla roman MD 11/14/2020 12:00:00 AM EST Presence of automatic (implantable) cardiac defibrilla [facility] Presence of automatic (implantable) card iac defibrillator Outpatient Attender: Isabella Magdaleno PA-C Main Office 10/16/2020 12:15:00 PM EST [facility] ([facility] Outpatient Attender: VIRY Bañuelos: Skyla roman MD 07/25/2020 12:00:00 AM EDT Presence of automatic (implantable) cardiac defibrilla [facility] Presence of automatic (implantable) card iac defibrillator Immunizations Vaccine Date Status Description Data Source(s) pneumococcal polysaccharide PPV23 04/05/2021 08:27:00 AM EDT comple cherry [facility] ([facility] Moderna Sars-(Covid-19) vaccine, mRNA, LNP-S, PF, 100 mcg/ 0.5 mL 01/02/2021 07:29:00 AM EST completed [facility] ([facility] COVID-19 VACCINE Moderna 01/02/2021 12:00:00 AM EST completed [facility] Vaccine Series Complete: YESThis Data wa s Submitted to [facility] Via [employer]. COVID-19 VACCINE, MRNA-1273, LNP-S (MODERNA)/PF 01/02/2021 1 2:00:00 AM EST completed [facility] Covid-19 Moderna vaccine, mRNA, LNP-S, PF,100mcg/0.5 m L 1st dose 01/01/2021 11:00:00 PM EST completed [facility] ([facility]) Moderna Sars-(Covid-19) vaccine, mRNA, LNP-S, PF, 100 mcg/ 0.5 mL 12/03/2020 07:28:00 AM EST completed [facility] ([facility] COVID-19 VACCINE Moderna 12/03/2020 12:00:00 AM EST completed [facility] Vaccine Series Complete: NOThis Data was Submitted to [facility] Via [employer]. COVID-19 VACCINE, MRNA-1273, LNP-S (MODERNA)/PF 12/03/2020 1 2:00:00 AM EST completed [facility] Covid-19 Moderna vaccine, mRNA, LNP-S, PF,100mcg/0.5 m L 1st dose 12/02/2020 11:00:00 PM EST completed [facility] ([facility]) Medications Medication Brand Name Start Date Product Form Dose Route Admi nistrative Instructions Pharmacy Instructions Status Indications Reaction Description Data Source(s) Ramipril 10 MG Oral Capsule RAMIPRIL 09/10/2021 12:00:00 AM EST xiomy le 90 TAKE ONE CAPSULE BY MOUTH EVERY DAY TAKE ONE CAPSULE BY MOUTH EVERY DAY SOLD: 09/11/2021 [facility] 10 mg 09/07/2021 12:00:00 AM EDT tablet 180 TAKE TWO TABLETS BY MOUTH THREE TIMES A DAY TAKE TWO TABLETS BY MOUTH THREE TIMES A DAY SOLD: 09/09/2021 [facility] 20 mg 09/07/2021 12:00:00 AM EDT tablet 3 TAKE ONE TABLET BY MOUTH EVERY DAY FOR 3 DAYS TAKE ONE TABLET BY MOUTH EVERY DAY FOR 3 DAYS SOLD: 09/07/2021 [facility] Colchicine 0.6 MG Oral Capsule Colchicine 08/30/2021 12:00:00 AM EDT ORAL active [facility] ([facility] Digoxin 0.125 MG Oral Tablet 125 mcg (0.125 mg) DIGOXIN 2021 12:00:00 AM EDT tablet 30 TAKE ONE TABLET BY MOUTH ADELINE DAY TAKE ONE TABLET BY MOUTH EVERY DAY SOLD: 08/30/2021 [facility] Magnesium Chloride 0.07623 MEQ/ML / Pota ssium Chloride 0.0497 MEQ/ML / Sodium Acetate 0.0163 MEQ/ML / Sodium Chloride 0.0899 MEQ/ML / Sodium gluconate 5.02 MG/ML Injectable Solution [Normosol-R] electrolyte-R (NORMOSOL-R/PLASMALYTE-R) solution electrolyte-R (NORMOSOL-R/PLASMALYTE-R) solution 08/10 10:50:00 AM EDT Intravenous active at 1 00 mL/hr, Intravenous, Continuous, Starting on Fri08/10/21 at 1050, Pre-op [facility] Medication administered onsite 120 mg 07/17/2021 12:00:00 AM EDT capsule,ext rel. pellet s 24 hr 30 TAKE ONE CAPSULE BY MOUTH EVERY DAY AT BEDTIME TAKE ONE CAPSULE BY MOUTH EVERY DAY AT BEDTIME SOLD: 07/17/2021 [facility] 10 mg 06/29/2021 12:00:00 AM EDT tablet 30 TAKE FOUR TABLETS BY MOUTH EVERY DAY FOR 3 DAYS, THEN 3 TABLETS FOR 3 DAYS, THEN 2 TABLETS FOR 3 DAYS, THEN 1 TABLET FOR 3 DAYS, THEN STOP TAKE FOUR TABLETS BY MOUTH EVERY DAY FOR 3 DAYS, THEN 3 TABLETS FOR 3 DAYS, THEN 2 TABLETS FOR 3 DAYS, THEN 1 TABLET FOR 3 DAYS, THEN STOP SOLD: 06/29/2021 [facility] Methimazole 5 MG Oral Tablet Methimazole 06/29/2021 12:00:00 AM EDT active [facility] ([facility] Prednisone 10 MG Oral Tablet Prednisone 06/29/2021 12:00:00 AM EDT ORAL completed [facility] ([facility] 50 mg 06/29/2021 12:00:00 AM EDT tablet extended release 24 hr 30 TAKE ONE TABLET BY MOUTH EVERY DAY TAKE ONE TABLET BY MOUTH EVERY DAY SOLD: 06/29/2021 [facility] 5 mg 06/27/2021 12:00:00 AM EDT tablet 60 TAKE ONE TABLET BY MOUTH TWICE A DAY TAKE ONE TABLET BY MOUTH TWICE A DAY SOLD: 09/02/2021 [facility] Methimazole 5 MG Oral Tablet methIMAzole 5 MG Oral Tab let (Tapazole) methIMAzole 5 MG Oral Tablet (Tapazole) 06/27/2021 12:00:00 AM EDT 5 mg Oral active Hyperthyroidism Take 1 tablet by mouth [facility] Hyperthyroidism Ramipril 10 MG Oral Capsule RAMIPRIL 06/27/2021 12:00:00 AM EDT capsu le 90 TAKE ONE CAPSULE BY MOUTH EVERY DAY TAKE ONE CAPSULE BY MOUTH EVERY DAY SOLD: 06/29/2021 [facility] 5 mg 06/27/2021 12:00:00 AM EDT tablet 60 TAKE ONE TABLET BY MOUTH TWICE A DAY TAKE ONE TABLET BY MOUTH TWICE A DAY SOLD: 06/29/2021 [facility] 5 mg 06/27/2021 12:00:00 AM EDT tablet 60 TAKE ONE TABLET BY MOUTH TWICE A DAY TAKE ONE TABLET BY MOUTH TWICE A DAY SOLD: 08/08/2021 [facility] 100 mg 06/27/2021 12:00:00 AM EDT tablet extended release 24 hr 90 TAKE ONE TABLET BY MOUTH EVERY DAY TAKE ONE TABLET BY MOUTH EVERY DAY SOLD: 06/29/2021 [facility] 24 HR metoprolol succinate 100 MG Extend ed Release Oral Tablet Metoprolol Succinate ER 100 MG Oral Tablet Extended Release 24 Hour (TOPROL-XL) Metoprolol Succinate ER 100 MG Oral Tablet Extended Release 24 Hour (TOPROL-XL) 06/26/2021 12:00:00 AM EDT 100 mg Oral active PAF (paroxysmal atrial fibrillation)Shortness of breath Take 1 tablet by mouth [facility] PAF (paroxysmal atrial fibrillation) Shortness of breath Ramipril 10 MG Oral Capsule Ramipril 10 MG Oral Capsul e (ALTACE) Ramipril 10 MG Oral Capsule (ALTACE) 06/26/2021 12:00:00 AM EDT 10 mg Oral active Take 1 capsule by mouth daily [facility] Ramipril 10 MG Oral Capsule Ramipril 10 MG Oral Capsul e (ALTACE) Ramipril 10 MG Oral Capsule (ALTACE) 06/01/2021 12:00:00 AM EDT aborted TAKE ONE CAPSULE BY MOUTH EVERY DAY [facility] Ramipril 10 MG Oral Capsule RAMIPRIL 06/01/2021 12:00:00 AM EDT capsu le 30 TAKE ONE CAPSULE BY MOUTH EVERY DAY TAKE ONE CAPSULE BY MOUTH EVERY DAY SOLD: 06/03/2021 [facility] 20 mg 05/25/2021 12:00:00 AM EDT tablet 8 TAKE ONE TABLET BY MOUTH TWICE A DAY FOR 4 DAYS TAKE ONE TABLET BY MOUTH TWICE A DAY FOR 4 DAYS SOLD: 2020 [facility] Prednisone 20 MG Oral Tablet Prednisone 05/25/2021 12:00:00 AM EDT completed [facility] ([facility]) 50 mg 03/15/2021 12:00:00 AM EDT tablet extended release 24 hr 180 TAKE ONE TABLET BY MOUTH TWICE A DAY TAKE ONE TABLET BY MOUTH TWICE A DAY SOLD: 03/17/2021 [facility] 24 HR metoprolol succinate 50 MG Extende d Release Oral Tablet Metoprolol Succinate ER 50 MG Oral Tablet Extended Release 24 Hour (TOPROL-XL) Metoprolol Succinate ER 50 MG Oral Tablet Extended Release 24 Hour (TOPROL-XL) 03/14/2021 12:00:00 AM EDT aborted PAF (paroxysmal atrial fibrillation) TAKE ONE TABLET BY MOUTH TWICE A DAY [facility] PAF (paroxysmal atrial fibrillation) 120 mg 03/07/2021 12:00:00 AM EDT capsule,ext rel. pellet s 24 hr 30 TAKE ONE CAPSULE BY MOUTH EVERY DAY AT BEDTIME TAKE ONE CAPSULE BY MOUTH EVERY DAY AT BEDTIME SOLD: 05/08/2021 [facility] 120 mg 03/07/2021 12:00:00 AM EDT capsule,ext rel. pellet s 24 hr 30 TAKE ONE CAPSULE BY MOUTH EVERY DAY AT BEDTIME TAKE ONE CAPSULE BY MOUTH EVERY DAY AT BEDTIME SOLD: 03/07/2021 [facility] 120 mg 03/07/2021 12:00:00 AM EDT capsule,ext rel. pellet s 24 hr 30 TAKE ONE CAPSULE BY MOUTH EVERY DAY AT BEDTIME TAKE ONE CAPSULE BY MOUTH EVERY DAY AT BEDTIME SOLD: 08/22/2021 [facility] 0.4 mg 01/05/2021 12:00:00 AM EST capsule 90 TAKE ONE CAPSULE BY MOUTH EVERY DAY WITH DINNER TAKE ONE CAPSULE BY MOUTH EVERY DAY WITH DINNER SOLD: 01/07/2021 [facility] 20 mg 12/12/2020 12:00:00 AM EST tablet 30 TAKE ONE TABLET BY MOUTH EVERY DAY TAKE ONE TABLET BY MOUTH EVERY DAY SOLD: 04/25/2021 [facility] 20 mg 12/12/2020 12:00:00 AM EST tablet 30 TAKE ONE TABLET BY MOUTH EVERY DAY TAKE ONE TABLET BY MOUTH EVERY DAY SOLD: 02/25/2021 [facility] 20 mg 12/12/2020 12:00:00 AM EST tablet 30 TAKE ONE TABLET BY MOUTH EVERY DAY TAKE ONE TABLET BY MOUTH EVERY DAY SOLD: 06/03/2021 [facility] 20 mg 12/12/2020 12:00:00 AM EST tablet 30 TAKE ONE TABLET BY MOUTH EVERY DAY TAKE ONE TABLET BY MOUTH EVERY DAY SOLD: 12/12/2020 [facility] 20 mg 12/12/2020 12:00:00 AM EST tablet 30 TAKE ONE TABLET BY MOUTH EVERY DAY TAKE ONE TABLET BY MOUTH EVERY DAY SOLD: 08/14/2021 [facility] 20 mg 12/12/2020 12:00:00 AM EST tablet 30 TAKE ONE TABLET BY MOUTH EVERY DAY TAKE ONE TABLET BY MOUTH EVERY DAY SOLD: 03/17/2021 [facility] 20 mg 12/12/2020 12:00:00 AM EST tablet 30 TAKE ONE TABLET BY MOUTH EVERY DAY TAKE ONE TABLET BY MOUTH EVERY DAY SOLD: 01/18/2021 [facility] Rosuvastatin calcium 40 MG Oral Tablet ROSUVASTATIN CALCIUM 12/09/2020 12:00:00 AM EST tablet 90 TAKE ONE TABLET BY MOUTH ADELINE DAY TAKE ONE TABLET BY MOUTH EVERY DAY SOLD: 12/10/2020 [facility] Rosuvastatin calcium 40 MG Oral Tablet ROSUVASTATIN CALCIUM 12/09/2020 12:00:00 AM EST tablet 90 TAKE ONE TABLET BY MOUTH ADELINE RY DAY TAKE ONE TABLET BY MOUTH EVERY DAY SOLD: 08/14/2021 [facility] Rosuvastatin calcium 40 MG Oral Tablet ROSUVASTATIN CALCIUM 12/09/2020 12:00:00 AM EST tablet 90 TAKE ONE TABLET BY MOUTH ADELINE RY DAY TAKE ONE TABLET BY MOUTH EVERY DAY SOLD: 04/25/2021 [facility] rivaroxaban 20 MG Oral Tablet Rivaroxaban 20 MG Oral T ablet (XARELTO) Rivaroxaban 20 MG Oral Tablet (XARELTO) 12/04/2020 12:00:00 AM EST 20 mg Oral active PAF (paroxysmal atrial fibrillation) Take 1 tablet by mouth daily [facility] PAF (paroxysmal atrial fibrillation) Rosuvastatin calcium 40 MG Oral Tablet R osuvastatin Calcium 40 MG Oral Tablet (CRESTOR) Rosuvastatin Calcium 40 MG Oral Tablet (CRESTOR) 12/04 12:00:00 AM EST 40 mg Oral active Mixed hyperlipidemia Take 1 tablet by mouth daily [facility] Mixed hyperlipidemia 20 mg 11/24/2020 12:00:00 AM EST tablet 7 TAKE ONE TABLET BY MOUTH EVERY DAY TAKE ONE TABLET BY MOUTH EVERY DAY SOLD: 11/25/2020 [facility] 20 MG Oral Tablet Prednisone 11/24/2020 12:00:00 AM EST ORAL completed [facility] ([facility] ) Ramipril 10 MG Oral Capsule RAMIPRIL 05/22/2020 12:00:00 AM EDT capsu le 30 TAKE ONE CAPSULE BY MOUTH EVERY DAY TAKE ONE CAPSULE BY MOUTH EVERY DAY SOLD: 10/18/2020 [facility] Ramipril 10 MG Oral Capsule RAMIPRIL 05/22/2020 12:00:00 AM EDT capsu le 30 TAKE ONE CAPSULE BY MOUTH EVERY DAY TAKE ONE CAPSULE BY MOUTH EVERY DAY SOLD: 08/18/2020 [facility] Ramipril 10 MG Oral Capsule RAMIPRIL 05/22/2020 12:00:00 AM EDT capsu le 30 TAKE ONE CAPSULE BY MOUTH EVERY DAY TAKE ONE CAPSULE BY MOUTH EVERY DAY SOLD: 11/21/2020 [facility] Ramipril 10 MG Oral Capsule RAMIPRIL 05/22/2020 12:00:00 AM EDT capsu le 30 TAKE ONE CAPSULE BY MOUTH EVERY DAY TAKE ONE CAPSULE BY MOUTH EVERY DAY SOLD: 03/17/2021 [facility] Ramipril 10 MG Oral Capsule RAMIPRIL 05/22/2020 12:00:00 AM EDT capsu le 30 TAKE ONE CAPSULE BY MOUTH EVERY DAY TAKE ONE CAPSULE BY MOUTH EVERY DAY SOLD: 01/18/2021 [facility] Ramipril 10 MG Oral Capsule RAMIPRIL 05/22/2020 12:00:00 AM EDT capsu le 30 TAKE ONE CAPSULE BY MOUTH EVERY DAY TAKE ONE CAPSULE BY MOUTH EVERY DAY SOLD: 04/25/2021 [facility] Ramipril 10 MG Oral Capsule RAMIPRIL 05/22/2020 12:00:00 AM EDT capsu le 30 TAKE ONE CAPSULE BY MOUTH EVERY DAY TAKE ONE CAPSULE BY MOUTH EVERY DAY SOLD: 02/25/2021 [facility] Ramipril 10 MG Oral Capsule RAMIPRIL 05/22/2020 12:00:00 AM EDT capsu le 30 TAKE ONE CAPSULE BY MOUTH EVERY DAY TAKE ONE CAPSULE BY MOUTH EVERY DAY SOLD: 12/26/2020 [facility] Ramipril 10 MG Oral Capsule RAMIPRIL 05/22/2020 12:00:00 AM EDT capsu le 30 TAKE ONE CAPSULE BY MOUTH EVERY DAY TAKE ONE CAPSULE BY MOUTH EVERY DAY SOLD: 09/18/2020 [facility] 20 mg 02/29/2020 12:00:00 AM EDT tablet 30 TAKE ONE TABLET BY MOUTH EVERY DAY TAKE ONE TABLET BY MOUTH EVERY DAY SOLD: 10/18/2020 [facility] 20 mg 02/29/2020 12:00:00 AM EDT tablet 30 TAKE ONE TABLET BY MOUTH EVERY DAY TAKE ONE TABLET BY MOUTH EVERY DAY SOLD: 08/18/2020 [facility] 20 mg 02/29/2020 12:00:00 AM EDT tablet 30 TAKE ONE TABLET BY MOUTH EVERY DAY TAKE ONE TABLET BY MOUTH EVERY DAY SOLD: 11/21/2020 [facility] 20 mg 02/29/2020 12:00:00 AM EDT tablet 30 TAKE ONE TABLET BY MOUTH EVERY DAY TAKE ONE TABLET BY MOUTH EVERY DAY SOLD: 09/18/2020 [facility] rivaroxaban 20 MG Oral Tablet Rivaroxaban 20 MG Oral T ablet (XARELTO) Rivaroxaban 20 MG Oral Tablet (XARELTO) 02/28/2020 12:00:00 AM EDT 20 mg Oral aborted Take 1 tablet by mouth [facility] Rosuvastatin calcium 40 MG Oral Tablet ROSUVASTATIN CALCIUM 02/21/2020 12:00:00 AM EDT tablet 90 TAKE ONE TABLET BY MOUTH ADELINE RY DAY TAKE ONE TABLET BY MOUTH EVERY DAY SOLD: 10/08/2020 [facility] Rosuvastatin calcium 40 MG Oral Tablet ROSUVASTATIN CALCIUM 02/21/2020 12:00:00 AM EDT tablet 90 TAKE ONE TABLET BY MOUTH ADELINE DAY TAKE ONE TABLET BY MOUTH EVERY DAY SOLD: 07/26/2020 [facility] Rosuvastatin calcium 40 MG Oral Tablet R osuvastatin Calcium 40 MG Oral Tablet (CRESTOR) Rosuvastatin Calcium 40 MG Oral Tablet (CRESTOR) 02/20 12:00:00 AM EDT 40 mg Oral aborted Take 1 tablet by mouth daily [facility] 50 mg 01/17/2020 12:00:00 AM EDT tablet 10 TAKE 1 TABLET BY MOUTH NEEDED TAKE 1 TABLET BY MOUTH NEEDED SOLD: 10/31/2020 [facility] 50 mg 10/23/2019 12:00:00 AM EST tablet extended release 24 hr 180 TAKE ONE TABLET BY MOUTH TWICE A DAY TAKE ONE TABLET BY MOUTH TWICE A DAY SOLD: 09/18/2020 [facility] Amiodarone hydrochloride 200 MG Oral Tablet amiodarone (PACERONE) 200 MG tablet amiodarone (PACERONE) 200 MG tablet 03/17/2019 12:00:00 AM EDT 200 mg Oral aborted Take 1 tablet (200 mg total) by mouth daily [facility] cetirizine hydrochloride 10 MG Oral Tabl et Cetirizine HCl 10 MG Oral Tablet (ZYRTEC) Cetirizine HCl 10 MG Oral Tablet (ZYRTEC) 10 mg Oral aborted Take 10 mg by mouth daily [facility] Esomeprazole 40 MG Delayed Release Oral Capsule esomeprazole (NEXIUM) 40 MG capsule esomeprazole (NEXIUM) 40 MG capsule 40 mg Oral aborted Take 40 mg by mouth daily [facility] Insurance Providers Payer name Policy type / Coverage type Policy ID Covered green party ID Covered green party's relationship to crawford Policy [place] Plan Information [id number] [employer] [id number] 0 [id number] EBS RMSCO [id number] 0 [id number] RMSCO MEDICAL CLAIMS [id number] SP [id number] LIFETIME BENEFIT SOLUTIONS [id number] SP [id number] Rmsco [id number] 3 [id number] MEDICARE [id number] Joselyn [id number] MEDICARE [id number] Joselyn [id number] A MEDICARE [id number] MEDICARE A [id number] Self [id number] LIFETIME BENEFIT SOLUTIONS [id number] SP [id number] Lifetime Benefit Solution Commercial [id number] Self Lifetime Benefits Commercial [id number] Self Lifetime Benefit Solution Commercial [id number] Self [id number] LIFETIME BENEFIT SOLUTIONS [id number] 0 [id number] LIFETIME BENEFIT SOLUTIONS [id number] 0 [id number] UMR U [id number] Self [id number] UMR [id number] UMR [id number] Joselyn [id number] UMR U [id number] Self [id number] Umr Care Management [id number] 0 [id number] Umr Commercial [id number] Self [id number] UMR [id number] Joselyn [id number] Umr Commercial [id number] Self [id number] INSURANCE COVID-19 [id number] xOVID 2 [id number] INSURANCE COVID-19 COVID Joselyn C OVID Umr Commercial [id number] Self [id number] Umr Commercial [id number] Self [id number] Umr Commercial [id number] Self [id number] Umr Commercial [id number] Self [id number] Umr Commercial [id number] Self [id number] Lifetime/Rmsco Commercial [id number] Self [id number] [facility] UNAVAILABLE UNAVAILABLE EBSRMSCO LIFETIME BENEFIT SOLUTIONS PI PI EBSRMSCO LIFETIME BENEFIT SOLU [id number] Joselyn [id number] Lifetime Benefit Solution Commercial [id number] Self [id number] Lifetime Benefit Solution Commercial [id number] Self [id number] [employer] [place] Other 0 [id number] Self 0 UMR [facility] [id number] SP [id number] Lifetime Benefit Solution Commercial [id number] Self UMR O [id number] O [id number] [facility] Medig[place] B [id number] Self SELF PAY ONLY [id number] SP [id number] [employer] [place] Other 0 [id number] Self 0 UMR [facility] [id number] SP [id number] MEDICARE PI PI Medicare Medicare Primary [id number] Self [id number] UMR PI PI Problems, Conditions, and Diagnoses Code Display Name Description Problem Type Effective Dates Data Source(s) I48.91 Unspecified atrial fibrillation Unspecified atri al fibrillation Diagnosis 09/03/2021 06:27:18 PM EDT [facility] difficulty breathing difficulty breathing Diagnosis 09/03/2021 03:04:00 PM EDT [facility] I48.0 Paroxysmal atrial fibrillation Paroxysmal atrial fibri llation Diagnosis 08/10/2021 10:07:00 AM EDT [facility] U07.1 COVID-19 COVID-19 Diagnosis 08/06/2021 08:33:15 AM ED T [facility] I10 Essential (primary) hypertension Essential (primary) h ypertension Diagnosis 06/26/2021 09:11:00 AM [facility] R06.02 Shortness of breath Shortness of breath Diagnosis 0 06/26/2021 09:11:00 AM [facility] I48.0 Paroxysmal atrial fibrillation Paroxysmal atrial fibri llation Diagnosis 06/26/2021 09:11:00 AM [facility] I47.2 Ventricular tachycardia Ventricular tachycardia Diagno sis 06/19/2021 09:44:32 AM [facility] Z95.810 Presence of automatic (implantable) card iac defibrillator Presence of automatic (implantable) cardiac defibrillator Diagnosis 06/19/20 09:44:32 AM [facility] E78.2 Mixed hyperlipidemia Mixed hyperlipidemia Diagnosis 12/04/2020 12:21:[address] [facility] I38 Endocarditis, valve unspecified Endocarditis, valve un specified Diagnosis 12/04/2020 12:21:[address] [facility] I42.2 Other hypertrophic cardiomyopathy Other hypertro phic cardiomyopathy Diagnosis 07/25/2020 10:05:00 AM [facility] Z86.16 History of SARS-CoV-2 History of SARS-CoV-2 Problem 08/31/2021 12:00:00 AM EDT [facility] ([facility] Surgeries/Procedures Procedure Description Date Indications Data Source(s) OFFICE OUTPATIENT VISIT 25 MINUTES 08/30/2021 12:00:00 AM EDT [facility] ([facility] OFFICE OUTPATIENT NEW 60 MINUTES 08/14/2021 12:00:00 A M EDT [facility] ([facility]) 2018 NCOV AMPLIFIED <td>2018 NCOV AMPLIFIED</td> <td>STAT</td><td>08/06/2021 8:15 AM EDT</td><td> COVID-19</td><td> </td> 08/06/2021 08:15:00 AM EDT COVID-19 [facility] COVID-19 OFFICE OUTPATIENT VISIT 25 MINUTES 07/06/2021 12:00:00 AM EDT [facility] ([facility] EKG 12-LEAD - CMAXX REPORT <td>EKG 12-LEAD - CMAXX REPORT</td><td></td><td>06/26/2021 1:16 PM EDT</td><td> PAF (paroxysmal atrial fibrillation)</td><td></td> 06/26/2021 01:16:01 PM EDT PAF (paroxysmal atrial fibrillation) [facility] PAF (paroxysmal atrial fibrillation) EKG 12-LEAD - CMAXX REPORT <td>EKG 12-LEAD - CMAXX REPORT</td><td></td><td>06/26/2021 1:16 PM EDT</td><td> PAF (paroxysmal atrial fibrillation)</td><td></td> 06/26/2021 01:16:01 PM EDT PAF (paroxysmal atrial fibrillation) [facility] PAF (paroxysmal atrial fibrillation) EKG 12-LEAD <td>EKG 12-LEAD</td><td>Rout ine</td><td>06/26/2021 1:16 PM EDT</td><td> Shortness of breath PAF (paroxysmal atrial fibrillation)</td><td> </td> 06/26/2021 01:16:01 PM EDT PAF (paroxysmal atrial fibrillation)Shortness of breat h [facility] PAF (paroxysmal atrial fibrillation) Shortness of breath I & D Hematoma 06/03/2021 12:00:00 AM EDT [facility] ([facility]) OFFICE OUTPATIENT VISIT 15 MINUTES 06/03/2021 12:00:00 AM EDT [facility] ([facility]) OFFICE OUTPATIENT NEW 30 MINUTES 05/25/2021 12:00:00 A M EDT [facility] ([facility]) OFFICE OUTPATIENT VISIT 15 MINUTES 05/15/2021 12:00:00 AM EDT [facility] ([facility] OFFICE OUTPATIENT VISIT 15 MINUTES 04/05/2021 12:00:00 AM EDT [facility] ([facility] PERIODIC PREVENTIVE MED EST PATIENT 66YRS&> 04/05/2021 12:00:00 AM EDT [facility] ([facility] Transcanal Incision Of Inner Ear 01/22/2021 12:00:00 A M EDT [facility] ([facility], ) EKG 12-LEAD - CMAXX REPORT <td>EKG 12-LEAD - CMAXX REPORT</td><td></td><td>12/04/2020 12:07 PM EST</td><td></td><td></td> 12/04/2020 12:07:09 PM EST [facility] EKG 12-LEAD <td>EKG 12-LEAD</td><td>Rout ine</td><td>12/04/2020 12:07 PM EST</td><td> PAF (paroxysmal atrial fibrillation)</td><td></td> 12/04/2020 12:07:09 PM EST PAF (paroxysmal atrial fibrillation) [facility] PAF (paroxysmal atrial fibrillation) Binocular Microscopy 11/24/2020 12:00:00 AM EST [facility] ([facility], ) Results ID Date Data Source [id number] 09/08/2021 01:36:53 PM EDT [facility] Name Value Range Interpretation Code Description Data Kaylen rce(s) Supporting Document(s) Discharge Summary [facility] THEFLe4hLcBEGgCb18/QRUuqHZSvr8ByBHltAGp5VZtiDUFiX2QmFHM9aM6pMJN0BIkYCdOkLsCdEIY2 lbm [file] 7z6Xs+Spbmb/paSeg57jvfO/dSWNfw38njH1ozvL0pY3U/GMVxHL3+++ZnUaXRi5+Rosa Isela/8oudhdY9+8dv [file] ICAgICAgICAgICAgICAgICAgICAgICAgICAgICAgICAgICAgICAgICAgICAgICAgICAgICAgICAgICAg ICAgICAgICAgICAgICAgICAgICAgICAgICAgICAgIC AgICAgICANCiAgICAgICAgICAgICAgICAgICAgICAgICAgICAgICAgICAgICAgICAgICAgICAgICAgIC AgICAgICAgICAgICAgICAgICAgICAgICAgICAgICAgICAgICAgICAgICAgICAgICANCiAgICAgICAgIC AgICAgICAgICAgICAgICAgICAgICAgICAgICAgICAg ICAgICAgICAgICAgICAgICAgICAgICAgICAgICAgICAgICAgICAgICAgICAgICAgICAgICAgICAgICAN CiAgICAgICAgICAgICAgICAgICAgICAgICAgICAgICAgICAgICAgICAgICAgICAgICAgICAgICAgICAg ICAgICAgICAgICAgICAgICAgICAgICAgICAgICAgIC AgICAgICAgICANCiAgICAgICAgICAgICAgICAgICAgICAgICAgICAgICAgICAgICAgICAgICAgICAgIC AgICAgICAgICAgICAgICAgICAgICAgICAgICAgICAgICAgICAgICAgICAgICAgICAgICANCiAgICAgIC AgICAgICAgICAgICAgICAgICAgICAgICAgICAgICAg ICAgICAgICAgICAgICAgICAgICAgICAgICAgICAgICAgICAgICAgICAgICAgICAgICAgICAgICAgICAg ICANCiAgICAgICAgICAgICAgICAgICAgICAgICAgICAgICAgICAgICAgICAgICAgICAgICAgICAgICAg ICAgICAgICAgICAgICAgICAgICAgICAgICAgICAgIC AgICAgICAgICAgICANCiAgICAgICAgICAgICAgICAgICAgICAgICAgICAgICAgICAgICAgICAgICAgIC AgICAgICAgICAgICAgICAgICAgICAgICAgICAgICAgICAgICAgICAgICAgICAgICAgICAgICANCiAgIC AgICAgICAgICAgICAgICAgICAgICAgICAgICAgICAg ICAgICAgICAgICAgICAgICAgICAgICAgICAgICAgICAgICAgICAgICAgICAgICAgICAgICAgICAgICAg ICAgICANCiAgICAgICAgICAgICAgICAgICAgICAgICAgICAgICAgICAgICAgICAgICAgICAgICAgICAg ICAgICAgICAgICAgICAgICAgICAgICAgICAgICAgIC AgICAgICAgICAgICAgICANCjw/dIQfJ0lurZEpurM2V4qsQp7RYb1MAS1ky7ZiGWZsRImgaeQhPtlBQn CnEZSxTrcQQkd1NFybAD0StFTpB2StR3ZcZTehDI0DDWFnLMRspVCyBKEvKVZvHuV2MIKzDRxkBQ7AkT RzIFsgNSAwIFIgNyAwIFIgOSAwIFIgMTEgMCBSIDEz VSTdUgNkYKBlNPJqGYivVVCNRA8ZRkQlN7NyjY33SYbLGc3+TUjpqhXkLjyAXjMmDDHmw1VrJMs9PM1Z PZFgAvhyc3FfEPYpSOJZNYrwLL6QJKX7SJW5GPMsOu2BREBmM573olVrJB8JXt1EYwGuOW5ezh4DHJAp VQOxAqhIDiv8CAdnPS3TvPUiXXsRoAXrkYKnQ6WbM5 JblDTjxCQlrAVROWG8tBNLTNFrt9YhMPOXMmLGQPE8UZDnLzCjOjYlKQIiYMavONZGOJpWGlCxM0Oux9 AiFaV1WRImFiElKDrfQKKsTKmoNM77nMawOD9ODMNrXFPwOC54AISeMIWtJe3NSu7XPfUcES2daw9MAE ZfVADnYalWCbo2MIviUM7IoYHkO9TomJEmo8tPKiYh T1LNTHLeDKRqYq2ZJKLxCzMvQEYbYJekIR4yBVOrNTCVcEswqaY5MU5HVG5ebiDaXF6JTkPrZr4tLw3P WbYtG6HoR5EpJSXySUZWCHbxAK3ETCneOZ6bAM0Bb3QLfRLdoX7ewc1PNMGsTTKrMvlltj7KYvjuT4Y3 cIilBSKeGPFzTZPILQcgYU9HHCFbKNN4BYU4JzKeJA NKZrBaQ91lCR5SB2Fha94uNfQ6VPZzMgTpORhoOE01pYcizqAbsBApnCxlPM9SFc6+DQplbmRvYmoNCn ozOUPKPdInSSYGCiPnHRCtNXGkTBJrWiB4VaIqFx7BHGCaCNUyCHYyNrDeWJYaCWXzMJvgPOGaTVG9Ln WaWFNaGXOxWW7BEdQjXEUsAIQvOUUpWCWwDMYboe0C POMkRVTxXTO9BdQrKIVaIMLmFGxtFOCiSUD4PQL4MQDaJSWeLC2HHsGyTXUwRHH6CTQrDGBqUSEdrf6F UFItKTQoTDUlCxKdFTZiTYOpRCbbBNQzUVU9QIH3ZNOsYLNaNP7CVdPkRYBpTHCxYAQsHNBlHYEzzm3Q BENcEHEfMCMqFYWsQNYaUTKpXOuxYWQfDCG4AOlvLT CfDRRjXT2PRaDaMXTdJUxyRunwMYHgQGPxjo8KTMIkIAGsMTR5SoYbHUEeZRVoSBpaWDYbWUKkYvKnAI MzJWIoFX9BOiZkFNSpIqV2NmWsLVZlLRCfpo8RFGBqPQYbIdXxTHSxWAOhIYMfSCpdXRWbEMV9DpiiZJ KzZDBaRN0NWmFsTPNpAhZ3ZTnrWFKwOBQlsb4DGEEl OVJyKnJ5CWCoKPFxDJCsMEoqLMXxHTJ0QzW3KATeRQIfKB5YKlWgSQQnBpZ9NcdpDLFdGFCknv6WKTFd THZeKpe8OiHfMDMiLKCiHQhyISPzJEB2OUo7UQRaKSIxWS4NDjZjYBKiVtttGyeyLGAbFMKsjf3PWRXe PHCiQNGaIxQsWLShEUXbCPfjMXDlOCP1DxI4PAMbZA HeTM5YVeRbGOToUmy3SpCjEVNnLDLlsx7NJNGkIUAwPBX6BxIxPEEuZLTcKVxuMRTfZOBmUbpmSSShSJ AaVG1JWeWjXQDhJyG5GaCkDDMbEBXkjf0KIWCtIYKzJXurIqTwYXUgGKEwBOgrAGRtECGxQZKyCXPpBD KaUB5CNjZmLGQdAeXbBiVwIHCxIEVwkh6EAJYqSDPz KwS5PjNyVVIuDJTfGAywTJNfRHY0OxmoSYAeBWCsTR7GMjZdSBAyKac9XIUbWJYhVCPval4TJXRqCGVw Qdl8YMKcKHChKYRmYObtBJCbDQU1VWoaRWHcZBOcHI6MFdHgSUQuDzi3VoLjORAdMCVadq6DGRDnOHOe ISKkOCDhLCNtJGQoWIabXDZcWXL2OjRbHPYkIJTeHV 6PEhIpODAgFvj6QzSgEOYpAMMfxa8TOMKvLAQ8BZS6ADSaPXIdJTKgPKecDAKkQQGdFpO1PRVlLITyHV 8IYyCpMWBnOAD2ApelYWUeKEAcse2CmYImiKtjtk5BIGaMDe5WqTdpSNO3CQugMg8dvRV1IDNsMESAFi 6KwgFyHVSkQDWBTHhmAJQqIEWuMKB3VWNnReArRFHa KZO1XlRwCbWxZeU1AAM8NYd4OyF4UPQ4JEymDQQnJGPkD8C6FHc9GkZlJUJeEtFmZAP3OZd+FF9hFCp+ Ou0Km7ExcjZ5jaXwSPj3RPzwAl0ZKNNWF6DSAq== ID Date Data Source [id number] 09/06/2021 06:21:17 PM EDT [facility] SOFT TISSUE HEAD AND NECK [id number] RESULTInterpreted by:Jenny Isaacs MDINDICATION: 76-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 Evaluate with Doppler.TECHNIQUE: Ultrasound redmond- scale and color doppler images of the thyroid were obtained.COMPARISON: CT thorax dated 09/03/2021.FINDINGS: Limited exam due to techniqueThe right lobe is heterogeneous in echogenicity, measuring 3.7 x 2.1 x 1.3 cm, corresponding to a volume of 5.2 mL.The left lobe is heterogeneous in echogenicity, measuring 3.9 x 2.2 x 1.3 cm, corresponding to a volume of 5.8 mL.The isthmus was not well visualized.Bilateral thyroid Doppler flow is appreciated. Decreased vascularity was seen bilaterally.IMPRESSION:1. Hypovascular thyroid lobes bilaterally. 2. No nodule was seen.This document has been electronically signed by Pola Vines MD on 09/06/2021 6:19 PM Name Value Range Interpretation Code Description Data Kaylen rce(s) Supporting Document(s) ID Date Data Source [id number] 09/06/2021 12:37:56 PM EDT [facility] Name Value Range Interpretation Code Description Data Kaylen rce(s) Supporting Document(s) ED Provider Note [facility] ALTGBk1oKqUSVqHo52/JDUlwHFVsd7SeWCyhPCm5IPmjXYJoF4GfCYU5sA5nXBE8DUwPIlWbLwMkKCP4 lbm [file] NQOsD8EjJzJeCF9JSz8GFcI7TJS3mUEbFv8WXMo0OPmCJfGdFQ2RQLa= ID Date Data Source [id number] 09/06/2021 05:06:07 AM [facility] Name Value Range Interpretation Code Description Data Kaylen rce(s) Supporting Document(s) Triiodothyronine (T3) Free [Mass/volume] in Serum or Plasma 3.78 pg/mL 2.00-4.40 [facility] ID Date Data Source [id number] 09/06/2021 05:06:07 AM [facility] Value Range Interpretation Code Description Data Kaylen rce(s) Supporting Document(s) Thyroxine (T4) free [Mass/volume] in Serum or Plasma 2.83 ng/dL 0.93- 1.70 H [facility] ID Date Data Source [id number] 09/06/2021 05:06:07 AM [facility] Value Range Interpretation Code Description Data Kaylen rce(s) Supporting Document(s) Thyrotropin [Units/volume] in Serum or Plasma 0.270-4.200 L [facility] ID Date Data Source [id number] 09/05/2021 04:29:52 AM [facility] Value Range Interpretation Code Description Data Kaylen rce(s) Supporting Document(s) Leukocytes [#/volume] in Blood by Automated count 9.1 10*3/uL 4-10 [facility] Erythrocytes [#/volume] in Blood by Automated count 3.84 10*6/uL 4.6- 6.1 L [facility] Hemoglobin [Mass/volume] in Blood 12.1 g/dL 13.5-18 L [facility] Hematocrit [Volume Fraction] of Blood by Automated count 36.5 % 4 1-53 L [facility] Erythrocyte mean corpuscular volume [Entitic volume] by Auto mated count 95.1 fL 80-96 [facility] Erythrocyte mean corpuscular hemoglobin [Entitic mass] by Automated count 31.6 pg 27-33 [facility] Erythrocyte mean corpuscular hemoglobin concentration [Mass/volume] by Automated count 33.2 g/[facility].0[facility] width [Ratio] by Automated count 13.9 % 11.5-14.5 [facility] Platelets [#/volume] in Blood by Automated count 280 10*3/uL 150-400 [facility] Differential cell count method - Blood [facility] Neutrophils/100 leukocytes in Blood by Automated count 70 % [facility] Lymphocytes/100 leukocytes in Blood by Automated count 15 % [facility] Monocytes/100 leukocytes in Blood by Automated count 15 % [facility] Eosinophils/100 leukocytes in Blood by Automated count 0 % [facility] Basophils/100 leukocytes in Blood by Automated count 0 % [facility] Neutrophils [#/volume] in Blood by Automated count 6.28 10*3/uL 1.8-7 .0 [facility] Lymphocytes [#/volume] in Blood by Automated count 1.41 10*3/uL 1.2-4 .0 [facility] Monocytes [#/volume] in Blood by Automated count 1.39 10*3/uL 0-0.8 H [facility] Eosinophils [#/volume] in Blood by Automated count 0.04 10*3/uL 0-0.5 [facility] Basophils [#/volume] in Blood by Automated count 0.02 10*3/uL 0-0.2 [facility] Nucleated erythrocytes/100 leukocytes [Ratio] in Blood by Automated count 0 /100{WBCs} 0-0 [facility] ID Date Data Source [id number] 09/05/2021 04:50:[address] [facility] Name Value Range Interpretation Code Description Data Kaylen rce(s) Supporting Document(s) Bicarbonate [Moles/volume] in Serum 23 mmol/L 22-29 [facility] Chloride [Moles/volume] in Serum or Plasma 99 mmol/L 98-107 [facility] Creatinine [Mass/volume] in Serum or Plasma 0.95 mg/dL 0.70-1.20 [facility] Glucose [Mass/volume] in Serum or Plasma 91 mg/dL 70-140 [facility] Potassium [Moles/volume] in Serum or Plasma 4.3 mmol/L 3.4-5.1 [facility] Sodium [Moles/volume] in Serum or Plasma 133 mmol/L 136-145 L [facility] Urea nitrogen [Mass/volume] in Serum or Plasma 18 mg/dL 8-23 [facility] Anion gap 3 in Serum or Plasma 11 mmol/L 8-15 [facility] Osmolality of Serum or Plasma by calculation 277 mosm/kg 275-300 [facility] Creatinine/Urea nitrogen [Mass Ratio] in Serum or Plasma 19 [facility] Calcium [Mass/volume] in Serum or Plasma 8.4 mg/dL 8.8-10.2 L [facility] Glomerular filtration rate/1.73 sq M pre dicted among non-blacks [Volume Rate/Area] in Serum or Plasma by Creatinine-based formula (MDRD) 79 mL/min/1.73m2 >60 [facility] Glomerular filtration rate/1.73 sq M pre dicted among blacks [Volume Rate/Area] in Serum or Plasma by Creatinine-based formula (MDRD) >60 [facility] ID Date Data Source [id number] 09/04/2021 08:42:26 PM EDT [facility] Name Value Range Interpretation Code Description Data Kaylen rce(s) Supporting Document(s) Consultation [facility] UVSWXw7xMhXWXvLw78/VOBvvLFZnx0ZsQKevTRq1OOndQIPeF6XjHHF5dJ7tZEH8YInRUgUvJzTjIHEj lb [file] AgICAgICAgICAgICAgICAgICAgICAgICAgICAgICAg ICAgICAgICAgICAgICAgDQogICAgICAgICAgICAgICAgICAgICAgICAgICAgICAgICAgICAgICAgICAg ICAgICAgICAgICAgICAgICAgICAgICAgICAgICAgICAgICAgICAgICAgICAgICAgICAgICAgICAgDQog ICAgICAgICAgICAgICAgICAgICAgICAgICAgICAgIC AgICAgICAgICAgICAgICAgICAgICAgICAgICAgICAgICAgICAgICAgICAgICAgICAgICAgICAgICAgIC AgICAgICAgDQogICAgICAgICAgICAgICAgICAgICAgICAgICAgICAgICAgICAgICAgICAgICAgICAgIC AgICAgICAgICAgICAgICAgICAgICAgICAgICAgICAg ICAgICAgICAgICAgICAgICAgDQogICAgICAgICAgICAgICAgICAgICAgICAgICAgICAgICAgICAgICAg ICAgICAgICAgICAgICAgICAgICAgICAgICAgICAgICAgICAgICAgICAgICAgICAgICAgICAgICAgICAg DQogICAgICAgICAgICAgICAgICAgICAgICAgICAgIC AgICAgICAgICAgICAgICAgICAgICAgICAgICAgICAgICAgICAgICAgICAgICAgICAgICAgICAgICAgIC AgICAgICAgICAgDQogICAgICAgICAgICAgICAgICAgICAgICAgICAgICAgICAgICAgICAgICAgICAgIC AgICAgICAgICAgICAgICAgICAgICAgICAgICAgICAg ICAgICAgICAgICAgICAgICAgICAgDQogICAgICAgICAgICAgICAgICAgICAgICAgICAgICAgICAgICAg ICAgICAgICAgICAgICAgICAgICAgICAgICAgICAgICAgICAgICAgICAgICAgICAgICAgICAgICAgICAg ICAgDQogICAgICAgICAgICAgICAgICAgICAgICAgIC AgICAgICAgICAgICAgICAgICAgICAgICAgICAgICAgICAgICAgICAgICAgICAgICAgICAgICAgICAgIC AgICAgICAgICAgICAgDQogICAgICAgICAgICAgICAgICAgICAgICAgICAgICAgICAgICAgICAgICAgIC AgICAgICAgICAgICAgICAgICAgICAgICAgICAgICAg TLAdLEDaWQVbZKLuMXRrIZIwANQsUJOyMXa5Z8psRIEbRQZeNG0nLAw4Ml6+UDhANtIzOTO3ulPznZ9R WG2bt8MrYZkiBROpq2EpVPb6BO9GAFYnLCmfKN2RBYitjv7NPTSjDHXwfDAMg5gaMlFcFUT5ESFcDrqt AN6VRRLyO7fgywGqZANsAJKAFEwkHWWVSNuaRJDOEG PcVUMiKzEzWgVwELAsHSMqVOXQCL3CMhNwY5OifS86ZPFQUg3+JUkwttDxYuaEQdH9EIMil7PvONw6UJ 1BJMWrIkmuk2DeHpPdBUMFWTxhIH3WSOE2ISY1ATFnQz4EMIBsE891qjZxEO8URd9KUjOyKP2iqo0OXg NbPLLwBnsQOso7LNtjWS5OiLGvRTiMw78lmEk0dbDb dNDKEUjrcQSVlYMuTJdsUQFCYvGfxCUiRU5kZtChVrHgHGI2YvSmPC0eWTyoPP0YCRE3MVndXMRuMMTm L3fOWbXxCLK8BrDvfZioKU8FYgQjU6DdrvOmtLElBMPaDZUQRi8+RMmguzIwLlaDJhA4WEBuu0LiFRd3 LK5YUMZrPMwhID1HLJHroM4kLHusVR8RJsWgUvIuIV OMBlUcK55grIAsPOo5U7TdLnMiMLCbXiqwULLaCEraYhZsWWUuRjNiBBiwQW9+ID4+SOlxYL4QWAjiyk WwMYUpUc2YRDWdSKAzAX8yZIFcZHCeT1P3mJjiCYNOVzGoE1fckrqhGZ2pMLFfF633qNpoakHsQJD3TI OfUq3YYEOyZRZ0KGOncFOzXyRvYTZNQCibNC9KqJNd QMH2xD2zIMrpOIBpXSMwT2nNQtBcpKwwRM50kGbyddDlxWVoTNo+As1JDM1eo6XuVId3qfCpSBhjLPZ6 IGubDTGjQZWlCSCgHLM6KNX9MSYQMoDqFHJuYLWkLRmaUYOjSOKkfs4BFMPbEEWuVEQ6VvCfQVTvXNBh KXfgCIOpXEM0FMW9VXEhBITcFQ3MYcVnRIVrMUCnAB rhDBSdRDDhzp0DBJQtEIZzWTSnTXUeJQKaSIPwCUeuMAMtUYR9TnOwTTEqRKSxDB1JElLkEZQjFQX3KT KmMLIxNLSldz3WFRHrUMYsMxzjFYYjYKTdKNBlFUdaJXNcFKS6SvK4SZXdTKOzTE1YXbCeISWpBZh1GV JhTUQwJXCgnb2MDREkZCJcBuK3PTWxRFAkKLAyMJue BVCrOPBcNXy7RUVcQMFpTC6XRyUmNEBzHSJ1XLWxJOYlFJZcki5PINCvRNGkFhO1PGGuALTfFOQiYCgg WOTkRUK9TUA4ZQAsPTKfSA7ZQqIyBDVgANh4LwYuZXVuYSJvpn5GVYOkHBPdSBY3XZFtVUMsLLZoMKka PEBtAUS9MqmwBWEkGAQvPV2NQoJnWDDmEXg2DsOmWD MqZGBrig6HATKlKESpBCmtIMQzAVEqUYShTTrrMCTmNDBbTHV9KSVxBGFtYB6FKgZuSDVuCwCaSZZiVP JpEIOxow6PZEDtOHMfCAZ9JFNgZORiZEKgHVywFUBvJJPyFCegXVSgTKYoYP1XFtIvIXNhZwR4IHNuPD HlCYRjwo2EEUXzKLPqQoPxULKdCROrWEPdLHsyVABj YHMxTyM0HQExFUOkWV0OWfMjGTEhBdH7QtWrQGLfUSVnyr2DVYOgNSYpSwvsQKQiAILoGIMqQLukRZUa EILoCKKtGZJqQPPrBK9CVfVsWQUvVlW4QWQbFYExRRZajc8MKHQiWDKaAJS2QfHzJWZrVQVnFImiPKIa UDN7GmJqGFNsQJZoSD0VLtEeMFKaWrD4RCHwFVNmXM Gnfk5BURMwGTXbGkR5TALsWNXdPYVeYImpSYIrDNT4AtX9OBUiTAAgPF9BMnMnFPHyLwoiRdxhIXQxFZ Aets5MeWSbyBplsd0UQHpHAz6SqFrsDZD1ZCzqKh2gtCZlXuJdMFCKRh9FijQcVFLuEGIWRQybUTDwEF f0GqFzQAOzEmyyQLZ3AUxaCfbyVFM5PfEgMtH0FXC0 OlJ6DwM0FLM3GSBuVRA1GCQpRRNqZEUrEvcyCiRxDTG5XXg+DY1nWVq+Zp0Kz3YlzjO1gtIaQTniJcLw [id number]== ID Date Data Source [id number] 09/07/2021 01:06:35 PM EDT [facility] Value Range Interpretation Code Description Data Kaylen rce(s) Supporting Document(s) Thyrotropin receptor Ab [Units/volume] in Serum 0.00-1.75 [facility] (NOTE)Performed At: [address] [id number] Hernandez MD Ph:[phone] ID Date Data Source [id number] 09/06/2021 05:06:15 PM [facility] Value Range Interpretation Code Description Data Kaylen rce(s) Supporting Document(s) Thyroid stimulating immunoglobulins [Units/volume] in Serum 0.00-0.55 [facility] (NOTE)Performed At: [address] [id number] Hernandez MD Ph:[phone] ID Date Data Source [id number] 09/05/2021 10:40:53 AM [facility] Value Range Interpretation Code Description Data Kaylen rce(s) Supporting Document(s) Thyroglobulin [Mass/volume] in Serum or Plasma 13.6 ng/mL <35 [facility] (NOTE)Note: High Biotin intake may cause falsely low results.Interpretation: If Thyroglobulin Antibody results ">2.3 IU/mL",Thyroglobulin testing via LC-MS/MS should be ordered, which is a send out test ([facility] Test Code:815122).Test performed on [employer] Access 2 using immunoenzymatic immunoassay technology. ID Date Data Source [id number] 09/05/2021 10:40:53 AM [facility] Value Range Interpretation Code Description Data Kaylen rce(s) Supporting Document(s) Thyroglobulin Ab [Units/volume] in Serum or Plasma <2.3 [facility] (NOTE)Note: High Biotin intake may cause falsely low results.Test performed on [employer] using immunoenzymaticimmunoassay technology. ID Date Data Source [id number] 09/04/2021 07:01:52 PM [facility] Value Range Interpretation Code Description Data Kaylen rce(s) Supporting Document(s) Erythrocyte sedimentation rate 44 mm/hr <20 [facility] ID Date Data Source [id number] 09/04/2021 01:54:[address] 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 Name Value Range Interpretation Code Description Data Kaylen rce(s) Supporting Document(s) [facility] PDBJTl2sIgMCQuAhm1ErUaJvDUNlZH8bckz9T4A0sKNjC3DttRVeu9ndL1KnH9TjMJNeBGEHLE8OpBFd jb2 [file] kdA09GaAIytkgBc2HrThjzSodLo6Jaua1+registration scheduling specialist+mx3/rv/6h6VF+lmtY2VqLX2JeF3RKPyG5ex0b8zIgFY [file] Luis M+k+5k54vqYVhU05NFiUreR20F3BFvy8IFvkoxTSOidg8Y7RFme8irS2qQ9jwNYoDolkorV7K3+kQ7 h7J7/q2SwwtxtQ66Ff8tHMyQshdVeX5iw5LPxRZh/Upy6XMztfsYDLomrz95jEBuKRta1so/MuMRwGw9 DaaPQBuriBegAzv9XDIZq1ZS2rjIZuaiPV2eHbh6HK RKHyy387o5wSf1E59e8gVtP37bvjV+7GHaug3hITnmqssuAICKS3LaJIP3maBt8S12y976zuxcfGC8mP VrGFYn9NJgsZ+ZXBd4it3TC3TL17YWb1ZQopjVug202EiJ2M7uo4fxGDJ0EiWHwyqR9rovvYZ2dooblu 9Y/hnkit/wjuuXocH+Wn/GBOocptLwnthKLsW1y70N [file] 07X6x2M6m5C3qw+48fn3/o0cr7b1078+mLr/7hqy8+wkd3r72/8+sg39210+2r4V9/8zXJm2411jN//r nNL36fgbNlb+//i+pL9Pc3//Dp+02wkil4/avNX/3w xS8//gzai392ywc68efjEL7+ffG//xd/Oyji/N1gbcmqi2z0d/Xd599/+hK3/zrh49t/kF7Qq932nR20 eKV8Vp+/+y+qOTCfd//1px9++Vqh79ajjkndInSS17bYy2/+9PmXP/a7TX8Yk81+4s9/+vff/+WPv/u3 j//+vz5+8/s//OG3f/rM1453z8/7+PK3f/r97/7w8S //rax/+duPP//ddtrA9thnxzYM4l94fwUh/+zoRb1HC72njh/xjz//C80kVnTZ5Wyy//dp2lvB5CG1/v zy/xWtWwBXu//++fspWueGyXPth6/0PDtbtUtgZh00/PJLUa/X/DOzV91g8dbt3+5yoh1/Q3/91902dl Dprc8+Pr77/Ndff/wfX3/+enQ/wz7ctgjQq5Ku/+Jevon q96M9iPLMT8+28TkhQq0gLTFD9slekPAjCx1la/+9J9///GX3/4f850xw34zB1Y67/zpj/qU/NTU/W8/ dBzO187/8fs//efv/vL//HZwAJg126itqPv6ZzQ+Wn0o//H7Hz7+7X+8mv77P//pp/Z41vdb9D5miw0n f/z5P/74r/ge16Iog8Z3uZRuEuh70BKBdjip2y+2TO WqqvPxeXU/7ber+u5n3//sx4/f/s/f/kavnyx6znTwQ9Th4+17jYX/9Zd/+duf/DsexK9++4p2j0xqwQ /89n/862//4/e//dNPzo+envb7P/30/Tq0GM3S//2vz71d+P2f//sEnk0mB7JMkS5962/8fXt8j12cXj P5P/7uX/+wood cut 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/3+X1/N++j7NsyQw7k61kJ180/+w8fX 379yf0CtexSt/cd/yhmsi278b8r/+JeYN9KmC//0H950lUF++ExngscDyv7//nKMKfuYnMa/++3/+buP 8vHnf/88JjfjSJ49orcxDHm1WM67zinhnVFlus5m60xDJm8rt2/wt9+/vjOffXgKercRPv/ii29//c3r q0wKkb0H4gon/j+SDHPwLgBdXCT8zwDnbOmogiRjIw qEGKkcAXDwVdw0FJ9FpPQqKRYwJ0D6YTBaux2fEOSwYVMueSWnMfMxEGBUWO8YzXRmSW2SDGn5CKOuRD OfVkFgWDLtneJ4GKLsTGMfRITuE0TudpShiAFjESToBf6+NB6qo9AoYvZxEELbHme1XN9XcZRcMO3UjP NmnM3gdaTiU882ydDeFZUzEjrdg3SaUXjcZYURNJ1Y ANJ3XJX5DNJaCn2+QO9hx9XkCuGoQOZaCom9BK4SwCUnc3PcFZ1PI9AaLXRhAMRXCAN8m9NeHFWixlgd wcplJ1CpUDN0wA0mMDB4SDTeOUcdEXQwWHPxLsL1PBYrROqlJXXxTSDbQLMvBPIkNOa4sYZuWJ2TQ9Wa EXXsMHEDSBJcjuWdNq7pWOKDZ6SgDC6JY6kCWStvYz qcGSfpNXwyI5P2DsddQ9VmEH4RO4IdEEKuPVVRGFRcbtGlXH7VbjUmkY8aVRoGNAGGOYrPCUliRwF2v8 4hauWBNTOoSTMkNGmzKSOlYXBxFMHlFGOkRKPuZQAfICLoBW9FK7HdIUXiLFWAJFH1e8OzYUKxkzowyc cjLt8njbIuGgp+MxoeWZJum3UrPZwjS8V0zNSqS2Us C4ClQK7HgGQsIXfvOVAmIGIwFAVjX761prTyPP0+IA9ck6LtBoovXAADFOAxLTZaSZVzZAK2VsMzZRTx GZVaFRUlBdS5FqNiAxYEOTNeMEP8MfA4EwNpRKKbUQLfFRwyJWQfQXg0UIXxERJsCCKoIE9sPfPuNORk GmU5ODFfCTZkQHPhfaFLSVVgJEHmKQSkWZS3BLCjHU TqRZflOGDvDQMzJDS2YAGhFFZzDY1tGsLbHANbIMDyYkriAQApDWLtkxWFOBFiLBQpTJK9FaXbWJSpZM JjTJxuQMKxSLYdRip9VOIpTTCoXD0iVlPvFCWtURQ3UFhoJZAeOVLabzIXERKjDYTtXGGfNpXyTOFwBI IfEDloDWKcHQJpXrWlPHSwBWLiMK7eDwGhNJDlENV0 PXNiPLIzHRSxbqMOTKGtLWHaLIf2ZDBuSZLiHTZbZOneKLRaBQNqVRT6UHIvWIWaOE1vHsAvEPVcNOAa NSNfNEWfKNKrunDYUGTfIFKtLHX4IVPeLHDhKWSmFWbyBWNxRJPrCvy9ASVyHPCqWE2rGkTpCKJyCYJ2 PUYuWHXoVYMrntNOSHWyCAQ4DclpGvKdVDSsGDViKL wsITAyYXOqEmZ6UVYtCVHnTA8vIgEeSMIlGUW5JzXkJVDiMIPhbxINYIXiOQCwHRL5FsItAHQzESJeCA riUYAaJEBhQIWsIQQ1NSY1VQSzVsTiORlfTLYATEtTC2QsjmPfRmTLL8ozEh0pSwTgLAFBW9Zft6PnMN AwIFIKCj4+DgP8SBS0kQTuCiw1FwFsAwkqNFUHJr== ID Date Data Source [id number] 09/04/2021 04:24:43 AM EDT [facility] Name Value Range Interpretation Code Description Data Kaylen rce(s) Supporting Document(s) Leukocytes [#/volume] in Blood by Automated count 8.3 10*3/uL 4-10 [facility] Erythrocytes [#/volume] in Blood by Automated count 3.83 10*6/uL 4.6- 6.1 L [facility] Hemoglobin [Mass/volume] in Blood 12.2 g/dL 13.5-18 L [facility] Hematocrit [Volume Fraction] of Blood by Automated count 36.2 % 4 1-53 L [facility] Erythrocyte mean corpuscular volume [Entitic volume] by Auto mated count 94.6 fL 80-96 [facility] Erythrocyte mean corpuscular hemoglobin [Entitic mass] by Automated count 31.8 pg 27-33 [facility] Erythrocyte mean corpuscular hemoglobin concentration [Mass/volume] by Automated count 33.7 g/dL 32.0-36.0 [facility] width [Ratio] by Automated count 14.0 % 11.5-14.5 [facility] Platelets [#/volume] in Blood by Automated count 257 10*3/uL 150-400 [facility] Differential cell count method - Blood [facility] Neutrophils/100 leukocytes in Blood by Automated count 63 % [facility] Lymphocytes/100 leukocytes in Blood by Automated count 16 % [facility] Monocytes/100 leukocytes in Blood by Automated count 19 % [facility] Eosinophils/100 leukocytes in Blood by Automated count 1 % [facility] Basophils/100 leukocytes in Blood by Automated count 1 % [facility] Neutrophils [#/volume] in Blood by Automated count 5.33 10*3/uL 1.8-7 .0 [facility] Lymphocytes [#/volume] in Blood by Automated count 1.29 10*3/uL 1.2-4 .0 [facility] Monocytes [#/volume] in Blood by Automated count 1.61 10*3/uL 0-0.8 H [facility] Eosinophils [#/volume] in Blood by Automated count 0.04 10*3/uL 0-0.5 [facility] Basophils [#/volume] in Blood by Automated count 0.04 10*3/uL 0-0.2 [facility] Nucleated erythrocytes/100 leukocytes [Ratio] in Blood by Automated count 0 /100{WBCs} 0-0 [facility] ID Date Data Source [id number] 09/04/2021 04:47:[address] [facility] Name Value Range Interpretation Code Description Data Kaylen rce(s) Supporting Document(s) Bicarbonate [Moles/volume] in Serum 25 mmol/L 22-29 [facility] Chloride [Moles/volume] in Serum or Plasma 100 mmol/L 98-107 [facility] Creatinine [Mass/volume] in Serum or Plasma 1.01 mg/dL 0.70-1.20 [facility] Glucose [Mass/volume] in Serum or Plasma 97 mg/dL 70-140 [facility] Potassium [Moles/volume] in Serum or Plasma 4.0 mmol/L 3.4-5.1 [facility] Sodium [Moles/volume] in Serum or Plasma 133 mmol/L 136-145 L [facility] Urea nitrogen [Mass/volume] in Serum or Plasma 19 mg/dL 8-23 [facility] Anion gap 3 in Serum or Plasma 8 mmol/L 8-15 [facility] Osmolality of Serum or Plasma by calculation 278 mosm/kg 275-300 [facility] Creatinine/Urea nitrogen [Mass Ratio] in Serum or Plasma 19 [facility] Calcium [Mass/volume] in Serum or Plasma 8.3 mg/dL 8.8-10.2 L [facility] Glomerular filtration rate/1.73 sq M pre dicted among non-blacks [Volume Rate/Area] in Serum or Plasma by Creatinine-based formula (MDRD) 71 mL/min/1.73m2 >60 [facility] Glomerular filtration rate/1.73 sq M pre dicted among blacks [Volume Rate/Area] in Serum or Plasma by Creatinine-based formula (MDRD) 82 mL/min/1.73m2 >60 [facility] ID Date Data Source [id number] 09/04/2021 02:00:43 PM [facility] Value Range Interpretation Code Description Data Kaylen rce(s) Supporting Document(s) C reactive protein [Mass/volume] in Serum or Plasma 170.4 mg/L <8.0 H [facility] ID Date Data Source [id number] 09/04/2021 02:34:23 PM [facility] Value Range Interpretation Code Description Data Kaylen rce(s) Supporting Document(s) Magnesium [Mass/volume] in Serum or Plasma 2.3 mg/dL 1.6-2.4 [facility] ID Date Data Source [id number] 09/04/2021 03:26:11 AM [facility] Value Range Interpretation Code Description Data Kaylen rce(s) Supporting Document(s) Sodium [Moles/volume] in Urine 21 mmol/L [facility] Confirmed ID Date Data Source [id number] 09/04/2021 03:26:11 AM [facility] Value Range Interpretation Code Description Data Kaylen rce(s) Supporting Document(s) Creatinine [Mass/volume] in Urine 127.8 mg/dl [facility] ID Date Data Source [id number] 09/04/2021 03:26:11 AM [facility] Value Range Interpretation Code Description Data Kaylen rce(s) Supporting Document(s) Urea nitrogen [Mass/volume] in Urine 688 mg/dL [facility] ID Date Data Source [id number] 09/04/2021 02:43:43 AM [facility] Value Range Interpretation Code Description Data Kaylen rce(s) Supporting Document(s) Color of Urine [facility] Clarity of Urine [facility] Specific gravity of Urine by Refractometry automated 1.003 -1.030 H [facility] pH of Urine by Automated test strip 5.0 5.0-8.0 [facility] Protein [Mass/volume] in Urine by Automated test strip Neg [facility] Glucose [Mass/volume] in Urine by Automated test strip Neg [facility] Ketones [Mass/volume] in Urine by Automated test strip 5 mg/dL Neg [facility] Bilirubin.total [Presence] in Urine by Automated test strip Negative [facility] Hemoglobin [Presence] in Urine by Automated test strip Neg [facility] Leukocyte esterase [Presence] in Urine by Automated test strip Negative [facility] Nitrite [Presence] in Urine by Automated test strip [facility] Leukocytes [#/area] in Urine sediment by Automated count 0 -5 [facility] Erythrocytes [#/area] in Urine sediment by Automated count 0-3 [facility] Service comment [facility] Mucus [#/area] in Urine sediment by Microscopy low power field None [facility] Hyaline casts [#/area] in Urine sediment by Microscopy low p ower field 1 /LPF None [facility] ID Date Data Source [id number] 09/04/2021 12:54:18 AM EDT [facility] Name Value Range Interpretation Code Description Data Kaylen rce(s) Supporting Document(s) History and Physical 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 [file] AyMjAxMyAwMDAwMCBuDQowMDAwMDIyOTczIDAwMDAw GX5TWmJuMWUoHtWwCeDhNBHnPGNzhv5VWSFyBGTqMkE9BuBpVTVcYRCfOLvoHCFqAUY8HqR9WGQxGIIo SD6NRqJvMCRpGjFsCKPbSYFdITZcst6TTNNfXWYiSMX0EJZcYMOmAJDmCDqaVMHvAMC8SER9QRYbSSIu SR3KQcFbJHZbJtG7OJYjZWOqHBVrbo0UWWVuUYNjVp H4JpCuKJHzFLHsUIgzSTZzXKY4ZBM4XGBcVLHiOB2EUwWtNAXeYwi4QHghTDWcHJNcdy7ENFAaLKYuHu i1VCLyGJXdRAPbBYm7ddMzaXGtBAg4BF3WD9FdgiXtLiSIVw3Am755MWV1VQQfXz5MZ6vkPl0jOKZjZY BJJd3QAMi7JiGvMpN4EWjkKgZ5M8E1HLqiIPJcHFk2 XGYoO7GxHkM+SPelOaBfCBVsPBMrWkVtNud7YHU3VzM5WYk5IIFiCYEdRk4yGXXZYs5+DQpzdGFydHhy UWDHDaC9RZctVJcdBCGKDm4I ID Date Data Source [id number] 09/03/2021 07:59:54 PM EDT [facility] CT ANGIOGRAPHY THORAX [id number] RESULTI nterpreted by:Ronda Hutchison, [facility] Jesse MDINDICATION: Dyspnea, elevated d-dimer.TECHNIQUE: Multidetector row helical CT of the chest was performed. Coronal and sagittal reformations were obtained. Automated dose lowering techniques and/or adjustment according to patient size were utilized for this exam.Comparison: None available at the time of this dictation.FINDINGS: Lungs and pleura: There is a small left pleural effusion with adjacent subsegmental atelectasis. This is a trace right pleural effusion with adjacent atelectasis. There is right dependent atelectasis. There is a 8.2 x 8.3 mm pulmonary nodule in the right upper lobe (image 82 series 5).Heart and pericardium: There is a moderate pericardial effusion. The heart is mildly enlarged. Atrial enlargement.Vessels: No evidence of segmental or subsegmental filling defect suggestive of pulmonary embolism. Minimal atherosclerotic changes of seen throughout the visualized portion of the aorta and its branches. Pulmonary artery measures 3.4 cm at the level of the aortic arch which measures 3.2 cm..Mediastinum and chan: There are multiple enlarged lymph nodes in the mediastinum with the largest two in the right lower paratracheal and para-aortic region measuring 1.3 and 1.2 cm, respectively (images 95 and 87 series 5).Chest wall and lower neck: The thyroid gland is obscured by streak artifact but appears heterogenous.Abdomen: The left kidney appears mildly atrophic. There is a partially visualized round fluid density structure at the inferior border of the liver.Bones: Degenerative changes in the thoracic spine. There is a lucent lesion extending from the right humeral head into the visualized portion of the metadiaphysis of the humerus.IMPRESSION:1. No evidence of pulmonary embolism.2. Dilated pulmonary artery. Atrial enlargement. Moderate pericardial effusion. These findings may represent pulmonary hypertension.3. Small left pleural effusion with adjacent subsegmental atelectasis. Trace right pleural effusion with adjacent atelectasis.4. Pulmonary nodule in the right upper lobe as described above.5. Multiple enlarged lymph nodes in the mediastinum as described above. This finding is nonspecific but can be seen in patients with pulmonary hypertension.6. The left kidney appears mildly atrophic.7. Heterogeneous thyroid gland.8. Lucent lesion extending from the right humeral head into the visualized portion of the metadiaphysis of the humerus is incompletely within the csmxx-rm-ebbz on these images therefore incompletely characterized. Dedicated imaging of the upper extremity is suggested.9. Partially visualized round fluid density structure at the inferior border of the liver which is incompletely characterized on this exam.This document has been electronically signed by Ronda Hutchison MD on 09/03/2021 7:57 PM Name Value Range Interpretation Code Description Data Kaylen rce(s) Supporting Document(s) ID Date Data Source [id number] 09/03/2021 07:56:38 PM EDT [facility] Name Value Range Interpretation Code Description Data Kaylen rce(s) Supporting Document(s) Cardiactroponin T pnl SerPlHS 53 ng/L <22 [facility] ID Date Data Source [id number] 09/03/2021 10:35:15 PM EDT [facility] Name Value Range Interpretation Code Description Data Kaylen rce(s) Supporting Document(s) Magnesium [Mass/volume] in Serum or Plasma 1.4 mg/dL 1.6-2.4 L [facility] ID Date Data Source [id number] 09/03/2021 10:35:15 PM EDT [facility] Name Value Range Interpretation Code Description Data Kaylen rce(s) Supporting Document(s) Phosphate [Mass/volume] in Serum or Plasma 3.4 mg/dL 2.5-4.5 [facility] ID Date Data Source [id number] 09/03/2021 05:43:45 PM EDT [facility] XR CHEST FRONTAL ONLY [id number] RESULTI nterpreted by:Ronda Hutchison, [facility] MD JesseINDICATION: Pain with inspiration.TECHNIQUE: Single frontal radiograph of the chest at 85 degrees upright.COMPARISON: None.FINDINGS: Lines/Tubes/Devices: AICD device projecting over the left chest with leads terminating over the region of the right atrium and right ventricle.Heart/Mediastinum: The heart is enlarged. Aortic knob atherosclerotic calcifications noted.Lungs/Pleura: The lungs are clear. There is blunting of left costophrenic angle suggestive of a small left pleural effusion. No pneumothorax.Chest wall/Osseous structures: Degenerative changes of the thoracic spine.IMPRESSION:1. Small left pleural effusion.This document has been electronically signed by Ronda Hutchison MD on 09/03/2021 5:41 PM Name Value Range Interpretation Code Description Data Kaylen rce(s) Supporting Document(s) ID Date Data Source [id number] 09/03/2021 05:29:00 PM EDT [facility] Name Value Range Interpretation Code Description Data Kaylen rce(s) Supporting Document(s) SARS-CoV-2 RNA 2019 nCoV Real-Time RT-PCR: NOT DETECTED [facility] This lab was ordered by [facility] and reported by [facility]. 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 [facility] Patient has symptoms related to [facility] When did you start to experience these symptoms [Date and time] [Phen X] [facility] Patient was hospitalized because of this [facility] patient was admitted to ICU for [facility] Patient resides in a congregate care setting [facility] status [facility] ID Date Data Source [id number] 09/03/2021 06:41:22 PM EDT [facility] Service Cmnt XXX-Imp : NoneRespiratory P CR Panel : PCR ResultsMicroorganism XXX Cult : See Labs Tab for 2019 nCoV RT-PCR resultsHAdV DNA QI RANDALL+non-probe : Not DetectedHCoV 229ERNA Nph QI RANDALL+non-probe : Not DetectedHCoV KGI6AMG Nph QI RANDALL+non-probe : Not GfudyztuAAcRYA59 RNA Nph QI RANDALL+non-probe : Not EozqmjpgPWsZWQ03 RNA Upper resp QI RANDALL+probe : Not DetectedhMPV RNA Nph QINAA+non-probe : Not DetectedRV+EV RNA Nph QI RANDALL+non-probe : Not DetectedFLUAV RNA Nph QI RANDALL+ non-probe : Not DetectedFLUBV RNA Nph QI RANDALL+non-probe : Not DetectedHPIV1 RNA NphQINAA+non-probe : Not DetectedHPIV2 RNA Nph QINAA+non-probe : Not DetectedHPVI3 RNA Nph RANDALL+non-probe : Not DetectedHPIV4 RNA Nph Q RANDALL+non-probe : Not DetectedRSV RNA Nph Q RANDALL+non-probe : Not DetectedB pert.PT PrmtNph Q RANDALL+non-probe : Not DetectedC pneum DNA Nph Q RANDALL+non-probe : Not DetectedM pneum DNA Nph Q RANDALL+non-probe : Not DetectedB [id number] DNA Nph RANDALL+non-probe : Not Detected Name Value Range Interpretation Code Description Data Kaylen rce(s) Supporting Document(s) ID Date Data Source [id number] 09/03/2021 06:14:26 PM [facility] Name Value Range Interpretation Code Description Data Kaylen rce(s) Supporting Document(s) Fibrin D-dimer FEU [Mass/volume] in Platelet poor plas ma by Immunoassay 2.48 ug/mL{FEU} <0.50 [facility] ID Date Data Source [id number] 09/03/2021 06:20:18 PM [facility] Name Value Range Interpretation Code Description Data Kaylen rce(s) Supporting Document(s) Cardiactroponin T pnl SerPlHS 60 ng/L <22 [facility] ID Date Data Source [id number] 09/03/2021 06:22:08 PM [facility] Name Value Range Interpretation Code Description Data Kaylen rce(s) Supporting Document(s) Digoxin [Mass/volume] in Serum or Plasma 0.3 ng/ml 0.9-2.0 L [facility] ID Date Data Source [id number] 09/03/2021 06:22:08 PM [facility] Name Value Range Interpretation Code Description Data Kaylen rce(s) Supporting Document(s) Albumin [Mass/volume] in Serum or Plasma by Bromocresol green (BCG) dye binding method 3.8 g[facility]dL 3.5-5.2 [facility] Bil[facility].total [Mass/volume] in Serum or Plasma 1.3 mg/dL <1.2 H [facility] Calcium [Mass/volume] in Serum or Plasma 9.0 mg/dL 8.8-10.2 [facility] Chloride [Moles/volume] in Serum or Plasma 96 mmol/L 98-107 L [facility] Creatinine [Mass/volume] in Serum or Plasma 1.45 mg/dL 0.70-1.20 [facility] Glucose [Mass/volume] in Serum or Plasma 107 mg/dL 70-140 [facility] Alkaline phosphatase [Enzymatic activity/volume] in Serum or Plasma 157 U/L 40-129 [facility] Potassium [Moles/volume] in Serum or Plasma 4.6 mmol/L 3.4-5.1 [facility] Protein [Mass/volume] in Serum or Plasma 7.4 g/dL 6.4-8.3 [facility] Sodium [Moles/volume] in Serum or Plasma 135 mmol/L 136-145 L [facility] Aspartate aminotransferase [Enzymatic activity/volume] in Serum or Plasma 23 U/L <40 [facility] Urea nitrogen [Mass/volume] in Serum or Plasma 21 mg/dL 8-23 [facility] Osmolality of Serum or Plasma by calculation 283 mosm/kg 275-300 [facility] Creatinine/Urea nitrogen [Mass Ratio] in Serum or Plasma 14 [facility] Bicarbonate [Moles/volume] in Serum 26 mmol/L 22-29 [facility] Alanine aminotransferase [Enzymatic activity/volume] in Seru m or Plasma 27 U/L <41 [facility] Anion gap 3 in Serum or Plasma 13 mmol/L 8-15 [facility] Glomerular filtration rate/1.73 sq M pre dicted among non-blacks [Volume Rate/Area] in Serum or Plasma by Creatinine-based formula (MDRD) 46 mL/min/1.73m2 >60 [facility] Glomerular filtration rate/1.73 sq M pre dicted among blacks [Volume Rate/Area] in Serum or Plasma by Creatinine-based formula (MDRD) 53 mL/min/1.73m2 >60 [facility] ID Date Data Source [id number] 09/03/2021 08:51:54 PM EDT [facility] Name Value Range Interpretation Code Description Data Kaylen rce(s) Supporting Document(s) Leukocytes [#/volume] in Blood by Automated count 9.5 10*3/uL 4-10 [facility] Erythrocytes [#/volume] in Blood by Automated count 4.26 10*6/uL 4.6- 6.1 [facility] Hemoglobin [Mass/volume] in Blood 13.8 g/dL 13.5-18 [facility] Hematocrit [Volume Fraction] of Blood by Automated count 40.5 % 4 1-53 [facility] Erythrocyte mean corpuscular volume [Entitic volume] by Auto mated count 95.0 fL 80-96 [facility] Erythrocyte mean corpuscular hemoglobin [Entitic mass] by Automated count 32.5 pg 27-33 [facility] Erythrocyte mean corpuscular hemoglobin concentration [Mass/volume] by Automated count 34.2 g/dL 32.0-36.0 [facility] E[facility] distribution width [Ratio] by Automated count 14.1 % 11.5-14.5 [facility] Platelets [#/volume] in Blood by Automated count 306 10*3/uL 150-400 [facility] Confirmed Differential cell count method - Blood [facility] Neutrophils/100 leukocytes in Blood by Automated count 70 % [facility] Lymphocytes/100 leukocytes in Blood by Automated count 12 % [facility] Monocytes/100 leukocytes in Blood by Automated count 17 % [facility] Eosinophils/100 leukocytes in Blood by Automated count 0 % [facility] Basophils/100 leukocytes in Blood by Automated count 1 % [facility] Neutrophils [#/volume] in Blood by Automated count 6.69 10*3/uL 1.8-7 .0 [facility] Lymphocytes [#/volume] in Blood by Automated count 1.17 10*3/uL 1.2-4 .0 L [facility] Monocytes [#/volume] in Blood by Automated count 1.59 10*3/uL 0-0.8 H [facility] Eosinophils [#/volume] in Blood by Automated count 0.00 10*3/uL 0-0.5 [facility] Basophils [#/volume] in Blood by Automated count 0.04 10*3/uL 0-0.2 [facility] Nucleated erythrocytes/100 leukocytes [Ratio] in Blood by Automated count 0 /100{WBCs} 0-0 [facility] ID Date Data Source [id number] 09/03/2021 10:12:49 PM EDT [facility] Name Value Range Interpretation Code Description Data Kaylen rce(s) Supporting Document(s) Thyrotropin [Units/volume] in Serum or Plasma 0.270-4.200 [facility] Corrected result called to and read back PachecoNAOMI PELAYO AT 1603. 3861Corrected 09/03 AT 2212: Previous Result was 0.030 Corrected result called to and read back by NAOMI PELAYO AT 6029. 1966, Corrected 09/03 AT 1833: Previous Result was [id number] ID Date Data Source [id number] 08/30/2021 04:28:00 PM EDT [facility] ([facility] Name Value Range Interpretation Code Description Data Kaylen rce(s) Supporting Document(s) Thyroid Stimulating Hormone Laboratory test result 0.358-3.740 [facility] ([facility] Free T4 2.27 ng/dL 0.76-1.46 [facility] ([facility] ID Date Data Source [id number] 08/30/2021 04:28:00 PM EDT [facility] ([facility]) Name Value Range Interpretation Code Description Data Kaylen rce(s) Supporting Document(s) Thyroid Stimulating Hormone Laboratory test result 0.358-3.740 [facility] ([facility]) Free T4 2.27 ng/dL 0.76-1.46 [facility] ([facility]) ID Date Data Source [id number] 2021 11:55:28 AM EDT [facility] Name Value Range Interpretation Code Description Data Kaylen rce(s) Supporting Document(s) Progress Note [facility] TSOWOy2aPgJPAnQs26/TMNraGKXyp7MdWMnfYVr7BOtuDKDsY9XeTZK7mS0yGBP2GDaKJlDgMeDrDAJ9 lbm [file] AgICAgICAgICAgICAgICAgICAgICAgICAgICAgICAg ICAgICAgICAgICAgICAgICAgICAgICAgICAgICAgICAgICAgICAgICAgICAgICAgICAgICAgICANCiAg ICAgICAgICAgICAgICAgICAgICAgICAgICAgICAgICAgICAgICAgICAgICAgICAgICAgICAgICAgICAg ICAgICAgICAgICAgICAgICAgICAgICAgICAgICAgIC AgICAgICANCiAgICAgICAgICAgICAgICAgICAgICAgICAgICAgICAgICAgICAgICAgICAgICAgICAgIC AgICAgICAgICAgICAgICAgICAgICAgICAgICAgICAgICAgICAgICAgICAgICAgICANCiAgICAgICAgIC AgICAgICAgICAgICAgICAgICAgICAgICAgICAgICAg ICAgICAgICAgICAgICAgICAgICAgICAgICAgICAgICAgICAgICAgICAgICAgICAgICAgICAgICAgICAN CiAgICAgICAgICAgICAgICAgICAgICAgICAgICAgICAgICAgICAgICAgICAgICAgICAgICAgICAgICAg ICAgICAgICAgICAgICAgICAgICAgICAgICAgICAgIC AgICAgICAgICANCiAgICAgICAgICAgICAgICAgICAgICAgICAgICAgICAgICAgICAgICAgICAgICAgIC AgICAgICAgICAgICAgICAgICAgICAgICAgICAgICAgICAgICAgICAgICAgICAgICAgICANCiAgICAgIC AgICAgICAgICAgICAgICAgICAgICAgICAgICAgICAg ICAgICAgICAgICAgICAgICAgICAgICAgICAgICAgICAgICAgICAgICAgICAgICAgICAgICAgICAgICAg ICANCiAgICAgICAgICAgICAgICAgICAgICAgICAgICAgICAgICAgICAgICAgICAgICAgICAgICAgICAg ICAgICAgICAgICAgICAgICAgICAgICAgICAgICAgIC AgICAgICAgICAgICANCiAgICAgICAgICAgICAgICAgICAgICAgICAgICAgICAgICAgICAgICAgICAgIC AgICAgICAgICAgICAgICAgICAgICAgICAgICAgICAgICAgICAgICAgICAgICAgICAgICAgICANCiAgIC AgICAgICAgICAgICAgICAgICAgICAgICAgICAgICAg ICAgICAgICAgICAgICAgICAgICAgICAgICAgICAgICAgICAgICAgICAgICAgICAgICAgICAgICAgICAg ICAgICANCjw/gKBiY5pcxFBlqbL3M1mbHn4BZx6NVD2fp1LxQNOxXCkieySdOurXIdGoGPBkLybWZmo0 RXmvZR4VuRCjE1WxQ3LvLVakAI9BATBxZGJcyAQiIZ BwDRLsQuU8BFCkKSsyPF8KoZVhLVcdVBJoVLEzDdIbNNDfMZRgWYUcXCOiBAFNPOAhXCQtSsZjFHdrEN 8Gm1VqlZC5ZRo+Bf1FSP6el4LfOGukCwFlHK3nmr5ZGRdZRnToS5YszyS2FAU6IGVmDb1SSQWzVPXrqQ CpXxBaEUWNEpUrG9CtsY64TIVUEm9+DQplbmRvYmoN DlI0EAQqf0BkYPw0QW2CJDBcLOq4dGAtKQGeY6Ncy1HtCi25DPYgXmvsXVLdkzFSWQFfUUIaTF0hZNND MAZhuBBuPM2gTD9sKSTgMDSzLoJjOBYUQY9ZNNOnSEKrjKSaWCHzWYEDOY2UPHzeJGW0RLJuxlFysBLa BJjfFN7SICSswtReQsZrWXUCNKs+Mg6EBH7co3VfUY eyAJZzXW2afv0RXGvCWkLiJ2J0aLBlT6S7UGinVq9CPAVgKGCgJaSfMGDQDAthEX8FLZ3llqO4ZQ7FlO MsVYHeTDCmrGUaHOc5A86ozYMvFKevOB4MJAG+Silvia+Cj1ZWKHvDVOsTZMuOlVwKUUMLlGoO1CbU4DQc9 DbZ4PyMT35oMmxjoFhFWowKH8ZAX4zVEHvHILTQP6S jNRuzH3zylIyDgZmCSHNRmEsI20anYDdBPLpOTS5XSClQp5HGLDcX8YbmlEfeGciwaAhHIPrNBGHBM3Q VPtkfjKnqHAwxYusDK43uVaaHQ3KPl0ENlEwLZ5mlz0IcCHiIn0RPPJbSQ1UKLAhPJSbYFYeDOI2IJDz DcIiQNdqCCVjSQWdKLX8JRZpCCNxOS8DQpAtFHDkHs D0SOTuRHVpOSQkfp1ZMYYaMOCqYPF5KrJxQNLmGPPeXPrwVRQuCPNkFDT8ZEZqVADiVH1MKsPqIMTyNO K8JyrvDTJxZTDwir2EXJAhTHBcRMLiOsZcBBJvOKJgMNuiAMPnCYX6HWM8GVOiUKNsOX6SNxFtBKMyAA zjTJJlSNKxRKHqdr3JKQNmOEUrDSP5RGDzEJAwJMLv IJvyLQHrBFV6EIkzZNLwYRRjGN5XFeAlJPLpIWQrDYTsMDMcACFwoh4WFKEgQCHdZhRfGXEbUUUbMQLm OUyfRPDlXPC9FyJdFGHpEUEzVT0PLmLpHWRhDSW0PKvvDKGfSVCnhj2SXYRqSTJeUXU5YIFyMTDrLDBb ZOxySFEfQUX4NyR0FAAfWBJpSE9JLyItPIVsYUK7LK upICMjKZWhuu7VRHDxDMGhQoxmJdNtMSBsTLCfXLerCHCrKFN8AII4KZQlPVUiRO1SWhAmXGGmZVzoJV psUZPcHKGcsp7EAAVpLZXsTVLyJfVdJXIoLMPqXXehOQEmTJX6ORLtFRUaSIKuSL6OZoLdPDGnAboaEf EgUTFjIMDixp5MNYMqFWLrFLQvZZKdHNOmCLSpCSxk VYKiQLS8TKT0RUNmYLQnVB6QMsEnFGSuDsQ2YEWlFGZhIKVzpu4RCPMxAFLfNPT3QlVoZZMwQXYmMGlw YNTmKVXnYRNwSWLiWNTbWL3BZeYnDRDoMuK3ADYqWKZqITNcfa7NHZHqTRZuBVm2JFQzSEVrHLUhNUmi XRFlTFTjKRwdSSEuQCXnNY3TNrFxIOZwRlLlMNRvEF CnPUGudv3ZFSKmQAOkHpF8LmMkWEPuXAFpYBrkIBQuIHEgAEP2VAQpLFYzBI1ECqYaLDXcIbD3RDpqJM WgIHJfbf0TTLIwZLUaQFH5VYBsDLMhFKNuUDzdSJIcRJD9UZByYEKxJKFjFM2FYwUyFFCgVpH1SUPePA SkAIQsvr5PuUFjrKxlig1SKDpXQw1IuYhbKTF7NEbw Wp0jaORtADBwWFULPm9QjbYtIPVxLYUUASgoVSIkNKpdVsifCnR7MnN9DPC1STNhMOBmKkrtQnM0KJQj JURvPxQ6QQX1FHGeOTYkBNV9WooxHGL5PgYbYzR8INCeZGQ9GiC+PX1eLEd+Hh4Js7ZkbrC8zeRiRGbc FXc4Oa1ASMJIT8DALf== ID Date Data Source [id number] 08/14/2021 01:43:00 PM EDT [facility] Name Value Range Interpretation Code Description Data Kaylen rce(s) Supporting Document(s) Thyrotropin [Units/volume] in Serum or Plasma Laboratory test re sult 0.35-4.94 [facility]) This sample is drawn by:shashi ID Date Data Source [id number] 08/14/2021 01:43:00 PM EDT [facility]) Name Value Range Interpretation Code Description Data Kaylen rce(s) Supporting Document(s) WBC 5.4 K/uL 4.1-11.0 [facility]) This sample is drawn by:shashi RBC 4.56 M/uL 4.60-6.10 [facility]) This sample is drawn by:bs Hemoglobin 14.7 gm/dL 13.5-18.0 [facility] ([facility]) This sample is drawn by:bs Hematocrit [Volume Fraction] of Blood by Automated count 44.1 % 4 1.0-53.0 [facility] ([facility]) This sample is drawn by:bs MCV 96.9 fL 80.0-95.0 [facility] ([facility]) This sample is drawn by:bs MCH 32.3 pg 27.0-32.0 [facility] ([facility]) This sample is drawn by:bs RDW 13.9 % 10.5-14.5 [facility] ([facility]) This sample is drawn by:bs MCHC 33.4 g/dL 32.0-36.0 [facility] ([facility]) This sample is drawn by:bs PLT Count 180 K/ul 150-400 [facility] ([facility]) This sample is drawn by:bs MPV 10.0 FL 7.1-10.7 [facility] ([facility]) This sample is drawn by:bs Neutrophil 55.6 % 35.0-75.0 [facility] ([facility]) This sample is drawn by:bs Lymphocyte 23.2 % 16.0-52.0 [facility] ([facility]) This sample is drawn by:bs Monocyte 19.0 % 0.0-8.0 [facility] ([facility]) This sample is drawn by:bs Basophil 0.9 % 0.0-4.0 [facility] ([facility]) This sample is drawn by:bs Eosinophil 1.3 % 0.0-5.0 [facility] ([facility]) This sample is drawn by:bs Abs Neutrophils 3.0 K/uL 1.8-7.7 [facility] ([facility]) This sample is drawn by:bs Abs Lymphocytes 1.2 K/uL 1.2-4.8 [facility] ([facility]) This sample is drawn by:bs Abs Eosinophils 0.1 K/uL 0.0-0.5 [facility] ([facility]) This sample is drawn by:bs Abs Monocytes 1.0 K/uL 0.0-0.8 [facility] ([facility]) This sample is drawn by:bs Abs Basophils 0.1 K/uL 0.0-0.2 [facility] ([facility]) This sample is drawn by:bs ID Date Data Source [id number] 08/14/2021 01:43:00 PM EDT [facility] ([facility]) Name Value Range Interpretation Code Description Data Kaylen rce(s) Supporting Document(s) Potassium 4.1 mmol/L 3.5-5.2 [facility] ([facility]) This sample is drawn by:bs Sodium 142 mmol/L 135-146 [facility] ([facility]) This sample is drawn by:bs Chloride# 105 mmol/L 97-110 [facility] ([facility]) This sample is drawn by:bs Carbon Dioxide 27 mmol/L 24-34 [facility] ([facility]) This sample is drawn by:bs Calcium 9.2 mg/dL 8.5-10.5 [facility] ([facility]) This sample is drawn by:bs Creatinine 1.0 mg/dL 0.5-1.4 [facility] ([facility]) This sample is drawn by:bs Glucose 96 mg/dL 70-105 [facility] ([facility]) This sample is drawn by:bs BUN 11 mg/dL 6-26 [facility] ([facility]) This sample is drawn by:bs Total Protein 6.8 g/dL 6.0-8.0 [facility] ([facility]) This sample is drawn by:bs Globulin 2.8 g/dL 2.0-3.5 [facility] ([facility]) This sample is drawn by:bs Albumin 4.0 g/dL 3.6-4.9 [facility] ([facility]) This sample is drawn by:bs Alkaline Phosphatase 85 U/L 24-140 [facility] ([facility]) This sample is drawn by:bs Total Bilirubin 0.7 mg/dL 0.1-1.3 [facility] ([facility]) This sample is drawn by:bs A/G Ratio 1.4 Ratio 1.0-2.2 [facility] ([facility]) This sample is drawn by:bs Alt 20 U/L 3-42 [facility] ([facility]) This sample is drawn by:bs Ast 28 U/L 8-42 [facility] ([facility]) This sample is drawn by:shashi Laboratory test finding (navigational concept) 56 [facility] This sample is drawn by:shashi Anion Gap 10 mmol/L 5-15 [facility] ([facility]) This sample is drawn by:shashi Laboratory test finding (navigational concept) 74 [facility] ([facility]) This sample is drawn by:bs ID Date Data Source [id number] 08/14/2021 01:43:00 PM EDT [facility] ([facility]) Name Value Range Interpretation Code Description Data Kaylen rce(s) Supporting Document(s) Thyrotropin [Units/volume] in Serum or Plasma by Detec tion limit <= 0.005 mIU/L Laboratory test result [facility]) This sample is drawn by:shashi Thyroxine (T4) free [Mass/volume] in Serum or Plasma 1.49 ng/dL 0.70- 1.48 [facility] ([facility]) This sample is drawn by:shashi ID Date Data Source [id number] 08/10/2021 11:55:05 AM EDT [facility] INFORMATIONPatient MRN Name Date of Age Gend*PT [id number] Davida Daniel 1945 75 years M SDCPT Location Admission Date/Time Visit ID Attending ProviderASNE POST OP * 08/10/21 1007 --- Jasmina Schultz MD([id number]) EPI ID CSN Admitting Provider [id number] Jasmina Schultz MD([id number])Cardioversion Procedure NoteName:Davida Daniel Date:08/10/2021rimary Care Provider: jasmina modibPreoperative Diagnosis: Atrial fibPostoperative Diagnosis: nsrAnesthesia: per anesthesiaClinical History: The patient is a 75 years old male with a history of atrialfib/IHSS/AICD who presents for an elective trial of cardioversion.Procedure:The procedure, risks, benefits, and alternatives were discussed withthe patient prior to the administration of anesthesia. The risks include butare not limited to: reaction to anesthesia, stroke (minimized by being onanticoagulation for an appropriate period of time), and cardiac arrhythmia(either bradyarrhythmia which could require pacing or tachyarrhythmia whichcould require further shocks). The alternatives include continued rate controland anticoagulation. The patient understood the procedure and risks involved andagreed to proceed. Informed consent was obtained by the operating physicianThe patient was brought to the NEPACU in the fasting state. Rhythm prior tocardioversion was Atrial fibrillation Paddles were placed in AL conf iguration.Following appropriate sedation by anesthesia, the patient received a shock of225 joules with a biphasic defibrillator in a synchronized fashion. The patientconverted to Normal sinus rhythm with the first shock.The patient tolerated the procedure and there were no complicationsConclusion: SUCCESSFUL cardioversion to Normal Sinus RhythmJasmina Schultz MD, FACCCardiovascular Group [facility] Name Value Range Interpretation Code Description Data Kaylen rce(s) Supporting Document(s) ID Date Data Source [id number] 08/10/2021 11:49:08 AM EDT [facility]FORMATIONPatient MRN Name Date of Age Gend*PT [id number] Davida Daniel 1945 75 years M SDCPT Location Admission Date/Time Visit ID Attending ProviderASNE POST OP * 08/10/21 1007 --- Jasmina Schultz MD([id number]) EPI ID CSN Admitting Provider [id number] Jasmina Schultz MD([id number])There is no change in history and physical from H/P. Please see paper attachedH/P please.Jasmina Schultz MD, F.A.C.C.August [id number] AM Name Value Range Interpretation Code Description Data Kaylen rce(s) Supporting Document(s) ID Date Data Source [id number] 08/06/2021 08:15:00 AM EDT [facility] Name Value Range Interpretation Code Description Data Kaylen rce(s) Supporting Document(s) SARS coronavirus 2 RNA [Presence] in Res piratory specimen by RANDALL with probe detection NOT DETECTED [facility] This lab was reported by [facility]. ID Date Data Source [id number] 08/06/2021 04:16:45 PM EDT [facility] Name Value Range Interpretation Code Description Data Kaylen rce(s) Supporting Document(s) SPECIMEN DESCRIPTION [facility] [place] COVID 19 RESULT (NDET) [facility] [place] NEGATIVE COVID-19 RESULTS DONOT PRECLUDE COVID-2019 INFECTION ANDSHOULD NOT BE USED THE SOLE BASISFOR PATIENT MANAGEMENT DECISIONS. COMMENT [facility] of [place] THE [place] FDA HAS MADE THIS TEST AVAILABL YAZMINER AN EMERGENCY USE AUTHORIZATION(EUA) FOR THE DETECTION AND/OR DIAGNOSISOF THE VIRUS THAT CAUSES COVID-19.THIS ASSAY AMPLIFIES AND DETECTS [employer] USING FOOD BEVERAGE MANAGER- MEDIATEDAMPLIFICATIONTESTING PERFORMED ON DXY FIRST TEST [facility] [place] SYMPTOMATIC [facility] [place] DATE OF SYMPT ONSET [facility] [place] HOSPITALIZED [facility] [place] [facility] [place] CONGREGATE CARE SET [facility] [place] [facility] ID Date Data Source [id number] 06/27/2021 06:19:00 PM EDT [facility] ([facility] Name Value Range Interpretation Code Description Data Kaylen rce(s) Supporting Document(s) Laboratory test finding (navigational concept) Laboratory test result [facility] ([facility] ID Date Data Source [id number] 06/27/2021 06:19:00 PM EDT [facility] Name Value Range Interpretation Code Description Data Kaylen rce(s) Supporting Document(s) SARS COVID ANTIGEN POSITIVE [facility] This lab was ordered by GEOFF muse nd reported by [facility]. ID Date Data Source [id number] 06/27/2021 05:46:00 PM EDT [facility] ([facility] Name Value Range Interpretation Code Description Data Kaylen rce(s) Supporting Document(s) Glucose, Fasting 106 mg/dL 70-100 [facility] ([facility] Glomerular Filtration Rate Laboratory test result [facility] ([facility] <content>Units are mL/min/1.73 m2</content>
<content></content>
<content>Chronic Kidney Disease Staging per NKF:</content>
<content></content>
<content>Stage I & II GFR >=60 Normal to Mildly Decreased</content>
<content>Stage III GFR 30- 59 Moderately Decreased</content>
<content>Stage IV GFR 15-29 Severely Decreased</content>
<content>Stage V GFR <15 Very Little GFR Left</content>
<content>ESRD GFR <15 on [employer]</content>
<content></content> Blood Urea Nitrogen 14 mg/dL 7-18 [facility] ([facility] Creatinine For GFR 1.07 mg/dL 0.70-1.30 [facility] ([facility] Potassium Serum 4.3 meq/L 3.5-5.1 [facility] ([facility] Sodium Level 137 meq/L 136-145 [facility] ([facility] Carbon Dioxide Level 27 meq/L 21-32 [facility] ([facility] Chloride Level 106 meq/L 98-107 [facility] ([facility] Anion Gap 4 meq/L 8-16 [facility] ([facility] Calcium Level 9.1 mg/dL 8.8-10.2 [facility] ([facility] ID Date Data Source [id number] 06/27/2021 05:46:00 PM EDT [facility] ([facility] Name Value Range Interpretation Code Description Data Kaylen rce(s) Supporting Document(s) Ast/Sgot 18 U/L 7-37 [facility] ([facility] Bilirubin,Total 1.1 mg/dL 0.2-1.0 [facility] ([facility] Alt/SGPT 26 U/L 12-78 [facility] ([facility] Alkaline Phosphatase 69 U/L 45-117 [facility] ([facility] Bilirubin,Direct 0.4 mg/dL 0.0-0.2 [facility] ([facility] Total Protein 7.7 GM/DL 6.4-8.2 [facility] ([facility] Albumin 3.6 GM/DL 3.2-5.2 [facility] ([facility] Albumin/Globulin Ratio 0.9 [facility] ([facility] ID Date Data Source [id number] 06/27/2021 05:46:00 PM EDT [facility] ([facility] Name Value Range Interpretation Code Description Data Kaylen rce(s) Supporting Document(s) CK-MB Value Mass Laboratory test result [facility] ([facility] CPK Creatine Phosphokinase 23 U/L 39-308 [facility] ([facility] Troponin I 0.04 ng/mL [facility] ([facility] <content>Troponin I Reference Interval f or Siemens [place] LOCI:</content>
<content></content>
<content>99th Percentile= 0.00-0.045 ng/ml</content>
<content></content>
<content>Risk Stratification:</content>
<content><= 0.10 ng/ml Decreased Risk for Adverse Clinical</content>
<content>Events.</content>
<content>0.10-1.50 ng/ml Increased Risk for Adverse Clinical</content>
<content>Events. Evaluation of additional</content>
<content>criterion and/or repeat testing in 2-6</content>
<content>hours is suggested to rule out myocardial</content>
<content>damage.</content>
<content>>= 1.50 ng/ml Indicative of Myocardial Injury.</content>
<content></content> MB/CK Relative Index 4.35 [facility] ([facility] <content>DIAGNOSIS CRITERIA</content>
<content>MMB ng/ml Relative Index (RI)</content>
<content>NON-AMI < or = 5 N/A</content>
<content>REDMOND ZONE > 5 < or = 4</content>
<content>AMI > 5 > 4</content>
<content></content> ID Date Data Source [id number] 06/27/2021 05:46:00 PM EDT [facility] ([facility] Name Value Range Interpretation Code Description Data Kaylen rce(s) Supporting Document(s) Thyroxine (T4) free [Mass/volume] in Serum or Plasma 2.11 ng/dL 0.76- 1.46 [facility] ([facility] ID Date Data Source [id number] 06/27/2021 05:46:00 PM EDT [facility] ([facility] Name Value Range Interpretation Code Description Data Kaylen rce(s) Supporting Document(s) White Blood Count 10.9 10 4.0-10.0 [facility] ([facility] A Pathologist review of this differentia l can help in the evaluation of a differential diagnosis. Please order a Pathologist Review (PERISM) if deemed necessary. Results are subject to change if a Pathologist Review is performed. Hemoglobin 14.7 g/dL 13.5-17.5 [facility] ([facility] Hematocrit 44.2 % 42.0-52.0 [facility] ([facility] Red Blood Count 4.49 10 4.30-6.10 [facility] ([facility] Mean Corpuscular Volume 98.4 fl 80.0-96.0 M [facility] ([facility] Mean Corpuscular HGB Conc 33.3 g/dL 32.0-36.5 [facility] ([facility] Mean Corpuscular Hemoglobin 32.7 pg 27.0-33.0 [facility] ([facility] Platelet Count, Automated 162 10 150-450 [facility] ([facility] Red Cell Distribution Width 12.6 % 11.5-14.5 [facility] ([facility] Neutrophils % 73.1 % 36.0-66.0 [facility] ([facility] Lymph % 10.3 % 24.0-44.0 [facility] ([facility] Burke % 15.9 % 2.0-8.0 [facility] ([facility] Baso % 0.2 % 0.0-1.0 [facility] ([facility] Immature Granulocyte % 0.5 % 0-3.0 [facility] ([facility] Eos % 0.0 % 0.0-3.0 [facility] ([facility] Nucleated Red Blood Cell % 0.0 % 0-0 [facility] ([facility] Neutrophils # 8.0 10 1.5-8.5 [facility] ([facility] Burke # 1.7 10 0.0-0.8 [facility] ([facility] Eos # 0.0 10 0.0-0.5 [facility] ([facility] Lymph # 1.1 10 1.5-5.0 [facility] ([facility] Baso # 0.0 10 0.0-0.2 [facility] ([facility] ID Date Data Source [id number] 06/27/2021 05:46:00 PM EDT [facility] ([facility] Name Value Range Interpretation Code Description Data Kaylen rce(s) Supporting Document(s) Fibrinogen [Mass/volume] in Platelet poor plasma by Coagulat ion assay 563 mg/dL 268-480 [facility] ([facility] Procalcitonin [Mass/volume] in Serum or Plasma Laboratory test result [facility] ([facility] <content>SEPSIS INTERPRETATION OF RESULT S</content>
<content><0.5 ng/ml Low risk for progression to severe</content>
<content>sepsis and or septic shock.</content>
<content>0.50-2.00 ng/ml Sepsis should be considered.</content>
<content>>2.00 ng/ml High risk for progression to severe</content>
<content>sepsis and or septic shock.</content>
<content></content>
<content>LOWER RESPIRATORY TRACT INFECTION REFERENCE INTERVAL</content>
<content><0.1 ng/ml Antibiotics strongly discouraged.</content>
<content>0.1-0.25 ng/ml Antibiotics are discouraged.</content>
<content>0.26-0.5 ng/ml Antibiotics are encouraged.</content>
<content>>0.5 ng/ml Antibiotics are strongly encouraged.</content>
<content></content> Fibrin D-dimer FEU [Mass/volume] in Platelet poor plasma 694.39 ng/mL [facility] ([facility] ID Date Data Source [id number] 06/27/2021 05:46:00 PM EDT [facility] ([facility] Name Value Range Interpretation Code Description Data Kaylen rce(s) Supporting Document(s) Prothrombin Time 21.2 s 12.7-14.5 [facility] ([facility] Inr 1.79 [facility] ([facility] THERAPUTIC HUMAN INR VALUES INDICATIONS NORMAL RANGES PROPHYLAXIS/TREATMENT OF: VENOUS THROMBOSIS 2.0-3.0 PULMONARY EMBOLISM 2.0-3.0 PREVENTION OF SYSTEMIC EMBOLISM FROM: TISSUE HEART VALVES 2.0-3.0 ACUTE MYOCARDIAL INFARCTION 2.0-3.0 VALVULAR HEART DISEASE 2.0-3.0 ATRIAL FIBRILLATION 2.0-3.0 MECHANICAL VALVES(HIGH RISK) 2.5-3.5 RECURRENT MYOCARDIAL INFARCTION 2.5-3.5 Partial Thromboplastin Time 47.3 s 25.9-37.0 [facility] ([facility] ID Date Data Source [id number] 06/27/2021 05:46:00 PM EDT [facility] ([facility] Name Value Range Interpretation Code Description Data Kaylen rce(s) Supporting Document(s) Natriuretic peptide.B prohormone N-Terminal [Mass/volu me] in Serum or Plasma 2210 pg/mL [facility] ([facility] Magnesium [Mass/volume] in Serum or Plasma 1.7 mg/dL 1.8-2.4 [facility] ([facility] Lactate dehydrogenase [Enzymatic activit y/volume] in Serum or Plasma by Lactate to pyruvate reaction 222 U/L 87-241 [facility] ([facility] Ferritin [Mass/volume] in Serum or Plasma 159 ng/mL 26-388 [facility] ([facility] Thyrotropin [Units/volume] in Serum or Plasma Laboratory lara t result 0.358-3.740 [facility] ([facility] C reactive protein [Mass/volume] in Serum or Plasma by High sensitivity method 12.90 mg/dL 0.00-0.30 [facility] ([facility] ID Date Data Source [id number] 06/27/2021 05:35:00 PM EDT [facility] ([facility] Name Value Range Interpretation Code Description Data Kaylen rce(s) Supporting Document(s) Lactate [Mass/volume] in Serum or Plasma 1.4 mmol/L 0.4-2.0 [facility] ([facility] Y/N query for Sepsis Lactate Rule: Y ID Date Data Source [id number] 06/27/2021 09:28:11 AM EDT [facility] Name Value Range Interpretation Code Description Data Kaylen rce(s) Supporting Document(s) Progress Note [facility] [id number] lbm [file] [id number] ID Date Data Source [id number] 06/27/2021 12:00:00 AM EDT [facility] Name Value Range Interpretation Code Description Data Kaylen rce(s) Supporting Document(s) SARS-CoV2 Rapid Antigen Positive [facility] This lab was ordered by [facility] and reported by [facility]. ID Date Data Source [id number] 06/26/2021 05:48:07 PM EDT [facility] Name Value Range Interpretation Code Description Data Kaylen rce(s) Supporting Document(s) Thyroxine (T4) free [Mass/volume] in Serum or Plasma 2.40 ng/dL 0.93- 1.70 [facility] + [facility] ID Date Data Source [id number] 06/26/2021 05:48:07 PM EDT [facility] Name Value Range Interpretation Code Description Data Kaylen rce(s) Supporting Document(s) Bicarbonate [Moles/volume] in Serum 24 mmol/L 22-29 [facility] Chloride [Moles/volume] in Serum or Plasma 101 mmol/L 98-107 [facility] Creatinine [Mass/volume] in Serum or Plasma 1.12 mg/dL 0.70-1.20 [facility] Glucose [Mass/volume] in Serum or Plasma 94 mg/dL 70-140 [facility] Potassium [Moles/volume] in Serum or Plasma 4.5 mmol/L 3.4-5.1 [facility] Sodium [Moles/volume] in Serum or Plasma 138 mmol/L 136-145 [facility] Urea nitrogen [Mass/volume] in Serum or Plasma 14 mg/dL 8-23 [facility] Anion gap 3 in Serum or Plasma 13 mmol/L 8-15 [facility] Osmolality of Serum or Plasma by calculation 286 mosm/kg 275-300 [facility] Creatinine/Urea nitrogen [Mass Ratio] in Serum or Plasma 13 [facility] Calcium [Mass/volume] in Serum or Plasma 9.6 mg/dL 8.8-10.2 [facility] Glomerular filtration rate/1.73 sq M pre dicted among non-blacks [Volume Rate/Area] in Serum or Plasma by Creatinine-based formula (MDRD) 63 mL/min/1.73m2 >60 [facility] Glomerular filtration rate/1.73 sq M pre dicted among blacks [Volume Rate/Area] in Serum or Plasma by Creatinine-based formula (MDRD) 73 mL/min/1.73m2 >60 [facility] ID Date Data Source [id number] 06/26/2021 05:48:07 PM [facility] Name Value Range Interpretation Code Description Data Kaylen rce(s) Supporting Document(s) Magnesium [Mass/volume] in Serum or Plasma 1.8 mg/dL 1.6-2.4 [facility] ID Date Data Source [id number] 06/26/2021 05:48:07 PM [facility] Value Range Interpretation Code Description Data Kaylen rce(s) Supporting Document(s) Thyrotropin [Units/volume] in Serum or Plasma 0.270-4.200 L [facility] ID Date Data Source [id number] 06/26/2021 06:08:42 PM [facility] Value Range Interpretation Code Description Data Kaylen rce(s) Supporting Document(s) Leukocytes [#/volume] in Blood by Automated count 6.5 10*3/uL 4-10 [facility] Erythrocytes [#/volume] in Blood by Automated count 4.72 10*6/uL 4.6- 6.1 [facility] Hemoglobin [Mass/volume] in Blood 15.3 g/dL 13.5-18 [facility] Hematocrit [Volume Fraction] of Blood by Automated count 46.6 % 4 1-53 [facility] Erythrocyte mean corpuscular volume [Entitic volume] by Auto mated count 98.7 fL 80-96 H [facility] Erythrocyte mean corpuscular hemoglobin [Entitic mass] by Automated count 32.4 pg 27-33 [facility] Erythrocyte mean corpuscular hemoglobin concentration [Mass/volume] by Automated count 32.8 g/dL 32.0-[facility] distribution width [Ratio] by Automated count 13.2 % 11.5-14.5 [facility] Platelets [#/volume] in Blood by Automated count 159 10*3/uL 150-400 [facility] ID Date Data Source [id number] 06/26/2021 01:32:01 PM EDT [facility] Name Value Range Interpretation Code Description Data Kaylen rce(s) Supporting Document(s) [facility] LFCYUr9cQgSHUsXqs4XaYuOeWHRpXP2kvmw9H6U3aZDfH9EygYTbh0ylN3HoF1YyWOVkHEVTBF7XoUYf jb2 [file] CLINICAL STAFF PHARMACIST/e0pfZUrqUV2k653X/oOmtU/2NexiG3D+Kt6/2sIpNg8sr//5U/2CWC5K8o733+rfWmngA8X7vzzax es5c+/DIV1l+5McG1ph6Dn/P5bQlxIlBRy8Rnztx/s Hq1z/uWU39qi/QZKqp/fKXcdz0Y9wvF2ydNjS/KMOuH+f8+wCp3GDO/Xd6+ydaNRv9HT/Ly2a14lgygf 59eh+3BDuR7NAhuuoerojy3KYo7/3a+Vu3AN05d7Xib04l2J61g1izNb//o9nT/mzfl9tmd4Y5t/Yrlc 2m2a+ql4+8N81+2a4kIT1/5LV92aPfdogXv9jLdASQ TvgHp/sZbNfqG988D2acIavxN5y5wJ8VI6/uZbRv+q/Vm/5j3KG9fsiOpV/t0vbDcqzClFmj4gxa3kZJ zT+pynuXm4Jzx9K1OnOdHW4vblvSVFN7Q03ThJ3vpa2W5bd6jmrn+Zn8LAMu+bLs73gFN9e6E5QSorMu vORJk24kjuD+qhta162RtOs/GuykTdhVegb1YOmdfv /FIU2f4qr87qKgD87tS2olNi+x2HCsH7R7yB6CHjHaW5KcF/a3gmfEq8Da4BO246k8CR+grcOV+uA0/6 BdY/9AZLlsf3G2k4N2uR/oZdV/pR1Of5Dze/GaTjpVvrKYoKnylcXRTJWvTJ+ckm4t5201k06H3mq6tx Dozier+Bhqa5Cw+onfn9e2Pl+gzf/O+P25M35/brzfXXP9 5Fonhtvl1z017kfvjUcPbjpZRn+eL97a0elz2q/jGH0jT0k/sv6b/crWgNmvoox6/W0pyuB0+7ry/MbC +yJ0sgutbH5xCSp+dl25Py+tj1iNtj1cEX+4bK2y2mkNvva9uT4NF7dn/qP2EwTPT726F4PBWik/Wjh/ tXD+lbX84Su06uiMpbnK8zCnV50N1phycjZTw4O5Wg 7DviEwO1JbLU+7Zd7vUDCJVl59L2uVuY7bRBe+eaAIO1hA+Z6VC26QZz0oc/oEZRD7Agbt+edVO+o76g K2mqVK9u394vJ2LZ6Mm1gtfBUiDnwhgjkiUc8xckmVaOntJ08H1hgh6jsGhc+cb1+ba24R27FwN50JXu jPsDw/g9Xj/baJ9vF+28L1G/YP21t61sZMp/Oiq+f5 9ULR3losI+op4ztwU+i28cB2YZ/H99vx/EU2yf1miKY3wJ+pjdpR6eb/GZK0JBr+7S8onuIskb5coY3y ON++lMY62Q3g4m1fPwW+8yNrWvz8eiK/1EBY2piaP1720O28wlA35GlmmPV32wWK/54q5a42Fe3pE+Xn DKchZ55yA40xdRWi9sdqJ3t4z8+sgfHifPsy+1W3so 5X/++Qbhon4m+Vr+zf0pQ2vsVZfq2Y91Zv4R/amcal/lLpNQ48T27ma/oHDVJzqX/QfG1L/PG32oZss1 EFW5mfM+x+TT/+x6X+SpuZYxxw8FyQ/+Bmaih51QkPKjAK70LF27NtK66ny0n3CeTU6lzA9b9Ep/lpR+ JOwp1W262E+tjmjG6Y/2GfkN6cO6Jlo7l1t91d8H77 v+YRx5i0ca0me2Dio27PX/dG10LBKo4pDHjm3Vb3dTm+EmH66aB7F6bH/8187461WEfz9/Y4hY7wU99s n/Xb9e5fOc4/Cwrmd35Q19nlU9v7p7jl8G/JDgvH9zfvA+YfVPln+fkrK/yIEdNT1bK+PtlYhl7Fi4d2 un/Dl0Yd9p0KJ6tBJh2iBr/p9dvkq+Cedozs6m0GBt HR5kBdN7n3s4HIrht6Aw+55W9b0hgb4DqUA+0k5XyH6P+0v1C/cP0+8u2+Cq04r81jfhabsA+yy7aA71 T5fEa6dK/a0ZdboDg3R3kYufla4b61n1asuj9+gdbqhQ4ay5qpgyrx1kPBTuvNQ6AMHQUyY/noBVvlq1 M+etxW+cr0iG3+Jx5tww5nwmk5tbk813blCsi6O0iW 48DJ3Wxdr6jp/O82/6Cuve3+QS8f/TwcaHL82YP/cLt/5Ztc96ws2kwklE41Ox2jhLTazZS8z4nLW5Mz rbm4GiH40TRJ9kbn/1yZ1D76jzfcXv/+dUDM5vwcavqxS6uVm9pulUixU7/DlvHdW+Ud51t0wno7e+6W 18L3uoe+CvqC29nmGVhiuy20UZc/u57+/d4iyUbmbG 5hm3/P7tL3A7U/8F15v737s+tdt66uxM/vGs7deWArrF7oG0QsKR/ngwBI6so3YK8f4U/akucJN/Jfbe S/2gXJggqaWPuma2sRuA+2JeN/d4eXSpmOn8hh76Hm/O82+weBZx5mMpMogUau+iUjipZj0u7a+a828l 9tk6/5fjPwlEbO3aySyMhDUxck2Bt2R7rP4K/Up/y8 kf9qI//JCuem5VK12Ro44Ru71D0uD+89kJ04qL9Fnw0s1jIy/rEmO2PsVTinuh22qkNTymj3z/7BPfN8 5Ea33Ej+dh2AD7swjY3zLYdz9k3j2X/aK/Pn7JX6/v0Ai0FEre/b/ZICBe1OaiQmgfUpLpeUxz6kO+qD G/GDG/FNa1J2uK+1V/r3N/JfbeS/2sh/tZH/aiP/1U b+r397Bkk7a/bG97vx/SL/1d6C/qQ+uJH/apt/0L4X8w/a/6iRUtLm2m34ka7NDp4qvw5+2iGLja2SVD +qqxi7ZKiSQriCeMs/hMqslrvzUqVBhd+CLOCK REPAIRER+G39OOe+DuPO101PY/pyVTmAkzisWGKL5afj7zocXXQo [file] fvPxq2+//vWn73/4+vM//shelter+yuEh6iT63/00jKO35 76+P7T5++//vTrL7/5k+J3lrjT6Vy8tru4uX4Z25a22mb5v/36p99//c03X37++rtv/8zVz//wc/W333 37kx9++emrr//2668+vv728/df/uTXn+6fr7/61Tdffv/x1Xff/ozXKh3zsOt8p++++m9/pqXio/zF19 9+/Yv7wb/+7pvPX/7dp4+vvv/035p5Fh7/+933H9/8 +jELg4wHy/uqE6yw15m97v9/mcum91pJn9/7Xm/69g0s867x//AoEtU2zARd//B//+Ff//C/fvLNf/7h 9x//9Jd/7jiCbuAJfGuWdw54za2/fT/rp/ase8b/6uN+0anxb1ml12O056M/+wQov346B649ex9Xgb/6 8emrv/dQqxFE8UXKO/v187s2fF2gs60+/+lnH//w9e wxJgv7fKr4U4o6gq4++qmtmFK/uOZf/ZlmHjHn/+cNblo7ap/lQkZNm7060j20y4+//dVN/vwfP//8F3 +eqBdfdqh39a+//++//ePvfvMvH//Sz2773Do//vj7P/zHj3/18ek//sdvfv/bH++pfhJ//9NfftyTuf 6m9r+r6i3NpkkgAz96b/+y9ko0W+V3v/ubf+Nz9yrJ LtfN/t2vwW/z6fmOg94+/1HrChmr2z++/mdOc3c2cY/47LcIyhjkBaKvB77Sc2hV85g7u/6ofzpZivKj +8Nv/vtv/vhHnasvPj7+2/6Dz72o9WxphJ9mS55dM4HH0O54kj435gj5whzceUlua0/pI12pxLukccg4 /lu6dajw/+b3//7XH3/88d9/65d6GnC+NLmDt5Mi+I Y99bO589/adrB++f3Hb3//77/543/8+K9/thLAvAmfa69GW6Q1nrGE/Pvvf/j4l/95d/23f/a4j9ovEj f+mB4o6tW+/vPf/P3nf+Z73lcF/09ug7Yq7Nxnu8z9LP46ux+Z+BPjexeijdd9j/N2WL/8yfc/+fzx4/ /zm3/7r1/GyU5BqmUpN77/9oy930j4tbk/+cfXFvZ+ Eb/61T2lw9e/uF/9+D//+cd/++2Pv/+v959p+P4Pf/jdF3/Cje5+84d//tYBKwRHEwwmwfVA64/88//5 +9/+8/2ELz5++i3qJSrLLEpgo/37vWL+bG945E84VF6C/uWP/+M3H+XjD//94/IX2b1gWaqr3k/P1+n/ ux+fbuLZmT4+/ezzF8/faysf/Kx88ltfpib+i2efe7 x+4nu46vjisxlHs/e1T+Skmha563Me/j+dY6juPnXjHXN2vxXunFjumzJxPnrDVAekUGRxUjp6CQ4HcR DzRAZhR4U4NEQljt8bRMTaEFKgkNChFcVpWIEZTI5SbWSdWB7FLKj5EIMtOQIwFeTmSJBapmJ9FBSiMO WtUZWuZ2WqudSsmXAaEUIoYc9+VB2zz7GdAcYqVBHi Xal4DG1TqDClZM5XsOAxlZ0qoiRwZ576ftWnFBBmIioda1OzAOgvBHFBTN7RFFR2VMK1GSHtEo5+ZW5k z9MfIrTvRWOdNyg6SH2XgMQpz3WnCX1BQ5IcTTFcMTSYAJH6l8MnISEhnqrpkfofS3WzJGB2nU1fVVJ3 ZSAoRDoyMDIxMDgyNDEzMzIpIAogICAgICAgICAgIC QrJDc1rYDyEP2KA4LpFJTlZPDMRGQgywJzNj6pDHIYX5FnMQ8QG0aJJGrfBwhiJNkgRZkvG7X6UqdtJ4 McVR8EZ8FkYNJvYIWCCXUnupItTP1KemQgeP7hJViKOQAYHTbKDAykUrK5l04oxuZXNUYmIEXbFQigKB HiFNTgWIHyDZHxGJTcPHYsZNBcAQ9GL2TuEEHlQAPT TSZ1t7RySZTqdcshknovTw0fygUnXrc+UwysEKVue1JzLUddI5N2pHBdC8TmL0HqNC6VaOWoBApmYFIh ZHVtLXBbG217pvFmIK1+MR9po0VhMmweIOCHGBZrOCPmMGTsCOD4VxNzMVUaFAAsOEQbTqM7DiNtKhWQ YVOsFYM4FHx2OoAkAGIePSIqSQinVMYcLRo9YODpZF VhOWTbUL3wReQhCKOqZmU7DVSmQWTpGTGfioJFLFScTKBhNTPyTGX3GBUnSFPxNPgiFHWsIZLoTIP4BB OoLSHnQN2lZwSmSMUtQKHlGpphYEZcGDIrweYXMLWgRDNxFRR1DsHlNPJpODEjUDoaJBHpPIQeArv7UT YyXDAxEA8pDgKiFJAyIWC4OZkbRUTlBHQakuKUWXFm MFXyURQzTnTcTDKuHFCfMRkdYXGtGXOwIaXhTPLlCTGrBI3xNxFoKPIkOHA1CZMnBVQfIQUiolSVRYAq WGJyOUh0FAVtFNLrPNJwFWawFOMlDOFsGGT7QFSjKFRuVD3rDaVtVXIdKLSiGJJbCYWvPSApngASTVIa WXXkNII2DOEhZRVmUWHiFRtwVMXqFNQdXkz5LFUaOP LrSY5kHtHiFNAmJQE2TQNuCENmRDKugpGTQJNiRDT7EMX7JiMoPRUsSIWtINrdBAQyCVHwLdA2DGRaZG NgCU2uBzToXZJoSUS7IxQrRIXuVUDqhjDMQPDyHDCyJIG7LlJfTYBtYPXcUYelKPWgHSUhSQGlYXS6MP Y7ROAuIbWhLDahDCMHEBaSD4KmtiViEtHCD7liFn2i VqWhDGQEJ1Aqo1SfENAnXZNIHi1+TvB9LTB2rGSdTfu1USfkJcjbRORQNi== ID Date Data Source [id number] 12/05/2020 01:01:09 PM [facility] Name Value Range Interpretation Code Description Data Kaylen rce(s) Supporting Document(s) [facility] NYVTMc5gDrUDDaZjh8HxGkUrTHFjJE7kpau7U4M4vDVbZ5SreGPfy6jaJ7UaG0VmFKHxYIAKXC5ChFYt jb2 [file] XZZ4Gkb6LrNQMsOXDZMp0+MpZ3WLS6uGIyNfg2ReA0WwhuIFGRJp== ID Date Data Source [id number] 12/05/2020 09:13:06 AM EST [facility] Name Value Range Interpretation Code Description Data Kaylen rce(s) Supporting Document(s) Progress Note [facility] WYRRLv2mVsTRSfJl22/NOGvfDTLtq6ToYCzzPMh6IKvuSKVqW6BtYWF1iM4pAEI2OQyUPjCdIrHiPkAk lbm [file] Rosa Isela/i59cr6dpwiMqVGi0HlMffezd+O9bgDra1h8I1LY [file] AgICAgICAgICAgICAgICAgICAgICAgICAgICAgICAg LUFuYBUcVSUnYCDyZRCgGWCkYOYyLXRiURSyYSUlWZClFCLvSGSmKIDtNR0YBCLxPESoKUCtGPOeDORh ICAgICAgICAgICAgICAgICAgICAgICAgICAgICAgICAgICAgICAgICAgICAgICAgICAgICAgICAgICAg XGYhZHQoMQMeBMLiFOTvENTjWRJbOISeHU8PAMBhEC AgICAgICAgICAgICAgICAgICAgICAgICAgICAgICAgICAgICAgICAgICAgICAgICAgICAgICAgICAgIC NcKLKeRLLzPKZaQTWhKXZaHUZyYGSyKYSsIAXhNWCvUEGnLU2CGHJbROLnHZAnJFXfSIRhBCOzZWAsZO AgICAgICAgICAgICAgICAgICAgICAgICAgICAgICAg XUIvYLCwNAVyQQEqVZRaLPBcNKDmOXOpDWRwVVZmCVEiNSUeYBQgTHFqNGLjKK1MNIHgTPJdMBBtSJQs ICAgICAgICAgICAgICAgICAgICAgICAgICAgICAgICAgICAgICAgICAgICAgICAgICAgICAgICAgICAg FOAbJKBaHBPrKUUwRHAbTPCoHHYqMHAuKXQnCN7ZJE AgICAgICAgICAgICAgICAgICAgICAgICAgICAgICAgICAgICAgICAgICAgICAgICAgICAgICAgICAgIC JpKNTaWQXuDGGsXUDnSTXvXAPuHQYcRXUuFWHdIGIzUXXeKVYpYE2ATZSrPFMcNCYtOKYcRMCrYHFcIK AgICAgICAgICAgICAgICAgICAgICAgICAgICAgICAg PYPlVTWvUFJrHCFtBHSrWCClETCtXJFwYYFpDCBuQLIfJQEyXOQmJAVgWQUdBWEyUH9MCJAsHZOuVWKi ICAgICAgICAgICAgICAgICAgICAgICAgICAgICAgICAgICAgICAgICAgICAgICAgICAgICAgICAgICAg ICAgICAgICAgICAgICAgICAgICAgICAgICAgICAgIA 0KICAgICAgICAgICAgICAgICAgICAgICAgICAgICAgICAgICAgICAgICAgICAgICAgICAgICAgICAgIC GmRSMqAKWiAJZrQZScCTIaYMIiQIFzFNDoIYDoNRVxAJJmDBMaNZPeNE9EBRMoGPAaAQZvYWIrPTMoXR AgICAgICAgICAgICAgICAgICAgICAgICAgICAgICAg HNZvWHHlXRBfALGkGMAyDGJaNQBsRIGrDKJaBSXvVEYtVCIkOAGeHLFhGQEiSBFkJEVlRE0WSI91bNMl i3I5RVKxII4ijvv/Yn4FEPrstoHdgSWlIY0IAzJqDG7ceo0YQlNnGD2wyx1HZBkWPaDnW6T1hWWfPDDd ICEPJrLcN20jEUxaVc64WJvgULTnOqHfFMr4Ho0KAd MsF1zpRDMvOrY1YQBaJkG8QJTcSuY8EYZuVrLqUMNdCMDqQVWkWFNPFMH2EQSdPwXhWrLiJVQmQX9VBK QoY725wrWfCe5RMx9HHsCkYB3wvi2QBbplPEOlTdtGSbu0ICjdOH7OwEMbzIUeALYdKFXSSaNuG0nfk8 YxXpfhVHIXAMcoWI1Fn9HpqKPaDZe+Yj5JUC4ab4Gh MTyvHUTsWP5fyy4YFHcQHrJiY1HjtXkbOHPgh3kkHNCkMN0fhAHxOSH8OCIqZTF7eLOSATftAE5hAYOK ENS0FFRzVY4fRTEvBQCsCjBfKVXFJB1ZLAXdJDDfbMYmPMUrVMXYGT8LFNkgHXD2GEMuomUnxCXaNMsl SE7AUOKwvjRmUheyPMXUKBc+Ya9SSX5gp9AkFQrqIX OkZD5rwa4KCGwPSaQjO8G5vCGnT4S0HKvyEs5ZBPGiKBZqLfQeODBCOIvjYG3NVY0cdnU7QG0TgHBqBS UxUZKipFOzNXy0W74oxTJnNGxpKV3HEKD+Silvia+Xo0BCEUpWVSoVEWgOmUoASLPEhLgJ9SiD7NNs2JbW7 PuOP11pOtvfvKrYXheKI2RDJ0cBIYtHRDGJT7SoRIg rI1efuQhTeNiIUAUZsOfL41eyVDeTFVoLLO9VRMzYx7BEKNdL2AvlaQmgOkhmjKyOZDkVAWTUE3DPXnd taHnfHNwqLklUZ51vKxiQP3JFz4OOeAuQE2dka9TxUMzJt9MUDV6VQ4HXPEaQRLfNFLuMVS2JZFjEdIx NDlwJBWeIMWxNBL5IWMdUQQiKQ4ESoAmPUOtOwE5Uk NwFIHtFZWisi2POGLyPQJaISN5JbIxHURnFZSgMJxhBTAnXFGfJLV5BUPdKZLtJG6TDaSnFMGjLAN9IB PuWLVtJARtjk3WRYSrHBKhCXH7UqRjCUXwIUGuBSjuYZZkQND0VMZ4EBRiARWhHJ0ZNvOkNKSeWKZ2XH PhYMOcWDMqev6YVEGdJAStJWQ7UNFdNUUbPHWrMDfr TMZoBTO7DeC5YNOwWFNyTA9PNmKiLYAuJGHfOUgjMCScCCMzzi0UCNAdKVRnTeG0BBPsDVMcVUJlTWtx DZZtJNM5RuPyOVKpCEHrFO1LPoKsLUWnPCM7UbnpUXGyIERhzs2QLLPwSMXaJTU6QSXvSBGzVAYlZEhv ZMUaDRH9KvZ9WYFdIKHdPV0WNqVzXPXbYRr3KaQjJW LdMHYkhb7AZJNsTDPmPAW9CIYnVHNyFRCwKCmjHILzNNTvEZZnELIxCIByFK5NXbQfBZYlEhKwMGfxVM IeMEVdtr3PULVrAIMmSJJ3GTAsPWHhPOWgFHggGJPsENXgODR1HNRxKNKlDA8GTjIxGACoHgC5PQWcFM LnTQMfsa0LNZUjVJNbVSqjIBKtMBFxEABtVRdcOZSj FAReOsN3OEYqPLKiDD9CPfEmMGEyOgX5BBBhLXJnIRQxgv0UZWRaADEiOjh3ZuArRRJyQCFkGHfwNJNd EFN4ILEuIMEmSUXrVE2CYoKeGNDsTiLdYUyyISQiHARgmd9IYKVyWLCfWZCzQgFfDVWiHYYcVKfdMSDd KCI0VrJ1ENMkHABjRB8QQxSuYSJqPmN3CGGgYQWrKQ Oepr2GVKQkBXMqPsLwWAFxCYJrEQNuNRwxENSrEDW8DuY4KIUjQDWdUC9AQdSaPIBvKdW8TWRaWXMlGT Lltu5KODBnAYKsOaRaRlUqPIUsTZNvJRhcXCKvWVP9ZrP4WJOsINYmIC1RPlGgPATfZew2JGZqRTOgCF Sjau7DGYTkQXUsJZviSaSzIMGdVWBhTKe3wbBevZLm XSg5KX5BG7CmhlStPBOFRl8Bo335YKJ4UGUuYs4EM1tgOb8kZDOnTXBXNq4BIZp1DES9EYsgNUEfURT5 TcB6THGcSJSaP9L6WUDpWXEbQxM+YDvuKbp4GUOiEuVjHAYhDMXcQkZzOEK0UybfBeS9EXQzLG6mUWGL Cj4+UVvdsMThoXylHMCFFoL8BCq8CUbaEXZGIx4C ID Date Data Source [id number] 09/26/2020 10:15:00 AM EST [facility] Name Value Range Interpretation Code Description Data Kaylen e(s) Supporting Document(s) Laboratory test finding (navigational concept) Laboratory test result [facility] Test: COVID-19 Nasal/Naspharynx Result: POSITIVE for 2019-nCoV Reference Units: Not detected NOTE: The COVID-19 assay is under Emergency Use Authorization(EUA) by the U.S. Food and Drug Administration. [facility] is designated as a high complexity laboratory by the Clinical Laboratory Improvement Amendments of 1988(CLIA) and is qualified to perform this test. ASSAY INFORMATION: Real Time RT-PCR ID Date Data Source [id number] 09/26/2020 12:00:00 AM EST [facility] Name Value Range Interpretation Code Description Data Kaylen rce(s) Supporting Document(s) 2019-nCoV RNA XXX RANDALL+probe-Imp [facility] This lab was ordered by [facility] and reported by [facility]. ID Date Data Source [id number] 08/24/2020 12:45:00 PM EDT [facility] ([facility] Name Value Range Interpretation Code Description Data Kaylen rce(s) Supporting Document(s) Laboratory test finding (navigational concept) Laboratory test result [facility] Test: COVID-19 Nasal/Naspharynx Result: NOT DETECTED Reference Units: Not detected Note: Please consider re-collection of a new specimen, if clinically indicated. Note: The COVID-19 assay has been FDA cleared by the U.S. Food and Drug Administration under the Emergency Use Authorization (EUA). [facility] is designated as a high complexity laboratory by the Clinical Laboratory Improvement Amendments of 1988 (CLIA) and is qualified to perform this test. ASSAY INFORMATION: [id number]. Patient samples for this assay have been pooled. All positive samples have been individually repeated for confirmation. The pooling protocol is pending FDA review. ID Date Data Source [id number] 08/24/2020 12:00:00 AM EDT [facility] Name Value Range Interpretation Code Description Data [facility] rce(s) Supporting Document(s) 2019-nCoV RNA XXX RANDALL+probe-Imp [facility] This lab was ordered by [facility] and reported by [facility]. Procedure Social History Code Duration Value Status Description Data Source(s ) Smoking 08/30/2021 12:00:00 AM EDT Former Cigarette Smoker com pleted Former Cigarette Smoker [facility] ([facility] Alcohol intake 08/13/2021 12:00:00 AM EDT Current drinker of al cohol (finding) completed Current drinker of alcohol (finding) [facility] Alcohol intake 08/10/2021 12:00:00 AM EDT Current drinker of al cohol (finding) completed Current drinker of alcohol (finding) [facility] Alcohol intake 06/26/2021 12:00:00 AM EDT Current drinker of al cohol (finding) completed Current drinker of alcohol (finding) [facility] Tobacco use and exposure 06/26/2021 12:00:00 AM EDT Never used co mpleted Never used [facility] Cigarette pack-years 06/26/2021 12:00:00 AM EDT UNK completed [facility] Cigarettes smoked current (pack per day) - Reported 06/26/20 12:00:00 AM EDT UNK completed [facility] Smoking 06/26/2021 12:00:00 AM EDT Former smoker completed Former smoker [facility] Alcohol intake 12/04/2020 12:00:00 AM EST Current drinker of al cohol (finding) completed Current drinker of alcohol (finding) [facility] Vital Signs ID Date Data Source UNK Name Value Range Interpretation Code Description Data Source(s) Systolic blood pressure 117 mm[Hg] 117 mm[Hg] M [facility] ([facility] Diastolic blood pressure 69 mm[Hg] 69 mm[Hg] [facility] ([facility] Heart rate 84 /min 84 /min [facility] ([facility] Body temperature 97.2 [degF] 97.2 [degF] [facility] ([facility] Respiratory rate 18 /min 18 /min [facility] ( [facility] Body height 71.5 [in_i] 71.5 [in_i] [facility] ([facility] 5'11.50" Body weight 207.12 [lb_av] 207.12 [lb_av] [facility] T ([facility] Oxygen saturation in Arterial blood by Pulse oximetry 96 % 96 % [facility] ([facility] [place] body weight 172 [lb_av] 172 [lb_av] [facility] T ([facility] Body mass index (BMI) [Ratio] 28.5 kg/m2 28.5 k g/m2 [facility] ([facility] Diastolic blood pressure 68 mm[Hg] 68 mm[Hg] [facility] ([facility]) Body height 72 [in_i] 72 [in_i] [facility] 6'0" Oxygen saturation in Arterial blood by Pulse oximetry 95 % 95 % [facility] ([facility]) [place] body weight 178 [lb_av] 178 [lb_av] [facility] T ([facility]) Body weight 211.00 [lb_av] 211.00 [lb_av] [facility] Heart rate 82 /min 82 /min [facility] ([facility]) Body temperature 95.7 [degF] 95.7 [degF] [facility] ([facility]) Systolic blood pressure 122 mm[Hg] 122 mm[Hg] [facility] Body mass index (BMI) [Ratio] 28.6 kg/m2 28.6 k g/m2 [facility] ([facility]) Systolic blood pressure 154 mm[Hg] 154 mm[Hg] [facility] Diastolic blood pressure 78 mm[Hg] 78 mm[Hg] [facility] Heart rate 63 /min 63 /min [facility] Respiratory rate 20 /min 20 /min [facility] Oxygen saturation in Arterial blood by Pulse oximetry 94 % 94 % [facility] Body temperature 36.61 [place] 36.61 [place] [facility] Body height 182.9 cm 182.9 cm [facility] Body weight 95.255 kg 95.255 kg [facility] Body mass index (BMI) [Ratio] 28.48 kg/m2 28.48 kg/m2 [facility] Diastolic blood pressure 75 mm[Hg] 75 mm[Hg] [facility] ([facility], [facility]) Systolic blood pressure 106 mm[Hg] 106 mm[Hg] [facility], [facility]) Heart rate 68 /min 68 /min [facility] ([facility], [facility]) Respiratory rate 16 /min 16 /min [facility] ( [facility], [facility]) Oxygen saturation in Arterial blood by Pulse oximetry 95 % 95 % [facility] ([facility], [facility]) Body temperature 98.0 [degF] 98.0 [degF] [facility] ([facility], [facility]) Body weight 215.00 [lb_av] 215.00 [lb_av] [facility] T ([facility], [facility]) Body height 72 [in_i] 72 [in_i] [facility] ([facility], [facility]) 6'0" Body mass index (BMI) [Ratio] 29.2 kg/m2 29.2 k g/m2 [facility] ([facility], [facility]) Heart rate 72 /min 72 /min [facility] ([facility], [facility]) Respiratory rate 18 /min 18 /min [facility] ( [facility], [facility]) Oxygen saturation in Arterial blood by Pulse oximetry 93 % 93 % [facility] ([facility], [facility]) Body mass index (BMI) [Ratio] 29.2 kg/m2 29.2 k g/m2 [facility] ([facility], [facility]) Systolic blood pressure 136 mm[Hg] 136 mm[Hg] [facility] ([facility], [facility]) Diastolic blood pressure 83 mm[Hg] 83 mm[Hg] [facility] ([facility], [facility]) Body temperature 98.0 [degF] 98.0 [degF] [facility] ([facility], [facility]) Body weight 215.00 [lb_av] 215.00 [lb_av] MED[facility] T ([facility], [facility]) Body height 72 [in_i] 72 [in_i] [facility] ([facility], [facility]) 6'0" Systolic blood pressure 155 mm[Hg] 155 mm[Hg] M [facility] ([facility] Diastolic blood pressure 76 mm[Hg] 76 mm[Hg] [facility] ([facility] Heart rate 64 /min 64 /min [facility] ([facility] Body temperature 97.1 [degF] 97.1 [degF] [facility] ([facility] Respiratory rate 18 /min 18 /min [facility] ( [facility] Body height 71.5 [in_i] 71.5 [in_i] [facility] ([facility] 5'11.50" Body mass index (BMI) [Ratio] 29.9 kg/m2 29.9 k g/m2 [facility] ([facility] Body weight 217.12 [lb_av] 217.12 [lb_av] [facility] T ([facility] Oxygen saturation in Arterial blood by Pulse oximetry 96 % 96 % [facility] ([facility] Systolic blood pressure 143 mm[Hg] 143 mm[Hg] M [facility] ([facility] [place] body weight 172 [lb_av] 172 [lb_av] [facility] T ([facility] Diastolic blood pressure 78 mm[Hg] 78 mm[Hg] [facility] ([facility] Diastolic blood pressure 72 mm[Hg] 72 mm[Hg] [facility] ([facility] Systolic blood pressure 141 mm[Hg] 141 mm[Hg] M [facility] ([facility] Heart rate 67 /min 67 /min [facility] ([facility] Body temperature 97.6 [degF] 97.6 [degF] [facility] ([facility] Respiratory rate 17 /min 17 /min [facility] ( [facility] Body height 71.5 [in_i] 71.5 [in_i] [facility] ([facility] 5'11.50" Oxygen saturation in Arterial blood by Pulse oximetry 94 % 94 % [facility] ([facility] [place] body weight 172 [lb_av] 172 [lb_av] [facility] T ([facility] Diastolic blood pressure 75 mm[Hg] 75 mm[Hg] [facility] ([facility] Systolic blood pressure 148 mm[Hg] 148 mm[Hg] [facility] ([facility] Body weight 220.38 [lb_av] 220.38 [lb_av] [facility] T ([facility] Body mass index (BMI) [Ratio] 30.3 kg/m2 30.3 k g/m2 [facility] ([facility] Body height 72 [in_i] 72 [in_i] [facility] ([facility], ) 6'0" Body weight 215.00 [lb_av] 215.00 [lb_av] [facility] T ([facility]) Body mass index (BMI) [Ratio] 29.2 kg/m2 29.2 k g/m2 [facility] ([facility]) [place] body weight 178 [lb_av] 178 [lb_av] [facility] T ([facility]) Body weight 97.524 kg 97.524 [facility] Body surface area Derived from formula 2.20 m2 2.20 m2 [facility] ([facility]) [place] body weight 178 [lb_av] 178 [lb_av] [facility] T ([facility]) Body weight 97.524 kg 97.524 kg [facility] ([facility]) Body surface area Derived from formula 2.20 m2 2.20 m2 [facility] ([facility]) Body height 72 [in_i] 72 [in_i] [facility] ([facility]) 6'0" Body weight 215.00 [lb_av] 215.00 [lb_av] [facility] T ([facility]) Body mass index (BMI) [Ratio] 29.2 kg/m2 29.2 k g/m2 [facility] ([facility]) Body height 72 [in_i] 72 [in_i] [facility] ([facility]) 6'0" Body weight 215.00 [lb_av] 215.00 [lb_av] [facility] ([facility]) Body mass index (BMI) [Ratio] 29.2 kg/m2 29.2 k g/m2 [facility] ([facility]) [place] body weight 178 [lb_av] 178 [lb_av] [facility] ([facility]) Body weight 97.524 kg 97.524 kg [facility] ([facility]) Body surface area Derived from formula 2.20 m2 2.20 m2 [facility] ([facility]) Body height 72 [in_i] 72 [in_i] [facility] ([facility]) 6'0" Body weight 215.00 [lb_av] 215.00 [lb_av] [facility] ([facility]) Body mass index (BMI) [Ratio] 29.2 kg/m2 29.2 k g/m2 [facility] ([facility]) [place] body weight 178 [lb_av] 178 [lb_av] [facility] ([facility]) Body weight 97.524 kg 97.524 kg [facility] ([facility]) Body surface area Derived from formula 2.20 m2 2.20 m2 [facility] ([facility]) Systolic blood pressure 141 mm[Hg] 141 mm[Hg] [facility] ([facility] Diastolic blood pressure 84 mm[Hg] 84 mm[Hg] [facility] ([facility] Systolic blood pressure 142 mm[Hg] 142 mm[Hg] [facility] ([facility] Body temperature 97.1 [degF] 97.1 [degF] [facility] ([facility] Diastolic blood pressure 81 mm[Hg] 81 mm[Hg] [facility] ([facility] Heart rate 70 /min 70 /min [facility] ([facility] Respiratory rate 14 /min 14 /min [facility] ( [facility] Body height 71.5 [in_i] 71.5 [in_i] [facility] ([facility] 5'11.50" Body weight 220.12 [lb_av] 220.12 [lb_av] [facility] T ([facility] Oxygen saturation in Arterial blood by Pulse oximetry 96 % 96 % [facility] ([facility] [place] body weight 172 [lb_av] 172 [lb_av] [facility] ([facility] Body mass index (BMI) [Ratio] 30.3 kg/m2 30.3 k g/m2 [facility] ([facility] ID Date Data Source [id number] 09/12/2021 07:08:47 AM [facility] Name Value Range Interpretation Code Description Data Source(s) WEIGHT RECORDED 205 lb 205 lb [facility] Body height Measured 72 in 72 in [facility] ID Date Data Source [id number] 06/19/2021 09:44:36 AM [facility] Name Value Range Interpretation Code Description Data Source(s) PREFERRED NAME [facility] ID Date Data Source [id number] 06/04/2021 09:24:03 AM [facility] Name Value Range Interpretation Code Description Data Source(s) PREFERRED NAME [facility] ID Date Data Source [id number] 02/22/2021 11:38:31 AM [facility] Name Value Range Interpretation Code Description Data Source(s) PREFERRED NAME [facility] PREFERRED NAME [facility] ID Date Data Source [id number] 12/05/2020 01:01:09 PM [facility] Name Value Range Interpretation Code Description Data Source(s) WEIGHT RECORDED 219 lb 219 lb [facility] Body height Measured 72 in 72 in [facility] PREFERRED NAME [facility] ID Date Data Source [id number] 11/14/2020 09:07:46 AM [facility] Name Value Range Interpretation Code Description Data Source(s) PREFERRED NAME [facility] PREFERRED NAME [facility] Patient Treatment Plan of Care Planned Activity Planned Date Details Description Data Source (s) Methimazole 5 MG Oral Tablet 06/27/2021 12:00:00 AM [facility] Ramipril 10 MG Oral Capsule 06/26/2021 12:00:00 AM [facility] 24 HR metoprolol succinate 100 MG Extended Release Ora l Tablet 06/26/2021 12:00:00 AM [facility] Ramipril 10 MG Oral Capsule 06/01/2021 12:00:00 AM [facility] 24 HR metoprolol succinate 50 MG Extended Release Oral Tablet 03/14/2021 12:00:00 AM [facility] rivaroxaban 20 MG Oral Tablet 12/04/2020 12:00:[address] [facility] Rosuvastatin calcium 40 MG Oral Tablet 12/04/2020 12:00:[address] [facility] rivaroxaban 20 MG Oral Tablet 02/28/2020 12:00:00 AM [facility] Rosuvastatin calcium 40 MG Oral Tablet 02/21/2020 12:00:00 AM EDT [facility] Amiodarone hydrochloride 200 MG Oral Tablet 03/17/2019 12:00:00 AM EDT [facility] cetirizine hydrochloride 10 MG Oral Tablet [facility] Esomeprazole 40 MG Delayed Release Oral Capsule [facility]
[2021-09-17 11:38] LABS: CK-MB VALUE MASS 1.6 NG/ML (<3.6); CPK CREATINE PHOSPHOKINASE 26 U/L (39-308); MB/CK RELATIVE INDEX 6.15 (< OR =4); TROPONIN I < 0.02 NG/ML (< 0.10)
--- NOTE | 2021-09-17 11:38 | REP ---
INDICATION: L1 fx. COMPARISON: None. TECHNIQUE: Axial noncontrast images of the lumbosacral spine from mid T12 through mid sacrum with coronal and sagittal reformations. This CT examination was performed using the following dose reduction techniques: Automated exposure control, adjustment of mA and/or kv according to the patient's size, and use of iterative reconstruction technique. FINDINGS: There is an acute compression fracture at L1 with approximately 50% loss of vertebral body height and moderately retropulsed fracture fragment narrowing acute canal stenosis to approximately 8.5 mm AP diameter. Remainder of the lumbosacral spine demonstrates age-related osteopenia and moderate/advanced multilevel degenerative changes. IMPRESSION: 1. Acute compression fracture at L1 with 50% loss of vertebral body height and retropulsed fracture fragment narrowing the spinal canal. Correlation with neurological evaluation is recommended. <Electronically signed by Morgan Reyes > 09/17/21 [id number]
[2021-09-17 11:49] LABS: BLOOD UREA NITROGEN 13 MG/DL (7-18); CARBON DIOXIDE LEVEL 29 MEQ/L (21-32); CHLORIDE LEVEL 104 MEQ/L (98-107); CREATININE FOR GFR 1.05 MG/DL (0.70-1.30); GLOMERULAR FILTRATION RATE > 60.0 (>42); GLUCOSE, FASTING 134 MG/DL (70-100); SODIUM LEVEL 139 MEQ/L (136-145); THYROID STIMULATING HORMONE < 0.005 uIU/ML (0.358-3.740)
[2021-09-17] MEDS ORDERED: ONDANSETRON 4MG/2ML VIAL IV ONE (12:45)
[2021-09-17] MEDS ORDERED: MORPHINE 4 MG/ML 1ML VIAL/SYRINGE (J2270) IV PRN (12:45)
--- NOTE | 2021-09-17 12:54 | REP ---
INDICATION: supine please - has L fx COMPARISON: None. TECHNIQUE: Portable AP view of the chest FINDINGS: Cardiomegaly is appreciated along with increased interstitial markings, diffusely prominent pulmonary vasculature, and left-sided airspace disease including lower lobe consolidation and suspected pleural effusion. No pneumothorax. Skeletal structures are grossly intact. IMPRESSION: Findings likely representing cardiomegaly with early CHF. <Electronically signed by Morgan Reyes > 09/17/21 [id number]
[2021-09-17] MEDS ORDERED: FUROSEMIDE 20MG/2ML VIAL (J1940) IV ONE (13:00)
[2021-09-17 13:23] LABS: ALBUMIN 2.3 GM/DL (3.2-5.2); ALT/SGPT 34 U/L (12-78); BILIRUBIN,DIRECT 0.4 MG/DL (0.0-0.2); BILIRUBIN,TOTAL 0.7 MG/DL (0.2-1.0); NT-PRO BNP 2537 PG/ML (<450)
[2021-09-17 14:18] VITALS: BP 116/73
--- NOTE | 2021-09-17 18:32 | ECGEPIP ---
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
== END 2021-09-17 14:20 | disposition short-term general hospital (02) ==
LOC: EDBD 10:12 → M ED 10:12
DX: S32.010A Wedge compression fracture of first lumbar vertebra, initial encounter for closed fracture (principal); V48.5XXA Car driver injured in noncollision transport accident in traffic accident, initial encounter; Y92.9 Unspecified place or not applicable; Y93.9 Activity, unspecified; Y99.9 Unspecified external cause status; R55 Syncope and collapse; M47.812 Spondylosis without myelopathy or radiculopathy, cervical region; I71.4 Abdominal aortic aneurysm, without rupture; I50.9 Heart failure, unspecified; I48.91 Unspecified atrial fibrillation
CPT/HCPCS: 70450; 71045; 72072; 72110; 72125; 72131; 80048; 80076; 82550; 82553; 82803; 83735; 83880; 84439; 84443; 84484; 85025; 93005; 93041; 96374; 96375; 99285; J1940; J2270; J2405

== ENCOUNTER → 2021-11-23 | Outpatient (CLI) | payer OTHER | LOC: M RAD 12:54 | PROVIDERS: ATTEND Orthopaedic Surgery | DX: S32.001A Stable burst fracture of unspecified lumbar vertebra, initial encounter for closed fracture (principal); X58.XXXA Exposure to other specified factors, initial encounter; Y92.9 Unspecified place or not applicable; Y93.9 Activity, unspecified; Y99.9 Unspecified external cause status; M85.80 Other specified disorders of bone density and structure, unspecified site; M41.9 Scoliosis, unspecified; M51.36 Other intervertebral disc degeneration, lumbar region ==

== ENCOUNTER → 2021-11-23 | Outpatient (CLI) | payer MEDICARE, OTHER ==
[2021-11-23 14:12] LABS: FREE T4 0.64 NG/DL (0.76-1.46); THYROID STIMULATING HORMONE 4.12 uIU/ML (0.358-3.740)
== END ==
LOC: M LAB 12:58
PROVIDERS: ATTEND Internal Medicine Endocrinology, Diabetes & Metabolism
DX: E05.90 Thyrotoxicosis, unspecified without thyrotoxic crisis or storm (principal)

== ENCOUNTER 2021-12-06 07:37 | Emergency (ER) | payer OTHER ==
[~2021-12-06] VITALS: Ht 182.9 cm; Wt 93.2 kg
[2021-12-06] MEDS ORDERED: PRED20TA (08:04)
[2021-12-06 08:27] LABS: BASO # 0.1 10^3/uL (0.0-0.2); BASO % 0.9 % (0.0-1.0); EOS # 0.1 10^3/uL (0.0-0.5); EOS % 0.8 % (0.0-3.0); HEMATOCRIT 43.8 % (42.0-52.0); HEMOGLOBIN 14.3 g/dl (13.5-17.5); LYMPH # 1.5 10^3/uL (1.5-5.0); LYMPH % 19.3 % (24.0-44.0); MEAN CORPUSCULAR HEMOGLOBIN 32.6 pg (27.0-33.0); MEAN CORPUSCULAR HGB CONC 32.6 g/dl (32.0-36.5); MEAN CORPUSCULAR VOLUME 99.8 fl (80.0-96.0); MONO # 0.7 10^3/uL (0.0-0.8); MONO % 8.2 % (2.0-8.0); NEUTROPHILS # 5.3 10^3/uL (1.5-8.5); NEUTROPHILS % 66.6 % (36.0-66.0); PLATELET COUNT, AUTOMATED 144 10^3/uL (150-450); RED BLOOD COUNT 4.39 10^6/uL (4.30-6.10); WHITE BLOOD COUNT 7.9 10^3/uL (4.0-10.0)
[2021-12-06 09:07] LABS: FREE T4 0.94 NG/DL (0.76-1.46); THYROID STIMULATING HORMONE 8.08 uIU/ML (0.358-3.740)
[2021-12-06 11:40] VITALS: BP 155/95
[2021-12-06 15:46] LABS: MAGNESIUM LEVEL 1.4 MG/DL (1.7-2.2)
== END 2021-12-06 11:57 | disposition home or self-care (01) ==
LOC: M ED 07:37
DX: I48.0 Paroxysmal atrial fibrillation (principal); T82.897A Other specified complication of cardiac prosthetic devices, implants and grafts, initial encounter; Z91.19 Patient's noncompliance with other medical treatment and regimen; E03.9 Hypothyroidism, unspecified; Z79.899 Other long term (current) drug therapy; Z79.01 Long term (current) use of anticoagulants

== ENCOUNTER → 2021-12-13 | Outpatient (CLI) | payer OTHER ==
[~2021-12-13] MED LIST changes: +PRED20TA
== END ==
LOC: M LAB 16:56
PROVIDERS: ATTEND Internal Medicine Endocrinology, Diabetes & Metabolism
DX: E05.90 Thyrotoxicosis, unspecified without thyrotoxic crisis or storm (principal)

== ENCOUNTER → 2021-12-24 | Outpatient (CLI) | payer OTHER | LOC: M RAD 12:12 | PROVIDERS: ATTEND Orthopaedic Surgery | DX: S32.001A Stable burst fracture of unspecified lumbar vertebra, initial encounter for closed fracture (principal); X58.XXXA Exposure to other specified factors, initial encounter; Y92.9 Unspecified place or not applicable; Y93.9 Activity, unspecified; Y99.9 Unspecified external cause status ==

== ENCOUNTER → 2022-01-14 | Outpatient (CLI) | payer OTHER ==
[~2022-01-14] MED LIST changes: -D31000TA2 PO; +VITA100093 PO
[2022-01-14 12:50] LABS: FREE T4 0.81 NG/DL (0.76-1.46)
[2022-01-14 16:17] LABS: THYROID STIMULATING HORMONE 1.69 uIU/ML (0.358-3.740)
== END ==
LOC: M LAB 11:49
PROVIDERS: ATTEND Internal Medicine Endocrinology, Diabetes & Metabolism
DX: E05.90 Thyrotoxicosis, unspecified without thyrotoxic crisis or storm (principal)

== ENCOUNTER → 2022-02-18 | Outpatient (CLI) | payer OTHER ==
[2022-02-18 19:51] LABS: FREE T4 1.25 NG/DL (0.76-1.46); THYROID STIMULATING HORMONE 2.05 uIU/ML (0.358-3.740)
== END ==
LOC: M LAB 16:32
PROVIDERS: ATTEND Internal Medicine Endocrinology, Diabetes & Metabolism
DX: E06.9 Thyroiditis, unspecified (principal)

== ENCOUNTER → 2022-02-21 | Outpatient (CLI) | payer OTHER ==
[2022-02-21 17:48] LABS: HEMOGLOBIN 14.4 g/dl (13.5-17.5); MEAN CORPUSCULAR HEMOGLOBIN 34.7 pg (27.0-33.0); MEAN CORPUSCULAR HGB CONC 33.5 g/dl (32.0-36.5); MEAN CORPUSCULAR VOLUME 103.6 fl (80.0-96.0); PLATELET COUNT, AUTOMATED 278 10^3/uL (150-450); RED BLOOD COUNT 4.15 10^6/uL (4.30-6.10); WHITE BLOOD COUNT 14.7 10^3/uL (4.0-10.0)
[2022-02-21 18:28] LABS: CALCIUM LEVEL 9.3 MG/DL (8.8-10.2); CREATININE FOR GFR 1.75 MG/DL (0.70-1.30); DIGOXIN LEVEL 1.9 NG/ML (0.5-2.0); GLOMERULAR FILTRATION RATE 40.7 (>42); MAGNESIUM LEVEL 2.1 MG/DL (1.8-2.4); POTASSIUM SERUM 4.1 MEQ/L (3.5-5.1); THYROID STIMULATING HORMONE 1.61 uIU/ML (0.358-3.740)
== END ==
LOC: M LAB 16:15
PROVIDERS: ATTEND Internal Medicine Cardiovascular Disease
DX: I48.91 Unspecified atrial fibrillation (principal)

== ENCOUNTER → 2022-05-08 | Outpatient (CLI) | payer OTHER ==
[2022-05-08 10:51] LABS: FREE T4 1.17 NG/DL (0.76-1.46); THYROID STIMULATING HORMONE 1.57 uIU/ML (0.358-3.740)
== END ==
LOC: M LAB 09:24
PROVIDERS: ATTEND Internal Medicine Endocrinology, Diabetes & Metabolism
DX: E06.9 Thyroiditis, unspecified (principal)

== ENCOUNTER → 2022-05-30 | Outpatient (CLI) | payer OTHER | LOC: M RAD 10:20 | PROVIDERS: ATTEND Orthopaedic Surgery | DX: S32.001S Stable burst fracture of unspecified lumbar vertebra, sequela (principal); M85.88 Other specified disorders of bone density and structure, other site ==

== ENCOUNTER → 2022-06-12 | Outpatient (CLI) | payer OTHER ==
[2022-06-12 16:21] LABS: FREE T4 0.95 NG/DL (0.76-1.46); THYROID STIMULATING HORMONE 2.94 uIU/ML (0.358-3.740)
== END ==
LOC: M LAB 12:31
PROVIDERS: ATTEND Internal Medicine Endocrinology, Diabetes & Metabolism
DX: E06.9 Thyroiditis, unspecified (principal)